=== PATIENT | female | born 1975 | race Caucasian/White ===

== ENCOUNTER 2019-10-17 19:07 | Emergency (ER) | payer MEDICARE, SELFPAY ==
--- NOTE | ~2019-10-17 | CT_ITS ---
EXAMINATION: CT facial bones wo con DATE: 10/17/2019 20:00 INDICATION: Nasal pain after fall from bed. TECHNIQUE: Computed tomography (CT) of the maxillofacial region was performed without intravenous con trast. The dose-length product was 579.22 mGy-cm. Automated exposure control and iterative reconstruc tion technique were employed. COMPARISON: None FINDINGS: MAXILLOFACIAL CT: There is a comminuted, mildly displaced bilateral nasal fracture. Orbits appear to be intact. Lamina papyracea within normal limits. There is left mastoid effusion. Ma ndible is intact. Temporomandibular joints are symmetric. Zygomatic arches are intact. Pterygoid plat es within normal limits. IMPRESSION: 1. Comminuted, mildly displaced bilateral nasal fractures. 2: Left mastoid effusion. Reviewed, dictated and finalized at location A. OR EXTRACTOR
--- NOTE | ~2019-10-17 | CT_ITS ---
EXAMINATION: CT brain wo con DATE: 10/17/2019 20:51 INDICATION: Dizziness. Head injury. TECHNIQUE: Computed tomography (CT) of the head was performed without intravenous contrast. The dose- length product was 529.67 mGy-cm. The mA was adjusted according to patient size. Iterative reconstruc tion technique was employed. COMPARISON: None FINDINGS: No acute intracranial hemorrhage, infarction, mass or mass effect. No ventriculomegaly or m idline shift. Basilar cisterns are patent. Paranasal sinuses are pneumatized. There is a left mastoid effusion. No depressed skull fractures. IMPRESSION: 1. No acute intracranial abnormality. Reviewed, dictated and finalized at location A. 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
[2019-10-17 19:12] VITALS: BP 133/97; PULSE 83; RESP 16; TEMP 36.4; O2SAT 97
--- NOTE | 2019-10-17 20:36 | ED.FALL ---
HPI - Fall General Chief Complaint: Fall Stated Complaint: nose injury Time Seen by Provider: 10/17/19 20:28 Source: patient and RN notes reviewed Mode of arrival: ambulatory Limitations: no limitations History of Present Illness HPI Narrative: Pt is a 44 y/o female presenting to the ED c/o frequent falls. Pt states she has fallen 6 times within the past 24 hrs. Pt notes she has been having these episodes for about 6 months intermittently and suspects she is falling asleep every time. PAtient states last night she remembers getting in bed and then she states she fell out of the bed. Pt states today she fell on her face and reports nasal pain, but denies any other injuries. Pt states her PCP, Dr. Morgan, is concerned about Narcolepsy and has ordered sleep studies for the pt. Pt denies experiencing dizziness prior to the falls, and also denies N/V, CP, or SOB. Pt states she is currently taking a Diuretic and previously had hypokalemia but notes her most recent blood test had a normal potassium level and she is not currently being supplemented for it. Onset (ago): month(s) (6) Loss of consciousness: yes Symptoms prior to fall: none Associated symptoms (after fall): other (Nasal pain) Related Data Allergies Allergy/AdvReac Type Severity Reaction Status Date / Time codeine Allergy Unknown Verified 05/29/17 11:47 naproxen Allergy Unknown Verified 05/29/17 11:47 phenobarbital Allergy Unknown Verified 05/29/17 11:47 ciprofloxacin AdvReac Intermediate Other Verified 12/28/18 06:49 levofloxacin AdvReac Intermediate Other Verified 12/28/18 06:49 Review of Systems Review of Systems: All systems reviewed & are unremarkable except as noted in HPI and below ENT: Reports nose pain Cardiovascular: Cardiovascular: Denies chest pain Respiratory: Respiratory: Denies dyspnea Gastrointestinal: Gastrointestinal: Denies nausea and Denies vomiting Neurologic: Denies dizziness PMFSH Past Medical History Medical History Abnormal uterine bleeding Anxiety Arthritis Bronchitis Colitis COPD (chronic obstructive pulmonary disease) Depression Fibroid Fibromyalgia Finger fracture GERD (gastroesophageal reflux disease) Hernia History of bipolar disorder HTN (hypertension) IBS (irritable bowel syndrome) Seizures UTI (urinary tract infection) Surgical History Surgical History H/O laparoscopy H/O: hysterectomy History of cholecystectomy History of ear surgery Lt typanoplasty History of tonsillectomy Family History Family History Other Cerebrovascular accident Family history of arthritis Family history of cardiovascular disease Family history of malignant neoplasm Family history of mental disorder Hypertension Social History Social History Smoking status: Current every day smoker Alcohol intake: never Gender identity (if verbalized by the patient): Female Exam Narrative: Exam Narrative: GENERAL: Well-appearing, well-nourished, and in no acute distress. HEAD: Normocephalic, atraumatic EYES: PERRLA and EOMI, conjunctiva clear without discharge EARS: TM's clear bilaterally without erythema or dullness NOSE: bruising at nasal bridge, no active epistaxis, no septal hematomaNares clear, THROAT:Mucous membranes moist, Oropharynx normal without erythema, exudate, peritonsillar swelling or fluctuance NECK: Supple, without lymphadenopathy or mass RESPIRATORY: No respiratory distress, Airway patent, Respirations non-labored, Clear to auscultation without rales, rhonchi or wheeze HEART: Regular rate and rhythm. No murmur heard. Normal peripheral pulses. ABDOMEN: Soft, nontender, nondistended, normal active bowel sounds. No masses. No rebound or guarding, No organomegaly. EXTREMITIES: No edema, normal strength with full range of motion. SKIN: Warm, dry,
--- NOTE | 2019-10-17 20:39 | ECG_ITS ---
Measurements Intervals [place] Rate: 78 P: 44 DE: 147 QRS: -7 QRSD: 106 T: -8 QT: 359 QTc: 411 Interpretive Statements SINUS RHYTHM POSSIBLE LEFT ATRIAL ENLARGEMENT POSSIBLE LEFT VENTRICULAR HYPERTROPHY MINIMAL Q WAVES- LATERAL LEADS BORDERLINE ST-T WAVE ABNORMALITY- ANTEROLAT/INF LEADS BORDERLINE ECG Electronically Signed On 10-18-2019 6:34:17 FAST FOOD RESTAURANT MANAGER by Mo Kenyon D.O.
[2019-10-17 21:06] LABS: Basophils Absolute Auto 0.1 K/mm3 (0.0-0.1); Basophils Percent Auto 0.5 % (0.2-1.2); Eosinophils Absolute Auto 0.6 K/mm3 (0-0.3); Hematocrit 41.9 % (37.0-47.0); Hemoglobin 13.6 g/dL (12.0-15.0); Immature Granulocyte Absolute 0.06 K/mm3 (0.00-0.031); Immature Granulocyte Percent A 0.4 % (0-0.5); Lymphocytes Percent Auto 22.2 % (18.3-44.2); Mean Corpuscular HGB Conc 32.5 g/dl (32-36); Mean Corpuscular Hemoglobin 28.3 pg (26-34); Mean Corpuscular Volume 87.1 fl (80-100); Mean Platelet Volume 10.4 fl (7.4-10.4); Monocytes Absolute Auto 1.2 K/mm3 (0.1-0.6); Monocytes Percent Auto 8.3 % (2.6-8.5); Neutrophils Absolute Auto 9.3 K/mm3 (1.3-6.7); Neutrophils Percent Auto 64.6 % (45.5-73.1); Platelet Count Result 353 k/mm3 (150-375); Red Blood Count 4.81 M/mm3 (4.2-5.4); White Blood Count 14.4 K/mm3 (4.5-10.0)
[2019-10-17 21:08] VITALS: BP 103/62; BP 127/74; BP 98/41; PULSE 75; PULSE 78; PULSE 81
[2019-10-17 21:18] LABS: Blood Urea Nitrogen 28 mg/dL (7-17); Calcium 8.9 mg/dL (8.4-10.2); Carbon Dioxide 32 mmol/L (22-30); Chloride 87 mmol/L (98-107); Estimated CRCL calculation 69 ml/min; Estimated Glomerular Filt Rate > 60; Glucose 110 mg/dL (65-105); Magnesium 2.1 mg/dL (1.6-2.3); Potassium 3.1 mmol/L (3.4-5.0); Sodium 134 mmol/L (137-145)
[2019-10-17 21:34] LABS: Add Urine Microscopic? YES; Appearance Urine Clear (Clear); Bilirubin Urine Negative (Negative); Blood Urine 1+ (Negative); Color Urine Straw (Yellow); Glucose Urine UA Negative (Negative); Ketones Urine Negative (Negative); Leukocyte Esterase Ur Negative LEU/UL (Negative); Mucus Urine Rare /lpf; Nitrate Urine Negative (Negative); Protein Urine Negative (Negative); RBC Urine 0-2 /hpf (0-2); Specific Grav Ur 1.014 (1.001-1.035); Squamous Epithelial Cell Urine Many /hpf (Few); Urobilinogen Urine Negative mg/dL (<2.0); WBC Urine 0-3 /hpf
[2019-10-17] MEDS: POTASSIUM CHLORIDE 20 MEQ TABLET 40 MEQ PO (22:21)
[2019-10-17] MEDS: LACTATED RINGERS 1,000 ML 999 ML IV CONT (22:21)
[2019-10-17] MEDS: ONDANSETRON HCL ODT 4 MG TABLET PO (22:22)
== END 2019-10-17 23:00 | disposition home or self-care (01) ==
PROVIDERS: Emergency Provider General Practice; PCP Family Medicine Adolescent Medicine
DX: S02.2XXA Fracture of nasal bones, initial encounter for closed fracture (principal); E87.6 Hypokalemia; R29.6 Repeated falls; M19.90 Unspecified osteoarthritis, unspecified site; J44.9 Chronic obstructive pulmonary disease, unspecified; M79.7 Fibromyalgia; K21.9 Gastro-esophageal reflux disease without esophagitis; I10 Essential (primary) hypertension; K58.9 Irritable bowel syndrome, unspecified; Z87.440 Personal history of urinary (tract) infections; F17.200 Nicotine dependence, unspecified, uncomplicated; W19.XXXA Unspecified fall, initial encounter
CPT/HCPCS: 36415; 70450; 70486; 80048; 81001; 83735; 85025; 93005; 99284; A9270; J7120

== ENCOUNTER 2019-10-26 14:20 | Outpatient (CLI) | payer MEDICARE, SELFPAY ==
--- NOTE | 2019-11-08 03:16 | SLEEP_ITS ---
Basic Nocturnal Polysomnogram DATE OF STUDY: 10/26/2019 REASON FOR STUDY: Hypersomnia. HISTORY: The patient is a 44-year-old female, 61 inches tall, weighing 193 pounds with a body mass index of 36.5. She was referred for hypersomnolence and excessive daytime fatigue. She did not complete a sleep survey, but did complete 1 in 2016, when she had a prior sleep study on May 31. At that time, she was having difficulty falling asleep and staying asleep. She was having history of snoring, which was loud enough that others complained about it. She did not wake up gasping for breath at night. She constantly complained of sweating at night. She denied heart palpitations at night. She frequently was falling asleep during the day, but not involuntarily or while driving. She did not have loss of muscle tone with extreme emotion. She denied sleep paralysis. She occasionally had vivid dreamlike scenes upon awakening or falling asleep. She rarely remembers her dreams. She constantly had depression and anxiety. She frequently had problems with crawly and achy feelings in her legs. She constantly woke up feeling stiff in the morning with sore achy muscles. Currently, she is sleeping during the day. Her sons will wake her up to ask her to do certain tasks. PAST MEDICAL HISTORY: Depression, acid reflux, bipolar disorder, chronic pain. CURRENT MEDICATIONS: 1. Sertraline 100 mg a day. 2. Bupropion XL 300 mg a day. 3. Cyclobenzaprine 10 mg t.i.d. 4. Metoprolol 50 mg a day. 5. Pregabalin 150 mg. 6. Buspirone 15 mg. 7. Estradiol 1 mg. 8. Methylphenidate 20 mg. 9. Indomethacin 50 mg. 10. Oxycodone/acetaminophen 10/325. 11. Divalproex 250 mg. 12. Omeprazole 20 mg. HABITS: There is a history of tobacco use. Previously, she was smoking 1-1/2 packs per day. She was using 4 cups of coffee per day. No alcohol or recreational drug use. DESCRIPTION OF THE STUDY: On the [place] Sleepiness Scale, her prior score was 11. This was conducted as a basic nocturnal polysomnogram using the [employer] multiple channel system including EOG, EEG, submental EMG, EKG, nasal and oral airflow using thermistors and nasal pressure sensors, chest and abdominal belts, body position data and pulse oximetry. This study was scored using [facility] guidelines. Duration of the recording time was 540.2 minutes, sleep time was 487.7 minutes. Sleep efficiency was 90.3%. The patient's sleep latency was 0 minutes as she was falling asleep while being hooked up with the various leads. Sleep architecture showed 3.7% stage 1 sleep, 55.8% stage 2 sleep, 21.3% stage 3 sleep and 9.5% stage REM. She spent 33.8% of the study supine, the remainder was non-supine. Sleep was fragmented. She had early sleep latency, but prolonged REM latency. She had a large amount of stage 3 sleep for her age. She had irregular sleep architecture with only 2 episodes of REM, which were both late in the study. She had fragmented sleep with shifts between stage wake, stage I, and stage REM. The overall apnea-hypopnea index was 5.2. The obstructive index is 4.8 and the central index is 0.4. She had 6 obstructive hypopneas in supine REM for an index of 55.4, which is extremely high. She had 9 obstructive hypopneas in non-supine REM for an index of 12.0. She had 1 obstructive apnea, 2 central apneas, 5 obstructive hypopneas in supine non-REM for an index of 2.7. There was 1 central apnea, 18 obstructive hypopneas in non-supine non-REM for an index of 4.4. The supine index was 4.5, non-supine index was 5.5. The lowest desaturation was 83%. The patient spent 16.6 minutes below 88%, which was 3.1% of the study. She had 41 desaturations of 4% or greater for an index of 4.6. REM desaturation index was 19.9. Mean saturation for the s
== END 2019-10-26 14:21 | disposition home or self-care (01) ==
LOC: ANHCSM 01-12 14:20
PROVIDERS: PCP Family Medicine Adolescent Medicine; Visit Provider Family Medicine Adolescent Medicine
DX: G47.10 Hypersomnia, unspecified (principal); G47.419 Narcolepsy without cataplexy; G47.33 Obstructive sleep apnea (adult) (pediatric); Z68.36 Body mass index [BMI] 36.0-36.9, adult
CPT/HCPCS: 95810

== ENCOUNTER 2020-05-09 14:21 | Outpatient (CLI) | payer MEDICARE, SELFPAY ==
--- NOTE | ~2020-05-09 | MM_ITS ---
EXAMINATION: MM screening jose BI w bhavik HISTORY: Screening TECHNIQUE: Craniocaudal and mediolateral oblique 3-D tomosynthesis images were obtained and synthetic 2-D images were generated. CAD analysis was submitted and interpreted. COMPARISON: Comparison to multiple prior studies sequentially, with oldest reviewed study dated 12/20. BREAST PARENCHYMAL COMPOSITION: There are scattered areas of fibroglandular density. FINDINGS: There is no evidence of suspicious mass, calcification, or architectural distortion to sugg est malignancy in either breast. There has been no suspicious interval change. IMPRESSION: 1. No mammographic evidence of malignancy. 2. Recommend routine screening mammography in one year. BI-RADS Category 1: Negative Reviewed, dictated and finalized at location A.
== END 2020-05-09 14:22 | disposition home or self-care (01) ==
PROVIDERS: PCP Family Medicine Adolescent Medicine; Visit Provider Obstetrics & Gynecology
DX: Z12.31 Encounter for screening mammogram for malignant neoplasm of breast (principal)
CPT/HCPCS: 77063; 77067

== ENCOUNTER 2021-01-14 11:16 | Outpatient (CLI) | payer MEDICARE, SELFPAY | END 2021-01-14 11:17 | disposition home or self-care (01) | LOC: ANHAUDIO 11:17 | PROVIDERS: PCP Family Medicine Adolescent Medicine; Visit Provider Otolaryngology | DX: H91.90 Unspecified hearing loss, unspecified ear (principal) | CPT/HCPCS: 92557; 92567 ==

== ENCOUNTER 2021-02-16 19:03 | Emergency (ER) | payer MEDICARE, SELFPAY ==
--- NOTE | ~2021-02-16 | XR_ITS ---
XR abdomen/kub 1V DATE: 02/16/2021 20:30 INDICATION: Constipation. Severe lower abdominal pain. Hernia. TECHNIQUE: 2 supine AP views COMPARISON: 10/19/2018 CT abdomen pelvis FINDINGS: There is a prominent of fecal material and gas within the colon, without apparent obstructi on. There are some gas-distended nondilated small bowel segments overlying the left lower abdomen. Surgical clips, right upper quadrant, consistent with cholecystectomy. No visceromegaly is evident. N o significant abnormal calcification is noted. IMPRESSION: Nonspecific abdomen Reviewed, dictated and finalized at Location A. Reviewed, dictated and finalized at location A. IMPRESSION: Nonspecific abdomen
--- NOTE | ~2021-02-16 | CT_ITS ---
EXAMINATION: CT abdomen pelvis w con INDICATION: Generalized abdominal pain TECHNIQUE: Computed tomographic images of the abdomen and pelvis were obtained after the administrati on of 100 cc of Omnipaque 350 intravenous contrast. The dose-length product (DLP) was 1057.06 mGy-cm. Automated exposure control and iterative reconstruction technique were employed. COMPARISON: 10/19/2018 FINDINGS: The lung bases are clear. The heart size is normal. The gallbladder is surgically absent. T here is mild enlargement of the common bile duct and central intrahepatic ducts which is likely due t o post cholecystectomy state. A 1.7 cm hemangioma is noted in the right hepatic lobe. The spleen, brewster creas, and right adrenal gland are normal. There is a 1.6 cm adenoma of the left adrenal gland. The k idneys are unremarkable. No pathologically enlarged abdominal or pelvic lymph nodes are identified. T here is no free intraperitoneal gas or evidence of bowel obstruction. There are two adjacent large mi dline ventral hernias containing fat and fluid. One is present at the level of the umbilicus and the other slightly more cranial. There is stranding of the associated herniated fat. The appendix is norm al. There is moderate lower lumbar spondylosis. IMPRESSION: 1. Large midline ventral hernias containing fat and fluid. Recommend clinical correlation for signs o f incarceration given stranding of the herniated fat. Reviewed, dictated and finalized at location A. IMPRESSION: 1. Large midline ventral hernias containing fat and fluid. Recommend clinical c orrelation for signs of incarceration given stranding of the herniated fat.
[2021-02-16 19:18] VITALS: BP 147/81; PULSE 86; RESP 18; TEMP 36.6; O2SAT 97
[2021-02-16 19:43] LABS: Basophils Absolute Auto 0.1 K/mm3 (0.0-0.1); Basophils Percent Auto 0.3 % (0.2-1.2); Eosinophils Absolute Auto 0.4 K/mm3 (0-0.3); Eosinophils Percent Auto 2.2 % (0-4.4); Hematocrit 44.9 % (37.0-47.0); Hemoglobin 14.8 g/dL (12.0-15.0); Immature Granulocyte Absolute 0.08 K/mm3 (0.00-0.031); Immature Granulocyte Percent A 0.5 % (0-0.5); Lymphocytes Percent Auto 31.7 % (18.3-44.2); Mean Corpuscular Hemoglobin 29.8 pg (26-34); Mean Corpuscular Volume 90.3 fl (80-100); Mean Platelet Volume 10.3 fl (7.4-10.4); Monocytes Absolute Auto 1.2 K/mm3 (0.1-0.6); Monocytes Percent Auto 7.2 % (2.6-8.5); Neutrophils Absolute Auto 9.7 K/mm3 (1.3-6.7); Neutrophils Percent Auto 58.1 % (45.5-73.1); Platelet Count Result 342 k/mm3 (150-375); Red Blood Count 4.97 M/mm3 (4.2-5.4); Red Cell Distribution Width 13.1 % (11.5-14.5); White Blood Count 16.7 K/mm3 (4.5-10.0)
[2021-02-16 19:49] VITALS: BP 151/100; PULSE 80; RESP 18; O2SAT 95
[2021-02-16 19:51] LABS: Add Urine Microscopic? YES; Appearance Urine Clear (Clear); Bacteria Urine Trace /hpf; Bilirubin Urine 1+ (Negative); Blood Urine Negative (Negative); Color Urine Amber (Yellow); Glucose Urine UA Negative (Negative); Ketones Urine Trace mg/dL (Negative); Leukocyte Esterase Ur Negative LEU/UL (Negative); Mucus Urine Few /lpf; Nitrate Urine Negative (Negative); Protein Urine 2+ mg/dL (Negative); RBC Urine 0-2 /hpf (0-2); Squamous Epithelial Cell Urine Moderate /hpf (Few); WBC Urine 0-3 /hpf
[2021-02-16 19:52] LABS: Specific Grav Ur 1.035 (1.001-1.035)
[2021-02-16 19:54] LABS: Alanine Aminotransferase 13 U/L (4-35); Albumin Level 4.2 g/dL (3.5-5.1); Alkaline Phosphatase 107 U/L (38-126); Anion Gap 7 mmol/L (8-16); Aspartate Amino Transferase 20 U/L (14-36); Bilirubin,Total 0.3 mg/dL (0.2-1.3); Blood Urea Nitrogen 14 mg/dL (7-17); Calcium 8.7 mg/dL (8.4-10.2); Carbon Dioxide 30 mmol/L (22-30); Chloride 101 mmol/L (98-107); Estimated Glomerular Filt Rate 60; Glucose 90 mg/dL (65-105); Lipase 48 U/L (23-300); Potassium 3.8 mmol/L (3.4-5.0); Sodium 138 mmol/L (137-145)
--- NOTE | 2021-02-16 20:08 | ED.GENADULT ---
HPI - General Adult General Chief complaint: Abdominal Pain Stated complaint: hernia Time Seen by Provider: 02/16/21 19:27 History of Present Illness HPI narrative: Patient is a 45-year-old female who presents ER with mid abdominal pain. Patient has a known ventral hernia. Reports become more sore today and she first noticed it while leaning against a countertop. She has not had a bowel movement in 2 days. No bloating. Denies nausea/vomiting/shortness of breath/chest pain. Has taken Percocet without improvement of her discomfort. Patient reports radiation to her flank bilaterally. No urinary frequency urgency or dysuria. Related Data Home Medications Medication Instructions Recorded Confirmed albuterol sulfate 2.5 mg INHALATION Q4-6H PRN 07/31/20 01/24/21 bupropion HCl 300 mg 24 hr tablet, 300 mg PO QAM 07/31/20 01/24/21 extended release divalproex 250 mg tablet,delayed 250 mg PO Q12H 07/31/20 01/24/21 release omeprazole 20 mg capsule,delayed 20 mg PO DAILY 07/31/20 01/24/21 release oxycodone-acetaminophen 10 mg-325 1 tablet PO Q8H PRN 07/31/20 01/24/21 mg tablet sulindac 200 mg tablet 200 mg PO BID 07/31/20 01/24/21 estradiol 1 mg tablet 1 mg PO DAILY 01/03/21 01/24/21 venlafaxine 150 mg tablet,extended 150 mg PO DAILY 01/24/21 01/24/21 release 24 hr Allergies Allergy/AdvReac Type Severity Reaction Status Date / Time codeine Allergy Unknown Unknown Verified 01/22/21 08:10 naproxen Allergy Unknown Unknown Verified 01/22/21 08:10 phenobarbital Allergy Unknown Unknown Verified 01/22/21 08:10 ciprofloxacin AdvReac Intermediate Other Verified 01/22/21 08:10 levofloxacin AdvReac Intermediate Other Verified 01/22/21 08:10 Review of Systems Review of Systems: All systems reviewed & are unremarkable except as noted in HPI and below Constitutional: Constitutional: Denies chills, Denies fever(s) and Denies weakness Cardiovascular: Cardiovascular: Denies chest pain Respiratory: Respiratory: Denies cough and Denies dyspnea Gastrointestinal: Gastrointestinal: Reports abdominal pain, Denies bloating, Reports constipation, Denies diarrhea, Denies nausea and Denies vomiting Genitourinary: Genitourinary: Denies hematuria, Denies dysuria and Reports flank pain PMFSH Past Medical History Medical History Abnormal uterine bleeding Anxiety Arthritis Arthritis of carpometacarpal (CMC) joint of right thumb BMI 36.0-36.9,adult Bronchitis Colitis COPD (chronic obstructive pulmonary disease) Depression Fibroid Fibromyalgia Finger fracture GERD (gastroesophageal reflux disease) Hernia History of bipolar disorder HTN (hypertension) IBS (irritable bowel syndrome) Seizures UTI (urinary tract infection) Surgical History Surgical History H/O knee surgery left tka 2018, Dr. mccauley right tka 2019, Dr. mccauley H/O laparoscopy H/O: hysterectomy History of cholecystectomy History of ear surgery Lt typanoplasty History of tonsillectomy Family History Family History Other Cerebrovascular accident Family history of arthritis Family history of cardiovascular disease Family history of malignant neoplasm Family history of mental disorder Hypertension Social History Social History Smoking status: Current every day smoker Alcohol intake: never Substance use type: marijuana Other substance usage details: medical marijuana Gender identity (if verbalized by the patient): Female Exam Narrative: Exam Narrative: GENERAL: Well-appearing, well-nourished, and in no acute distress. HEAD: Normocephalic, atraumatic. ENT: Mucous membranes moist. CHEST: Clear to auscultation. No respiratory distress. HEART: Regular rate and rhythm. Normal peripheral pulses. ABDOMEN: Soft, nontender, nondisten
[2021-02-16] MEDS: MORPHINE SULFATE (*CRX) 4 MG/ML INJ IV PUSH ×2 (20:15→22:30)
[2021-02-16 20:44] VITALS: BP 130/87; PULSE 75; RESP 16; O2SAT 98
--- NOTE | 2021-02-16 21:27 | PC.NURSE ---
pt called out using call light, states her pain has returned. this rn informed md perrin. he states hes going to put in orders for CT of abd and bentyl.
[2021-02-16] MEDS: DICYCLOMINE HCL INJ 20 MG/2 ML VIAL IM (21:33)
[2021-02-16 21:35] VITALS: BP 138/82; PULSE 72; RESP 18; O2SAT 97
--- NOTE | 2021-02-16 22:07 | PC.NURSE ---
pt ambulating to restroom at this time. states pain has decreased to 5/10. md notified.
[2021-02-16 22:19] VITALS: BP 129/83; PULSE 71; RESP 18; O2SAT 97
[2021-02-16 23:39] VITALS: BP 125/89; PULSE 82; RESP 18; O2SAT 99
[2021-02-17 00:16] VITALS: BP 125/76; PULSE 80; RESP 16; O2SAT 100
== END 2021-02-17 00:18 | disposition home or self-care (01) ==
PROVIDERS: Family Medicine; Emergency Provider Emergency Medicine; PCP Family Medicine Adolescent Medicine
DX: K43.9 Ventral hernia without obstruction or gangrene (principal); F41.9 Anxiety disorder, unspecified; M19.90 Unspecified osteoarthritis, unspecified site; J44.9 Chronic obstructive pulmonary disease, unspecified; F32.9 Major depressive disorder, single episode, unspecified; M79.7 Fibromyalgia; K21.9 Gastro-esophageal reflux disease without esophagitis; I10 Essential (primary) hypertension; G47.30 Sleep apnea, unspecified
CPT/HCPCS: 36415; 74018; 74177; 80053; 81001; 81025; 83690; 85025; 96372; 96374; 96376; 99284; J0500; J2270; Q9967

== ENCOUNTER 2021-06-02 10:34 | Emergency (ER) | payer MEDICARE, SELFPAY ==
[2021-06-02 11:12] VITALS: BP 148/84; PULSE 62; RESP 14; TEMP 36.1; O2SAT 98
--- NOTE | 2021-06-02 12:22 | ED.LOWEXIN ---
HPI - Extremity Injury (Lower) General Chief Complaint: Extremity Injury, Lower Stated Complaint: rt toe pain History of Present Illness HPI Narrative: This is a 46-year-old female comes in complaining of right toe pain states it has been going on for the past week patient states that she tried to get this to due to been swollen and is draining Related Data Home Medications Medication Instructions Recorded Confirmed bupropion HCl 300 mg 24 hr tablet, 300 mg PO QAM 07/31/20 06/02/21 extended release divalproex 250 mg tablet,delayed 250 mg PO Q12H 07/31/20 06/02/21 release omeprazole 20 mg capsule,delayed 20 mg PO DAILY 07/31/20 06/02/21 release oxycodone-acetaminophen 10 mg-325 1 tablet PO Q6H PRN 07/31/20 06/02/21 mg tablet sulindac 200 mg tablet 200 mg PO BID 07/31/20 06/02/21 estradiol 1 mg tablet 1 mg PO DAILY 01/03/21 06/02/21 venlafaxine 150 mg tablet,extended 150 mg PO DAILY 01/24/21 06/02/21 release 24 hr atorvastatin 20 mg tablet 20 mg PO DAILY 04/29/21 06/02/21 metoprolol succinate 50 mg 50 mg PO DAILY 04/29/21 06/02/21 tablet,extended release 24 hr Allergies Allergy/AdvReac Type Severity Reaction Status Date / Time codeine Allergy Unknown Migraine Verified 06/02/21 11:25 naproxen Allergy Unknown Swelling Verified 06/02/21 11:25 phenobarbital Allergy Unknown Seizure Verified 06/02/21 11:25 ciprofloxacin AdvReac Intermediate Other Verified 06/02/21 11:25 levofloxacin AdvReac Intermediate Other Verified 06/02/21 11:25 Review of Systems Review of Systems: CONSTITUTIONAL: Denies fever, chills, or sweats. EYES: Denies visual changes, redness, or discharge. ENT: Denies rhinorrhea, congestion, sore throat, or otalgia. CARDIOVASCULAR:Denies chest pain, palpitations, or edema. RESPIRATORY: Denies cough or dyspnea. GASTROINTESTINAL: Denies abdominal pain, nausea, vomiting, or diarrhea. GENITOURINARY: Denies dysuria or hematuria. SKIN:[Denies rash or itching. MUSCULOSKELETAL:Denies back pain, positive right toe pain joint pain, or myalgia. NEUROLOGIC: Denies headache, numbness, or weakness. PSYCHIATRIC:Denies anxiety or depression [facility] Past Medical History Medical History (Updated 06/02/21 @ 12:24 by Ayan Bejarano NP) Abnormal uterine bleeding Anxiety Arthritis Arthritis of carpometacarpal (CMC) joint of right thumb BMI 36.0-36.9,adult Bronchitis Colitis COPD (chronic obstructive pulmonary disease) Depression Fibroid Fibromyalgia Finger fracture GERD (gastroesophageal reflux disease) Hernia History of bipolar disorder HTN (hypertension) IBS (irritable bowel syndrome) Seizures UTI (urinary tract infection) Surgical History Surgical History H/O knee surgery left tka 2018, Dr. mccauley right tka 2019, Dr. mccauley H/O laparoscopy H/O: hysterectomy History of cholecystectomy History of ear surgery Lt typanoplasty History of tonsillectomy Family History Family History Father Heart disease Hypertension Mother Heart disease Hypertension Melanoma Other Cerebrovascular accident Family history of arthritis Family history of cardiovascular disease Family history of malignant neoplasm Family history of mental disorder Social History Social History Years smoked: 25 Smoking status: Current every day smoker Alcohol intake: never Substance use type: marijuana Other substance usage details: medical marijuana Additional occupation/education comments: disabled Gender identity (if verbalized by the patient): Female Comments At time as signature, I have reviewed and agree with nursing past medical, social, surgical and family history. Please see nursing chart for further information. There is no relevant family history pertinent to the presenting complaint. Exam Narrative: GE
== END 2021-06-02 12:30 | disposition home or self-care (01) ==
PROVIDERS: Emergency Provider Nurse Practitioner Family; PCP Family Medicine Adolescent Medicine
DX: L60.0 Ingrowing nail (principal); F17.200 Nicotine dependence, unspecified, uncomplicated; J44.9 Chronic obstructive pulmonary disease, unspecified; M79.7 Fibromyalgia; K21.9 Gastro-esophageal reflux disease without esophagitis; I10 Essential (primary) hypertension; G40.909 Epilepsy, unspecified, not intractable, without status epilepticus; F41.9 Anxiety disorder, unspecified; F32.A Depression, unspecified; M18.9 Osteoarthritis of first carpometacarpal joint, unspecified
CPT/HCPCS: 99213; G0463

== ENCOUNTER 2021-07-24 15:56 | Emergency (ER) | payer MEDICARE, SELFPAY ==
--- NOTE | ~2021-07-24 | XR_ITS ---
EXAMINATION: XR orbits min 4V DATE: 07/24/2021 16:56 INDICATION: Right periorbital injury. TECHNIQUE: 4 views of the orbits were obtained. COMPARISON: None. FINDINGS: Bone alignment is normal. No fracture. IMPRESSION: 1. No fracture. Reviewed, dictated and finalized at location B. GER EDITORIAL IMPRESSION: 1. No fracture.
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
[2021-07-24 16:04] VITALS: BP 146/89; PULSE 84; RESP 14; TEMP 36.5; O2SAT 98
== END 2021-07-24 17:13 | disposition home or self-care (01) ==
PROVIDERS: Emergency Provider Nurse Practitioner Family; PCP Family Medicine Adolescent Medicine
DX: S05.11XA Contusion of eyeball and orbital tissues, right eye, initial encounter (principal); I10 Essential (primary) hypertension; F17.200 Nicotine dependence, unspecified, uncomplicated; W20.8XXA Other cause of strike by thrown, projected or falling object, initial encounter
CPT/HCPCS: 70200; 99213; G0463

== ENCOUNTER 2022-01-13 12:10 | Outpatient (CLI) | payer MEDICARE, SELFPAY ==
--- NOTE | ~2022-01-13 | XR_ITS ---
EXAMINATION: XR chest 2V 01/13/2022 13:25 INDICATION: Dyspnea PROCEDURE: 2 view chest COMPARISON: 10/19/2018 FINDINGS: The lungs are clear. The cardiomediastinal silhouette is within normal limits. There are no pleural effusions. There is no pneumothorax suspected. There are cholecystectomy clips. IMPRESSION: 1: NO ACUTE CARDIOPULMONARY DISEASE. Reviewed, dictated and finalized at location A.
--- NOTE | 2022-01-13 12:31 | ECG_ITS ---
Measurements Intervals Fowler Rate: 58 P: 25 KS: 142 QRS: 7 QRSD: 102 T: 12 QT: 406 QTc: 400 Interpretive Statements SINUS BRADYCARDIA BASELINE ARTIFACT- I, II, III, AVR, AVL, AVF BORDERLINE ECG Electronically Signed On 01-13-2022 12:48:45 CDT by Mo Kenyon D.O.
[2022-01-13 12:55] LABS: Basophils Absolute Auto 0.1 K/mm3 (0.0-0.1); Basophils Percent Auto 0.5 % (0.2-1.2); Eosinophils Absolute Auto 0.3 K/mm3 (0-0.3); Eosinophils Percent Auto 2.3 % (0-4.4); Hematocrit 46.2 % (37.0-47.0); Hemoglobin 14.9 g/dL (12.0-15.0); Immature Granulocyte Absolute 0.04 K/mm3 (0.00-0.031); Immature Granulocyte Percent A 0.3 % (0-0.5); Lymphocytes Absolute Auto 4.85 K/mm3 (0.9-3.2); Lymphocytes Percent Auto 35.7 % (18.3-44.2); Mean Corpuscular HGB Conc 32.3 g/dl (32-36); Mean Corpuscular Hemoglobin 29.3 pg (26-34); Mean Corpuscular Volume 90.8 fl (80-100); Mean Platelet Volume 10.6 fl (7.4-10.4); Monocytes Absolute Auto 0.8 K/mm3 (0.1-0.6); Neutrophils Absolute Auto 7.5 K/mm3 (1.3-6.7); Neutrophils Percent Auto 55.2 % (45.5-73.1); Platelet Count Result 321 k/mm3 (150-375); Red Blood Count 5.09 M/mm3 (4.2-5.4); Red Cell Distribution Width 12.9 % (11.5-14.5); White Blood Count 13.6 K/mm3 (4.5-10.0)
[2022-01-13 13:11] LABS: Anion Gap 4 mmol/L (8-16); Blood Urea Nitrogen 12 mg/dL (7-17); Calcium 8.7 mg/dL (8.4-10.2); Carbon Dioxide 31 mmol/L (22-30); Chloride 101 mmol/L (98-107); Estimated Glomerular Filt Rate > 60; Glucose 92 mg/dL (65-110); Potassium 4.4 mmol/L (3.4-5.0); Sodium 136 mmol/L (137-145)
[2022-01-13 13:19] LABS: Anisocytosis 1+ (NORMAL); Atypical Lymphocytes Present; Hypochromasia 1+ (NORMAL); Platelet Estimate Adequate (Adequate)
[2022-01-13 13:23] LABS: Valproic Acid < 10.0 ug/mL (50-120)
== END 2022-01-13 12:11 | disposition home or self-care (01) ==
LOC: ANHSURGERY 12:12
PROVIDERS: Anesthesiology; PCP Family Medicine Adolescent Medicine; Visit Provider Surgery
DX: Z01.818 Encounter for other preprocedural examination (principal); K43.9 Ventral hernia without obstruction or gangrene; G40.909 Epilepsy, unspecified, not intractable, without status epilepticus; R00.1 Bradycardia, unspecified
CPT/HCPCS: 36415; 71046; 80048; 80164; 85025; 86850; 86900; 86901; 93005

== ENCOUNTER 2022-01-17 18:18 | Observation (INO) | payer MEDICARE, SELFPAY ==
[2022-01-13 10:04] VITALS: BMI 36.2
--- NOTE | 2022-01-13 10:36 | PC.NURSE ---
Report to the Outpatient Waiting Room, entrance under the green pavilion located off [facility], at 1000 on 01-16-22. OR Time: 1200. - You and your visitor will be asked a series of questions to screen for COVID 19 for your protection. - Only one visitor is allowed at this time. - The patient visitor is requested to leave or wait in car when not with patient. - A mask is required within the hospital. Patients may have clear liquids (water, carbonated beverages, clear teas, apple juice) until 3 hours prior to surgery with a maximum of 20 ounces. 0900 - No food from midnight until time of surgery - Infants may have breast milk until 4 hours before surgery, infant formula 6 hours prior to surgery. - Children will be allowed to drink immediately following surgery. If applicable, please bring a bottle or sippy cup to assist with drinking. Juice, water, soda, and popsicles are readily available. For infants on formula, please bring formula the day of surgery. Pacifiers are allowed. Take the following medications with a SIP of water the morning of surgery: Percocet if needed, atorvastatin, bupropion, metoprolol, venlafaxine Medications to discontinue per physician: Sulindac Date to take last dose: Per Dr. Brown (Call office to see if it needs to be stopped) Please no make-up, nail surinamese, hairspray, perfume, deodorant, or body powder the day of surgery. No jewelry (including any body piercings) or valuables the day of surgery, leave them at home. Please take a shower or bath the night before, or the morning of, surgery with an antibacterial soap. (Hibiclens) Wear comfortable, loose fitting clothing. Children are encouraged to wear pajamas. - Jewelry must be removed prior to entering the operating room. Rings and piercings that are not removed may be cut off. - The hospital will not accept responsibility for valuables. - Please leave all valuables, including medications, at home the day of surgery. If you are going home after surgery, a licensed helper/driver must drive you home. - NO public transportation without another adult. - We recommend that an adult stay with you for 24 hours following discharge. - We also recommend that you do not drive, make important decision, drink alcoholic beverages, or take any drugs that were not prescribed by your health care provider for at least 24 hours after your discharge time. For Pediatric surgeries, we recommend two adults accompany the child home (only one inside the building at this time). Follow any additional instructions given to you from your surgeon. If you or anyone in your household have experienced Covid symptoms in the past week, please notify your surgeon or the nurse liaison at the phone number below for possible testing. Telephone instructions given to Barbara Stewart and asked if any additional questions and then verbalized understanding. Patient advised to call surgeon office or pre surgery nurse liaison [phone] if any additional questions.
--- NOTE | 2022-01-15 16:33 | PM.IMHP ---
H&P: HPI History of Present Illness Date/Time: 01/15/22 16:33 Chief Complaint: Ventral hernia Narrative: the patient is a 46-year-old woman whom I saw initially in the office back on April 29, 2021 for a large wide-mouth ventral hernia with associated umbilical hernia. The ventral hernia is just cephalad to the umbilical hernia. She was to have surgery last fall but canceled for personal reasons. She came back November 04, 2021 and was interested again in repairing her hernias. At this point, she also was interested in panniculectomy as she does get some rashes and irritation from the abdominal panniculus. She was referred to Dr. Ricks but later decided against the panniculectomy. She was then seen a 3rd time in the office on December 09. She continued to have supraumbilical ventral hernia as well as an umbilical hernia which had really not changed much since her initial visit of April 29, 2021. She did have a CT scan of the abdomen and pelvis February 17, 2021 which did show both the hernias as described. Patient takes narcotics chronically for fibromyalgia. She also has a history of obstructive sleep apnea not on CPAP. Recent sleep study showed an AHI I in the 50s. She smokes cigarettes and marijuana. She is taken to surgery now for laparoscopic repair of these ventral hernias under general anesthesia. activity.The hernias do cause pain, particularly with heavy activity. She had an episode of severe pain in January of 2021 which was the occasion for the CT scan referred to above. The hernias have remained reducible on her office visits but are still painful particularly when they are bulging. She is taken to surgery now for laparoscopic repair with mesh. Review of Systems Review of Systems: All systems reviewed & are unremarkable except as noted in HPI and below Constitutional: Constitutional: Denies chills and Denies fever(s) Cardiovascular: Cardiovascular: Denies chest pain, Denies diaphoresis, Denies dyspnea and Denies paroxysmal nocturnal dyspnea Respiratory: Respiratory: Reports as per HPI, Denies chest congestion, Reports cough and Denies dyspnea Integumentary/Breasts: Skin/Breast: Denies lesions and Denies rash PMFSH Past Medical History Medical History Arthritis of carpometacarpal (CMC) joint of right thumb Depression Fibromyalgia GERD (gastroesophageal reflux disease) HTN (hypertension) IBS (irritable bowel syndrome) Surgical History Surgical History H/O knee surgery left tka 2018, Dr. mccauley right tka 2019, Dr. mccauley H/O laparoscopy H/O: hysterectomy History of cholecystectomy History of ear surgery Lt typanoplasty History of tonsillectomy Family History Family History Father Heart disease Hypertension Mother Heart disease Hypertension Melanoma Other Cerebrovascular accident Family history of arthritis Family history of cardiovascular disease Family history of malignant neoplasm Family history of mental disorder Social History Social History Smoking packs per day: 1 Smoking cigarettes per day: 20.0 Years smoked: 25 Smoking pack-years: 25.00 Smoking status: Current every day smoker Tobacco type: cigarettes and e-cigarettes/vaping Second hand tobacco smoke exposure: Yes Alcohol intake: never Substance use: current Substance use type: marijuana Other substance usage details: medical marijuana Additional occupation/education comments: disabled Gender identity (if verbalized by the patient): Female Sexual Orientation (if Verbalized by the Patient): Straight or Heterosexual Spiritual care concerns: No Agree to blood products: Yes Meds Home Medications and Allergies Home Medications Medication Instructions Recorded Confirme
[2022-01-16] VITALS (18 sets, daily range): BP systolic 94–170; BP diastolic 52–88; PULSE 49–75; RESP 12–18; TEMP 36.2–36.7; O2SAT 92–100; BMI 36.3
[2022-01-16] MEDS: ACETAMINOPHEN 500 MG TABLET 1000 MG PO (10:30)
[2022-01-16] MEDS: LACTATED RINGERS 1,000 ML 30 ML IV CONT ×2 (10:35→14:21)
--- NOTE | 2022-01-16 10:49 | WPDANESEPPF ---
Anes - Initial Pre Proc Eval Procedure: Operation Date: 01/16/22 12:00 Proposed Procedures p Laparoscopic Repair Ventral Hernia - Gabriel Brown MD Date/Time: 01/16/22 10:49 Surgeon: Gabriel Brown MD Pre Op Diagnosis: ventral hernia Patient Data Age: 46 Gender: F Height: 1.55 m Weight: 87.09 kg Allergies Allergy/AdvReac Type Severity Reaction Status Date / Time codeine Allergy Unknown Migraine Verified 01/13/22 10:51 naproxen Allergy Unknown Swelling Verified 01/13/22 10:51 phenobarbital Allergy Unknown Seizure Verified 01/13/22 10:51 ciprofloxacin AdvReac Intermediate Other Verified 01/13/22 10:51 levofloxacin AdvReac Intermediate Other Verified 01/13/22 10:51 metal AdvReac Mild Rash Uncoded 01/13/22 10:51 Home Medications Medication Instructions Recorded Confirmed Type bupropion HCl 300 mg 24 hr tablet, 300 mg PO QAM 07/31/20 01/13/22 History extended release divalproex 250 mg tablet,delayed 500 mg PO HS 07/31/20 01/13/22 History release venlafaxine 150 mg tablet,extended 150 mg PO DAILY 01/24/21 01/13/22 History release 24 hr atorvastatin 20 mg tablet 40 mg PO DAILY 04/29/21 01/13/22 History estradiol 1 mg tablet 1 mg PO DAILY #90 tablet 09/20/21 01/13/22 Rx metoprolol succinate 50 mg 50 mg PO BID tablet 10/31/21 01/13/22 History tablet,extended release 24 hr pregabalin 150 mg capsule 150 mg PO BID #180 cap 10/31/21 01/13/22 Rx sulindac 200 mg tablet 200 mg PO BID #60 tablet 11/19/21 01/13/22 Rx oxycodone-acetaminophen 10 mg-325 1 tablet PO Q4H PRN #180 tablet 12/26/21 01/13/22 Rx mg tablet omeprazole 20 mg PO HS 01/13/22 01/13/22 History Patient hx anesthesia problems: none Family hx anesthesia problems: none Results Review: All pre-operative results and documents have been reviewed as part of the pre-operative evaluation. [facility] Past Medical History Medical History (Updated 01/16/22 @ 10:51 by Kun Weldon MD) Arthritis of carpometacarpal (CMC) joint of right thumb BMI 36.0-36.9,adult Chronic use of opiate drug for therapeutic purpose COPD (chronic obstructive pulmonary disease) Depression Fibromyalgia Gastro-esophageal reflux disease without esophagitis Generalized anxiety disorder GERD (gastroesophageal reflux disease) HTN (hypertension) IBS (irritable bowel syndrome) Major depressive disorder, recurrent, moderate Mixed hyperlipidemia Obstructive sleep apnea (adult) (pediatric) Tobacco abuse Ventral hernia without obstruction or gangrene Surgical History Surgical History H/O knee surgery left tka 2018, Dr. mccauley right tka 2019, Dr. mccauley H/O laparoscopy H/O: hysterectomy History of cholecystectomy History of ear surgery Lt typanoplasty History of tonsillectomy Family History Family History Father Heart disease Hypertension Mother Heart disease Hypertension Melanoma Other Cerebrovascular accident Family history of arthritis Family history of cardiovascular disease Family history of malignant neoplasm Family history of mental disorder Social History Social History Smoking packs per day: 1 Smoking cigarettes per day: 20.0 Years smoked: 25 Smoking pack-years: 25.00 Smoking status: Current every day smoker Tobacco type: cigarettes and e-cigarettes/vaping Second hand tobacco smoke exposure: Yes Alcohol intake: never Substance use: current Substance use type: marijuana Other substance usage details: medical marijuana Living arrangements: with family Additional occupation/education comments: disabled Gender identity (if verbalized by the patient): Female Sexual Orientation (if Verbalized by the Patient): Straight or Heterosexual Spiritual care concerns: No Agree to blood products: Yes Anes - Eval Final PreProcedure Day of P
--- NOTE | 2022-01-16 11:44 | WPDHPUPDATE1 ---
History and Physical Update Update Date/Time: 01/16/22 11:44 History and Physical has been reviewed, including an updated exam of the patient. There are NO changes in the patient's condition. Risks, benefits, and alternatives have been discussed and questions answered. Patient agrees to proceed with procedure.
[2022-01-16] MEDS: ceFAZolin 2 GM/D5W 50 ML 2 GM/50 ML BAG IVPB (12:06)
[2022-01-16] MEDS: LIDO 2%/EPINEPHRINE 1:100,000 20 ML VIAL INFILTRATE (12:35)
--- NOTE | 2022-01-16 13:18 | SUR.OPER ---
XIMENA ST MESH LOT [id number], 2023-06-27.
--- NOTE | 2022-01-16 13:41 | SUR.OPER ---
OPTIFIX AT LOT [id number], EXP 2023-07-28 X2
--- NOTE | 2022-01-16 14:21 | W.PM.PROC2 ---
Procedure Note - Detailed Date of Procedure 01/16/22 Pre-op Diagnosis ventral hernia, umbilical hernia Post-op Diagnosis Same Procedure Performed Laparoscopic repair ventral and umbilical hernias with 15 x [address] underlay mesh Surgeon Gabriel Brown MD Scientific Software Engineer Miriam THOMAS Anesthesia General and Local (2% lidocaine with epinephrine) Indications Patient is a 46-year-old woman with a supraumbilical ventral hernia that is large and bothersome as well as a smaller umbilical hernia. She was evaluated both by examination and CT scan. She is taken to surgery now for laparoscopic repair of these hernias. Findings There was quite a bit of chronically incarcerated omentum in both hernias. This was eventually able to be reduced. No bowel involvement was noted. The greatest width of the 2 hernias was 4 cm. The overall length of the 2 hernias was 7 cm. Description of Procedure Patient was taken to surgery and induced into general anesthesia. The abdomen is prepped and draped. Trocars were placed in the usual fashion using local anesthetic and applied Medical optical trocars. The initial left lateral subcostal trocar was placed. We insufflated and then placed a left mid abdominal lateral trocar and a left lower quadrant 10 11 trocar. There were adhesions to the anterior abdominal wall of omentum but primarily the omentum was chronically incarcerated in the 2 hernias. Traction was placed on each of the hernias and some of the fibrous attachments to the edge of the hernia defect were divided sharply. It was difficult reducing each of the hernias. Finally the umbilical hernia was able to be completely reduced. This allowed more access to the supraumbilical ventral hernia and with additional traction and dissection I was able to reduce this hernia fully as well. I then divided the attachments of the falciform ligament to the anterior abdominal wall well up to nearly the xiphoid process. This gave plenty of room for mesh attachment in the midline in the cephalad direction. I measured each of the hernia defects with findings as above. I then used a 22 gauge needle and by piercing the skin I was able to alethea on the skin the general outline of each of the hernias. I then placed the mesh over the hernia outlines and marked the circumference of the mesh. From there I placed the positions of the 4 transfascial sutures that would be placed. I then used 0 Redkey-Ajit suture and placed 4 equally distant transfascial sutures on the 15 x [address] mesh. The mesh was then rolled and introduced into the abdominal cavity. It was unrolled and positioned appropriately on the abdominal wall viscera. We then used the granny needle and passed each of the transfascial sutures trans abdominally so that the sutures were coming out the small incision associated with each transfascial suture. I did have to reposition the cephalad and caudad transfascial sutures as the initial positioning was not long enough. Once this was completed, we pulled up each of the suture and the mesh appeared to be in excellent position. I then decompressed the abdomen and tied each of the sutures. We then reinsufflated and began tacking the mesh to the anterior abdominal wall. Opti Fix AT Tacker was used. I placed another 5 mm port on the right upper abdomen to approach the mesh from the patient's right side and better facilitate tacking of the left side of the mesh. Multiple tacks were placed and the mesh was well secured in good position. We reviewed the areas of mesh placement as well as the location of the hernias. All seem to be appropriate with the hernias well covered with at least 5 cm overlap in every direction. I then used the Benoit cone and granny suture Passer to close the left lower quadrant 10 11 port. This was done with an 0 Vicryl suture. We then evacuated CO2 and removed the trocar sleeves. Trocar site incisions were closed with subcuticular 4-0 Monocryl
[2022-01-16] MEDS: fentaNYL CITRATE INJ (*CRX) 100 MCG/2 ML VIAL 25 MCG IV PUSH ×8 (14:37→15:00)
[2022-01-16] MEDS: HYDROmorphone HCL INJ (*CRX) 1 MG/ML SYR 0.5 MG IV PUSH ×6 (15:11→16:26)
--- NOTE | 2022-01-16 16:39 | ADMGEN ---
This patient, Barbara Stewart, was admitted to [facility]. Patient/family oriented to hospital policies and general routines including ID bracelet, bed and alarms, visiting hours, pain management, procedures, bathroom and other care routines, personal items, smoking policy, room service/diet, and visiting hours. Information on how to activate the Rapid Response Team has been discussed. Patient/Family are encouraged to report perceived risks to care and to ask questions if they do not understand what they are told or what they should do.
[2022-01-16] MEDS: oxyCODONE/ACETAMINOPHEN (*CRX) 5-325 MG TABLET 1 TABLET PO ×2 (17:15→23:34)
[2022-01-16] MEDS: PREGABALIN (*CRX) 75 MG CAPSULE 150 MG PO (17:15)
[2022-01-16] MEDS: LACTATED RINGERS 1,000 ML 80 ML IV CONT (17:15)
--- NOTE | 2022-01-16 17:16 | PM.IMCN ---
Assessment and Plan Assessment and plan (1) S/P repair of ventral hernia: Code(s): Z98.890 - Other specified postprocedural states; Z87.19 - Personal history of other diseases of the digestive system Status: Acute (2) Chronic use of opiate drug for therapeutic purpose: Code(s): Z79.891 - USP (current) use of opiate analgesic Status: Chronic (3) Mixed hyperlipidemia: Code(s): E78.2 - Mixed hyperlipidemia Status: Acute (4) Generalized anxiety disorder: Code(s): F41.1 - Generalized anxiety disorder Status: Acute (5) Obstructive sleep apnea (adult) (pediatric): Code(s): G47.33 - Obstructive sleep apnea (adult) (pediatric) Status: Chronic (6) COPD (chronic obstructive pulmonary disease): Qualifiers: COPD type: unspecified COPD Qualified Code(s): J44.9 - Chronic obstructive pulmonary disease, unspecified Code(s): J44.9 - Chronic obstructive pulmonary disease, unspecified Status: Chronic (7) Gastro-esophageal reflux disease without esophagitis: Code(s): K21.9 - Gastro-esophageal reflux disease without esophagitis Status: Acute (8) Fibromyalgia: Code(s): M79.7 - Fibromyalgia Status: Chronic (9) HTN (hypertension): Qualifiers: Hypertension type: unspecified Qualified Code(s): I10 - Essential (primary) hypertension Code(s): I10 - Essential (primary) hypertension Status: Acute Additional Plan Status post ventral hernia repair continue postoperative care as ordered Fibromyalgia resume home medication Hypertension GERD Irritable bowel syndrome Anxiety depression Chronic 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 Chronic opiate use Obstructive sleep apnea on CPAP severe with AHI 55.4 follow up as an outpatient basis monitor oxygen level overnight needs follow-up as an outpatient basis for treatment of TAIWO Thanks for the consult. Will follow the patient while inpatient HPI Data of Consult Consult date: 01/16/22 Requesting Physician: Gabriel Brown MD Primary Care Provider: Demetrio Morgan MD Consult Narrative Narrative: Barbara Stewart is a 46 year old female who presented today for large wide-mouth ventral hernia repair associated with umbilical hernia. Which was done on 01/16/22. She is currently postop and remains on 2 L oxygen via nasal cannula. Medical team consulted for medical management postoperatively. She takes narcotics chronically for fibromyalgia ANNIE also has history of obstructive sleep apnea but not on CPAP. Recent sleep study reported to have AHI in 50s. She is being admitted to the hospital for observation postoperatively. She denies any chest pain or shortness of breath. Denies any nausea vomiting abdominal pain. She reports abdomen is sore but feeling okay. Review of Systems Review of Systems: - CONSTITUTIONAL: Denies weight loss, fever and chills. - HEENT: Denies changes in vision and hearing - RESPIRATORY: Denies SOB and cough. - CV: Denies palpitations and CP. - GI: Denies abdominal pain, nausea, vomiting and diarrhea. - : Denies dysuria and urinary frequency. - MSK: Denies myalgia and joint pain. - SKIN: Denies rash and pruritus. - NEUROLOGICAL: Denies headache and syncope. - PSYCHIATRIC: Denies recent changes in mood. Denies anxiety and depression. All systems reviewed & are unremarkable except as noted in HPI and below Constitutional: Constitutional: Reports fatigue and Reports weakness Neurologic: Reports weakness Endocrine: Endocrine: Reports fatigue [facility] Past Medical History Medical History (Updated 01/16/22 @ 10:51 by Kun Weldon MD) Arthritis of carpometacarpal (CMC) joint of right thumb BMI 36.0-36.9,adult Chronic use of opiate drug for therapeutic purpose COPD (chronic obstructive pulmonary disease) Depression Fibromyalgia Gastro-esophageal reflux disease without esophagitis Generalized anxiety disorder GERD (gastroesophageal
[2022-01-16] MEDS: SENNA/DOCUSATE SODIUM TABLET 2 TAB PO (20:21)
[2022-01-16] MEDS: DIVALPROEX SODIUM DR 250 MG TABEC 500 MG PO (20:21)
[2022-01-16] MEDS: METOPROLOL SUCCINATE EXT REL 50 MG TABCR PO (20:22)
[2022-01-16] MEDS: MORPHINE SULFATE (*CRX) 4 MG/ML INJ 5 MG IV PUSH (20:24)
[2022-01-16] MEDS: oxyCODONE HCL (*CRX) 5 MG TAB IR PO (23:34)
[2022-01-17] VITALS (14 sets, daily range): BP systolic 111–119; BP diastolic 55–78; PULSE 50–82; RESP 16–20; TEMP 36.3–36.7; O2SAT 93–98
[2022-01-17] MEDS: MORPHINE SULFATE (*CRX) 4 MG/ML INJ 5 MG IV PUSH ×3 (02:34→20:34)
[2022-01-17] MEDS: LACTATED RINGERS 1,000 ML 80 ML IV CONT (05:06)
[2022-01-17 05:07] LABS: Hematocrit 41.7 % (37.0-47.0); Hemoglobin 13.2 g/dL (12.0-15.0); Mean Corpuscular HGB Conc 31.7 g/dl (32-36); Mean Corpuscular Volume 91.6 fl (80-100); Mean Platelet Volume 10.6 fl (7.4-10.4); Platelet Count Result 285 k/mm3 (150-375); Red Blood Count 4.55 M/mm3 (4.2-5.4); White Blood Count 16.3 K/mm3 (4.5-10.0)
[2022-01-17 05:30] LABS: Anion Gap 7 mmol/L (8-16); Blood Urea Nitrogen 7 mg/dL (7-17); Calcium 8.1 mg/dL (8.4-10.2); Carbon Dioxide 27 mmol/L (22-30); Chloride 100 mmol/L (98-107); Estimated CRCL calculation 99 ml/min; Estimated Glomerular Filt Rate > 60; Glucose 108 mg/dL (65-110); Potassium 4.8 mmol/L (3.4-5.0); Sodium 134 mmol/L (137-145)
[2022-01-17] MEDS: METOPROLOL SUCCINATE EXT REL 50 MG TABCR PO ×2 (08:48→20:28)
[2022-01-17] MEDS: ATORVASTATIN 40 MG TABLET PO (08:48)
[2022-01-17] MEDS: VENLAFAXINE HCL XR 75 MG CAP.ER.24H 150 MG PO (08:48)
[2022-01-17] MEDS: ENOXAPARIN 40 MG/0.4 ML SYRINGE SUB-Q (08:49)
[2022-01-17] MEDS: buPROPion HCL XL (24 HR) 150 MG TABCR 300 MG PO (08:49)
[2022-01-17] MEDS: estradioL 1 MG TABLET PO (08:49)
[2022-01-17] MEDS: PANTOPRAZOLE 40 MG TABLET PO (08:49)
[2022-01-17] MEDS: polyethylene glycoL 3350 17 GM POWD.PACK PO (08:49)
[2022-01-17] MEDS: oxyCODONE/ACETAMINOPHEN (*CRX) 5-325 MG TABLET 1 TABLET PO ×2 (08:58→17:42)
[2022-01-17] MEDS: oxyCODONE HCL (*CRX) 5 MG TAB IR PO ×2 (08:58→17:43)
[2022-01-17] MEDS: PREGABALIN (*CRX) 75 MG CAPSULE 150 MG PO ×2 (09:09→17:42)
[2022-01-17] MEDS: MORPHINE SULFATE (*CRX) 4 MG/ML INJ 3 MG IV PUSH ×2 (11:00→13:32)
--- NOTE | 2022-01-17 16:47 | PM.IMPN ---
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 Status: Chronic (3) Mixed hyperlipidemia: Code(s): E78.2 - Mixed hyperlipidemia Status: Acute (4) Generalized anxiety disorder: Code(s): F41.1 - Generalized anxiety disorder Status: Acute (5) Obstructive sleep apnea (adult) (pediatric): Code(s): G47.33 - Obstructive sleep apnea (adult) (pediatric) Status: Chronic (6) COPD (chronic obstructive pulmonary disease): Qualifiers: COPD type: unspecified COPD Qualified Code(s): J44.9 - Chronic obstructive pulmonary disease, unspecified Code(s): J44.9 - Chronic obstructive pulmonary disease, unspecified Status: Chronic (7) Gastro-esophageal reflux disease without esophagitis: Code(s): K21.9 - Gastro-esophageal reflux disease without esophagitis Status: Acute (8) Fibromyalgia: Code(s): M79.7 - Fibromyalgia Status: Chronic (9) HTN (hypertension): Qualifiers: Hypertension type: unspecified Qualified Code(s): I10 - Essential (primary) hypertension Code(s): I10 - Essential (primary) hypertension Status: Acute Additional Plan Status post ventral hernia repair continue postoperative care as ordered Fibromyalgia resume home medication Hypertension stable continue home medication as ordered GERD Irritable bowel syndrome Anxiety depression continue medication Chronic 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 Chronic opiate use Obstructive sleep apnea on CPAP severe with AHI 55.4 follow up as an outpatient basis monitor oxygen level overnight needs follow-up as an outpatient basis for treatment of TAIWO. She is already scheduled to get a sleep study done as an outpatient basis Subjective Date/time seen: 01/17/22 16:47 Interval history: 01/17/2022 no overnight events. No fever chills. No nausea vomiting. Abdomen is sore however improving. Has not had any bowel movement yet. Review of Systems Review of Systems: All systems reviewed & are unremarkable except as noted in HPI and below Exam Narrative: GENERAL: The patient is well developed, not in acute distress HEENT: Nonicteric sclerae, PERRLA, EOMI. Oropharynx clear. Moist mucous membranes. Conjunctivae appear well perfused. CHEST: Chest wall is nontender. HEART: Regular rate and rhythm without murmur, rubs, or gallops LUNGS: Clear to auscultation bilaterally. no respiratory distress ABDOMEN: Soft, positive bowel sounds, non-tender, surgical incision scars noted no organomegaly. SKIN: No rash, no excessive bruising, petechiae, or purpura. NEUROLOGIC: Cranial nerves II-XII intact, alert and oriented x 3, no gross motor deficits EXTREMITIES: no edema, cyanosis or clubbing Objective Data Vital Signs Vital Signs: Vital Signs - 24 hr 01/16/22 18:00 01/16/22 18:32 01/16/22 20:00 Temperature 97.5 F L Pulse Rate 56 L 72 Respiratory Rate 18 Blood Pressure 111/55 L Pulse Oximetry 97 98 01/16/22 20:22 01/16/22 22:00 01/16/22 23:37 Temperature 97.4 F L Pulse Rate 60 57 L 54 L Respiratory Rate 18 Blood Pressure 121/70 Pulse Oximetry 97 01/17/22 00:00 01/17/22 02:00 01/17/22 04:00 Temperature 98.1 F Pulse Rate 64 53 L 50 L Respiratory Rate 18 Blood Pressure 111/68 Pulse Oximetry 98 98 01/17/22 06:00 01/17/22 08:00 01/17/22 08:48 Temperature 97.9 F Pulse Rate 50 L 55 L 56 L Respiratory Rate 20 Blood Pressure 113/55 L Pulse Oximetry 93 01/17/22 10:00 01/17/22 11:45 01/17/22 12:00 Temperature 97.4 F L Pulse Rate 57 L 57 L 61 Respiratory Rate 16 Blood Pressure 116/68 Pulse Oximetry 95 94 01/17/22 14:00 01/17/22 16:00 Temperat
--- NOTE | 2022-01-17 17:39 | PM.PNGS ---
Progress Note: A&P Assessment and Plan (1) Ventral hernia without obstruction or gangrene: Code(s): K43.9 - Ventral hernia without obstruction or gangrene Status: Chronic Assessment and Plan: Laparoscopic repair 01/16/2022. Repair intact. Recovering appropriately. (2) S/P repair of ventral hernia: Code(s): Z98.890 - Other specified postprocedural states; Z87.19 - Personal history of other diseases of the digestive system Status: Acute Assessment and Plan: Having a lot of pain at abdominal wall, site of repair. This is pretty much expected. Her pain medication is working but she is requiring it frequently. Continue inpatient care. (3) Obstructive sleep apnea (adult) (pediatric): Code(s): G47.33 - Obstructive sleep apnea (adult) (pediatric) Status: Chronic Assessment and Plan: Recovered from anesthesia and no apneic episodes. Will transfer from IMU to regular surgical floor. DC telemetry and DC continuous pulse ox monitoring. Appreciate hospitalist consultation. (4) Tobacco abuse: Code(s): Z72.0 - Tobacco use Status: Chronic (5) Chronic use of opiate drug for therapeutic purpose: Code(s): Z79.891 - detention (current) use of opiate analgesic Status: Chronic (6) COPD (chronic obstructive pulmonary disease): Qualifiers: COPD type: unspecified COPD Qualified Code(s): J44.9 - Chronic obstructive pulmonary disease, unspecified Code(s): J44.9 - Chronic obstructive pulmonary disease, unspecified Status: Chronic Subjective Subjective Date/Time Seen: 01/17/22 17:39 Post Op day: 1 Patient reports: still having pain (Having lot of pain), tolerating a regular diet (Low-fiber diet), flatus, no bowel movement and afebrile Exam Const: General: comfortable and no acute distress; No confusion Orientation/consciousness: patient oriented x3 and No confusion GI: Inspection: non-distended, incision (Dry and healing well) and obesity GI Palp: Yes Soft to palpation, Yes Tenderness to palpation present (GI) (Very tender at hernia repair site and transfascial suture sites), No Guarding due to palpation present (GI), No Hernia present, No Palpable mass present and No Rebound tenderness present Auscultation: normal bowel sounds Neuro: General: patient oriented x3, no focal motor deficits and No confusion Extrem: General: no calf tenderness and no edema Psych: Affect: normal affect Insight: Good insight present (Psych) Judgement: Good judgement present (Psych) Objective Data Vital Signs Vital Signs: Vital Signs - 24 hr 01/16/22 18:00 01/16/22 18:32 01/16/22 20:00 Temperature 36.4 C L Pulse Rate 56 L 72 Respiratory Rate 18 Blood Pressure 111/55 L Pulse Oximetry 97 98 01/16/22 20:22 01/16/22 22:00 01/16/22 23:37 Temperature 36.3 C L Pulse Rate 60 57 L 54 L Respiratory Rate 18 Blood Pressure 121/70 Pulse Oximetry 97 01/17/22 00:00 01/17/22 02:00 01/17/22 04:00 Temperature 36.7 C Pulse Rate 64 53 L 50 L Respiratory Rate 18 Blood Pressure 111/68 Pulse Oximetry 98 98 01/17/22 06:00 01/17/22 08:00 01/17/22 08:48 Temperature 36.6 C Pulse Rate 50 L 55 L 56 L Respiratory Rate 20 Blood Pressure 113/55 L Pulse Oximetry 93 01/17/22 10:00 01/17/22 11:45 01/17/22 12:00 Temperature 36.3 C L Pulse Rate 57 L 57 L 61 Respiratory Rate 16 Blood Pressure 116/68 Pulse Oximetry 95 94 01/17/22 14:00 01/17/22 16:00 Temperature 36.3 C L Pulse Rate 63 58 L Respiratory Rate 20 Blood Pressure 119/60 Pulse Oximetry 94 Intake/Output Intake/Output: Intake & Output 01/14/22 01/15/22 01/16/22 01/17/22 23:59 23:59 23:59 23:59 Intake Total 690 2440 Output Total 400 1750 Balance 290 690 Meds/Results Medications: Active Medications Generic Name Dose Route Start Last Admin Trade Name Freq PRN Reason Stop Dose Admin Acetaminophen 500 mg 01/16/22 16:33
--- NOTE | 2022-01-17 18:46 | PC.NURSE ---
This patient, Barbara Stewart, was transferred to [facility] on 01/17/22 at 1846. Personal belongings sent with patient. Report given to Miriam CRAWFORD. Appropriate documentation sent with patient.
--- NOTE | 2022-01-17 19:03 | PC.NURSE ---
This patient, Barbara Stewart, was transferred from IMU Room 213-01 from nurse Fidel, currently in [address] 3 med surg. Patient/family oriented to hospital policies and general routines including ID bracelet, bed and alarms, visiting hours, pain management, procedures, bathroom and other care routines, personal items, smoking policy, room service/diet, and visiting hours. Information on how to activate the Rapid Response Team has been discussed. Patient/Family are encouraged to report perceived risks to care and to ask questions if they do not understand what they are told or what they should do.
[2022-01-17] MEDS: DIVALPROEX SODIUM DR 250 MG TABEC 500 MG PO (20:28)
[2022-01-17] MEDS: SENNA/DOCUSATE SODIUM TABLET 2 TAB PO (20:28)
[2022-01-18] MEDS: oxyCODONE/ACETAMINOPHEN (*CRX) 5-325 MG TABLET 3 TABLET PO ×2 (03:30→20:34)
[2022-01-18 05:42] VITALS: BP 106/71; PULSE 65; RESP 16; TEMP 36.1; O2SAT 98
[2022-01-18 06:25] LABS: Basophils Percent Auto 0.1 % (0.2-1.2); Eosinophils Absolute Auto 0.6 K/mm3 (0-0.3); Eosinophils Percent Auto 3.5 % (0-4.4); Hematocrit 39.6 % (37.0-47.0); Hemoglobin 12.8 g/dL (12.0-15.0); Immature Granulocyte Absolute 0.06 K/mm3 (0.00-0.031); Immature Granulocyte Percent A 0.3 % (0-0.5); Lymphocytes Absolute Auto 4.15 K/mm3 (0.9-3.2); Lymphocytes Percent Auto 23.9 % (18.3-44.2); Mean Corpuscular HGB Conc 32.3 g/dl (32-36); Mean Corpuscular Hemoglobin 29.4 pg (26-34); Mean Platelet Volume 10.8 fl (7.4-10.4); Monocytes Absolute Auto 1.4 K/mm3 (0.1-0.6); Monocytes Percent Auto 7.8 % (2.6-8.5); Neutrophils Absolute Auto 11.2 K/mm3 (1.3-6.7); Neutrophils Percent Auto 64.4 % (45.5-73.1); Platelet Count Result 264 k/mm3 (150-375); Red Blood Count 4.35 M/mm3 (4.2-5.4); Red Cell Distribution Width 13.2 % (11.5-14.5); White Blood Count 17.3 K/mm3 (4.5-10.0)
[2022-01-18 06:43] LABS: Alanine Aminotransferase 15 U/L (6-35); Albumin Level 3.5 g/dL (3.5-5.1); Alkaline Phosphatase 78 U/L (38-126); Anion Gap 5 mmol/L (8-16); Aspartate Amino Transferase 23 U/L (14-36); Bilirubin,Total 0.4 mg/dL (0.2-1.3); Blood Urea Nitrogen 11 mg/dL (7-17); Calcium 7.8 mg/dL (8.4-10.2); Carbon Dioxide 31 mmol/L (22-30); Chloride 98 mmol/L (98-107); Estimated CRCL calculation 77 ml/min; Estimated Glomerular Filt Rate > 60; Glucose 104 mg/dL (65-110); Potassium 4.3 mmol/L (3.4-5.0); Sodium 134 mmol/L (137-145)
[2022-01-18 08:00] VITALS: PULSE 70; RESP 16; O2SAT 98
[2022-01-18] MEDS: polyethylene glycoL 3350 17 GM POWD.PACK PO (08:02)
[2022-01-18] MEDS: buPROPion HCL XL (24 HR) 150 MG TABCR 300 MG PO (08:02)
[2022-01-18] MEDS: PREGABALIN (*CRX) 75 MG CAPSULE 150 MG PO ×2 (08:02→16:19)
[2022-01-18] MEDS: PANTOPRAZOLE 40 MG TABLET PO (08:02)
[2022-01-18 08:03] VITALS: PULSE 70
[2022-01-18] MEDS: VENLAFAXINE HCL XR 75 MG CAP.ER.24H 150 MG PO (08:03)
[2022-01-18] MEDS: METOPROLOL SUCCINATE EXT REL 50 MG TABCR PO ×2 (08:03→20:20)
[2022-01-18] MEDS: ENOXAPARIN 40 MG/0.4 ML SYRINGE SUB-Q (08:03)
[2022-01-18] MEDS: estradioL 1 MG TABLET PO (08:03)
[2022-01-18] MEDS: ATORVASTATIN 40 MG TABLET PO (08:03)
[2022-01-18] MEDS: oxyCODONE/ACETAMINOPHEN (*CRX) 5-325 MG TABLET 1 TABLET PO ×2 (09:15→15:15)
[2022-01-18] MEDS: oxyCODONE HCL (*CRX) 5 MG TAB IR PO ×2 (09:16→15:15)
--- NOTE | 2022-01-18 10:36 | PM.PNGS ---
Progress Note: A&P Assessment and Plan (1) S/P repair of ventral hernia: Code(s): Z98.890 - Other specified postprocedural states; Z87.19 - Personal history of other diseases of the digestive system Status: Acute Assessment and Plan: better, encourage OOB/IS, await BM, follow WBC - no s/s active infection Subjective Subjective Date/Time Seen: 01/18/22 10:36 feels better today, +flatus but no BM yet, ambulating much better Review of Systems Review of Systems: All systems reviewed & are unremarkable except as noted in HPI and below Exam Const: General: cooperative, comfortable and no acute distress Resp: Auscultation: clear to auscultation bilaterally Cardio: Rate: regular rate Rhythm: regular rhythm GI: Inspection: normal to inspection, distended and incision GI Palp: Yes Soft to palpation, Yes Tenderness to palpation present (GI) and No Guarding due to palpation present (GI) Objective Data Vital Signs Vital Signs: Vital Signs - 24 hr 01/17/22 11:45 01/17/22 12:00 01/17/22 14:00 Temperature 36.3 C L Pulse Rate 57 L 61 63 Respiratory Rate 16 Blood Pressure 116/68 Pulse Oximetry 95 94 01/17/22 16:00 01/17/22 20:00 01/17/22 20:28 Temperature 36.3 C L Pulse Rate 58 L 67 82 Respiratory Rate 20 16 Blood Pressure 119/60 Pulse Oximetry 94 98 01/17/22 22:00 01/18/22 05:42 01/18/22 08:00 Temperature 36.4 C L 36.1 C L Pulse Rate 67 65 70 Respiratory Rate 16 16 16 Blood Pressure 117/78 106/71 Pulse Oximetry 98 98 98 01/18/22 08:03 Temperature Pulse Rate 70 Respiratory Rate Blood Pressure Pulse Oximetry Intake/Output Intake/Output: Intake & Output 01/15/22 01/16/22 01/17/22 01/18/22 23:59 23:59 23:59 23:59 Intake Total 690 2920 750 Output Total 400 1750 1000 Balance 290 1170 -250 Meds/Results Medications: Active Medications Generic Name Dose Route Start Last Admin Trade Name Freq PRN Reason Stop Dose Admin Acetaminophen 500 mg 01/16/22 16:33 Acetaminophen 500 Mg Tablet PO Q6H PRN Mild Pain (1-3) or Fever Atorvastatin Calcium 40 mg 01/17/22 09:00 01/18/22 08:03 Atorvastatin 40 Mg Tablet PO 40 mg DAILY MARIANA Administration Bupropion HCl 300 mg 01/17/22 09:00 01/18/22 08:02 Bupropion Hcl Xl (24 Hr) 150 Mg Tabcr PO 300 mg QAM MARIANA Administration Diphenhydramine HCl 25 mg 01/16/22 16:33 Diphenhydramine Hcl Inj 50 Mg/Ml Vial IV PUSH Q6H PRN Itching Divalproex Sodium 500 mg 01/16/22 21:00 01/17/22 20:[address] 250 Mg Tabec PO 500 mg HS MARIANA Administration Enoxaparin Sodium 40 mg 01/17/22 09:00 01/18/22 08:03 Enoxaparin 40 Mg/0.4 Ml Syringe SUB-Q 40 mg DAILY MARIANA Administration Estradiol 1 mg 01/17/22 09:00 01/18/22 08:03 Estradiol 1 Mg Tablet PO 1 mg DAILY MARIANA Administration Metoprolol Succinate 50 mg 01/16/22 21:00 01/18/22 08:03 Metoprolol Succinate Ext Rel 50 Mg Tabcr PO 50 mg Q12HR MARIANA Administration Miscellaneous Information 0 each 01/16/22 00:01 Sulindac Is Nonformulary - We Carry Ibuprofen Or Diclofenac. Please Clarify. XX 02/15/22 00:00 CLARIFY MARIANA Morphine Sulfate 3 mg 01/16/22 16:33 01/17/22 13:32 Morphine Sulfate (*Crx) 4 Mg/Ml Inj IV PUSH 3 mg Q2H PRN Administration Pain Rated 4-6 Morphine Sulfate 5 mg 01/16/22 16:33 01/17/22 20:34 Morphine Sulfate (*Crx) 4 Mg/Ml Inj IV PUSH 5 mg Q2H PRN Administration Pain Rated 7-10 Naloxone HCl 0.1 mg 01/16/22 16:33 Naloxone Hcl 0.4 Mg/Ml Vial IV PUSH Q2M PRN Opiate Reversal Non-Formulary Medication 200 mg 01/16/22 17:00 Sulindac PO 02/15/22 16:59 BID MARIANA Ondansetron HCl 4 mg 01/16/22 16:33 Ondansetron Inj 4 Mg/2 Ml Vial IV PUSH Q4H PRN Nausea And Vomiting Oxycodone HCl 5 mg 01/16/22 16:33 01/18/22 09:16 Oxycodone Hcl (*Crx) 5 Mg Tab Ir PO 02/15/22 16:32 5 mg Q6H PRN Administration
--- NOTE | 2022-01-18 12:02 | PM.IMPN ---
Progress Note: A&P Assessment and Plan (1) S/P repair of ventral hernia: Code(s): Z98.890 - Other specified postprocedural states; Z87.19 - Personal history of other diseases of the digestive system Status: Acute (2) Chronic use of opiate drug for therapeutic purpose: Code(s): Z79.891 - residential (current) use of opiate analgesic Status: Chronic (3) Mixed hyperlipidemia: Code(s): E78.2 - Mixed hyperlipidemia Status: Acute (4) Generalized anxiety disorder: Code(s): F41.1 - Generalized anxiety disorder Status: Acute (5) Obstructive sleep apnea (adult) (pediatric): Code(s): G47.33 - Obstructive sleep apnea (adult) (pediatric) Status: Chronic (6) COPD (chronic obstructive pulmonary disease): Qualifiers: COPD type: unspecified COPD Qualified Code(s): J44.9 - Chronic obstructive pulmonary disease, unspecified Code(s): J44.9 - Chronic obstructive pulmonary disease, unspecified Status: Chronic (7) Gastro-esophageal reflux disease without esophagitis: Code(s): K21.9 - Gastro-esophageal reflux disease without esophagitis Status: Acute (8) Fibromyalgia: Code(s): M79.7 - Fibromyalgia Status: Chronic (9) HTN (hypertension): Qualifiers: Hypertension type: unspecified Qualified Code(s): I10 - Essential (primary) hypertension Code(s): I10 - Essential (primary) hypertension Status: Acute Additional Plan Status post ventral hernia repair continue postoperative care as ordered Fibromyalgia resume home medication Hypertension stable continue home medication as ordered GERD Irritable bowel syndrome with ongoing constipation. Increase senna S2 twice a day continue MiraLax Anxiety depression continue medication Chronic 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 Chronic opiate use Obstructive sleep apnea on CPAP severe with AHI 55.4 follow up as an outpatient basis monitor oxygen level overnight needs follow-up as an outpatient basis for treatment of TAIWO. She is already scheduled to get a sleep study done as an outpatient basis Subjective Date/time seen: 01/18/22 12:02 Interval history: 01/17/2022 no overnight events. No fever chills. No nausea vomiting. Abdomen is sore however improving. Has not had any bowel movement yet. 01/18/2022 no overnight events. Has not had any bowel movement. Denies any Nausea and vomiting no fever chills. Pain is controlled Review of Systems Review of Systems: All systems reviewed & are unremarkable except as noted in HPI and below Exam Narrative: GENERAL: The patient is well developed, not in acute distress HEENT: Nonicteric sclerae, PERRLA, EOMI. Oropharynx clear. Moist mucous membranes. Conjunctivae appear well perfused. CHEST: Chest wall is nontender. HEART: Regular rate and rhythm without murmur, rubs, or gallops LUNGS: Clear to auscultation bilaterally. no respiratory distress ABDOMEN: Soft, hypoactive bowel sounds, non-tender, surgical incision scars noted no organomegaly. SKIN: No rash, no excessive bruising, petechiae, or purpura. NEUROLOGIC: Cranial nerves II-XII intact, alert and oriented x 3, no gross motor deficits EXTREMITIES: no edema, cyanosis or clubbing Objective Data Vital Signs Vital Signs: Vital Signs - 24 hr 01/17/22 14:00 01/17/22 16:00 01/17/22 20:00 Temperature 97.4 F L Pulse Rate 63 58 L 67 Respiratory Rate 20 16 Blood Pressure 119/60 Pulse Oximetry 94 98 01/17/22 20:28 01/17/22 22:00 01/18/22 05:42 Temperature 97.5 F L 97.0 F L Pulse Rate 82 67 65 Respiratory Rate 16 16 Blood Pressure 117/78 106/71 Pulse Oximetry 98 98 01/18/22 08:00 01/18/22 08:03 Temperature Pulse Rate 70 70 Respiratory Rate 16 Blood Pressure Pulse Oximetry 98 Intake/Output Intake/Output: Intake & Output 01/15/22 01/16/22 01/17/22 01/18/22 23:59 23:59 23:59 23:59 Intake Total 690 2920 990 Output Total 400 1750 1000 Balance 290 1170 -10
[2022-01-18 14:00] VITALS: BP 112/57; PULSE 67; RESP 20; TEMP 37; O2SAT 97
[2022-01-18] MEDS: SENNA/DOCUSATE SODIUM TABLET 2 TAB PO (16:18)
[2022-01-18] MEDS: DIVALPROEX SODIUM DR 250 MG TABEC 500 MG PO (20:19)
[2022-01-18 20:30] VITALS: PULSE 66; RESP 16; O2SAT 97
[2022-01-18 22:00] VITALS: BP 108/61; PULSE 66; RESP 16; TEMP 36.3; O2SAT 97
[2022-01-19 05:47] VITALS: BP 111/60; PULSE 61; RESP 16; TEMP 36.1; O2SAT 100
[2022-01-19] MEDS: oxyCODONE HCL (*CRX) 5 MG TAB IR PO (08:23)
[2022-01-19] MEDS: polyethylene glycoL 3350 17 GM POWD.PACK PO (08:23)
[2022-01-19] MEDS: oxyCODONE/ACETAMINOPHEN (*CRX) 5-325 MG TABLET 1 TABLET PO (08:23)
[2022-01-19] MEDS: ENOXAPARIN 40 MG/0.4 ML SYRINGE SUB-Q (08:23)
[2022-01-19 08:24] VITALS: PULSE 78
[2022-01-19] MEDS: PANTOPRAZOLE 40 MG TABLET PO (08:24)
[2022-01-19] MEDS: SENNA/DOCUSATE SODIUM TABLET 2 TAB PO (08:24)
[2022-01-19] MEDS: ATORVASTATIN 40 MG TABLET PO (08:24)
[2022-01-19] MEDS: estradioL 1 MG TABLET PO (08:24)
[2022-01-19] MEDS: PREGABALIN (*CRX) 75 MG CAPSULE 150 MG PO (08:24)
[2022-01-19] MEDS: buPROPion HCL XL (24 HR) 150 MG TABCR 300 MG PO (08:24)
[2022-01-19] MEDS: METOPROLOL SUCCINATE EXT REL 50 MG TABCR PO (08:24)
[2022-01-19] MEDS: VENLAFAXINE HCL XR 75 MG CAP.ER.24H 150 MG PO (08:24)
--- NOTE | 2022-01-19 09:22 | PM.DS ---
DS: Admitting Diagnosis Discharge Date 01/19/2022 Admitting Diagnosis ventral hernia DS: Discharge Diagnosis Discharge Diagnosis (1) Ventral hernia without obstruction or gangrene: Code(s): K43.9 - Ventral hernia without obstruction or gangrene Status: Chronic Assessment and Plan: status post repair, routine postoperative care including activity restriction, follow-up 2 weeks (2) Fibromyalgia: Code(s): M79.7 - Fibromyalgia Status: Chronic Assessment and Plan: stable continue current management as per primary (3) BMI 36.0-36.9,adult: Code(s): Z68.36 - Body mass index [BMI] 36.0-36.9, adult Status: Chronic Assessment and Plan: lifestyle and dietary modification (4) Tobacco abuse: Code(s): Z72.0 - Tobacco use Status: Chronic Assessment and Plan: discussed cessation DS: Summary Hospital Course Reason for hospitalization: ventral hernia Hospital Course: The patient is a 46 female with multiple medical issues including fibromyalgia, that presented to for repair of ventral and umbilical hernia. The patient underwent repair 01/16/2022, please see full operative report for details of that procedure. Postoperatively, the patient did well and was transferred to the surgical floor. Over the next few days, the patient had a postoperative ileus that slowly resolved with a bowel regimen. The patient also had significant pain initially, however that progressively improved over the course of her stay. At the time of her discharge, the patient has been up and moving around without issue. Her pain is well controlled with p.o. Percocet. She has been able to tolerate a diet without issue at this point. He will be sent home with continued routine postoperative care including light activity restrictions. She will follow up with Dr. Brown in 2 weeks. Status at Discharge Functional status at discharge: independent ambulation Overall status at discharge: patient is progressing back to baseline Time Spent with Patient Time attestation: Total time spent providing and/or coordinating discharge services: Time spent: Less than 30 minutes Exam Const: General: cooperative, comfortable and no acute distress Resp: Auscultation: clear to auscultation bilaterally Cardio: Rate: regular rate Rhythm: regular rhythm GI: Inspection: normal to inspection, distended and incision GI Palp: Yes Soft to palpation and Yes Tenderness to palpation present (GI) Discharge Plan Discharge Attending physician on discharge: Gabriel Brown Consulting providers: Claudio Ojeda Discharging Clinician: Alida Butcher Anticipated Discharge Date/Time: 01/19/22 09:20 Patient Disposition: Home, Self-Care Activity: other - see discharge instructions Diet: other - see discharge instructions Wound Care Instructions: other - see discharge instructions Discharge Instructions: Ambulate 3-4 x per day and as tolerated. No lifting over 15-20lbs. May bathe or shower. Stairs are OK. May drive a car in 3 days. Call for temp over 100.5, severe abdominal pain, vomiting, wound bleeding, other significant change in condition. See Dr. Brown in 2 weeks in his office. Regular diet post discharge Stand Alone Forms: General Discharge Instructions Follow-up/Referrals: Gabriel Brown MD [Physician] - 2 Weeks Discharge Medications: New polyethylene glycol 3350 [Miralax] 17 gram Powder In Packet 17 g PO QAM Qty: 10 RF: 0 sennosides-docusate sodium [Senokot-S] 8.6-50 mg Tablet 2 tab PO HS Qty: 10 RF: 0 oxycodone-acetaminophen [Percocet] 5-325 mg tablet 1 - 2 tablet PO Q6H PRN (Reason: pain) Qty: 25 RF: 0 Continued atorvastatin 20 mg tablet 40 mg PO DAILY RF: 0 metoprolol succinate 50 mg tablet extended release 24 hr 50 mg PO BID RF: 0 pregabalin 150 mg capsule 150 mg PO BID Qty: 180 RF: 1 bupropion HCl 300 mg tablet extended re
== END 2022-01-19 11:35 | disposition home or self-care (01) ==
LOC: ANHSURGERY 18:31 → ANHIMU 18:31 → ANH3MEDSUR 19:03
PROVIDERS: Internal Medicine; Admitting Provider Surgery; PCP Family Medicine Adolescent Medicine; Visit Provider Surgery
PROC: (CPT 49653; principal; 2022-01-16 12:00)
DX: K43.6 Other and unspecified ventral hernia with obstruction, without gangrene (principal); K42.0 Umbilical hernia with obstruction, without gangrene; G89.18 Other acute postprocedural pain; I10 Essential (primary) hypertension; K21.9 Gastro-esophageal reflux disease without esophagitis; K58.9 Irritable bowel syndrome, unspecified; E78.2 Mixed hyperlipidemia; F41.1 Generalized anxiety disorder; M79.7 Fibromyalgia; J44.9 Chronic obstructive pulmonary disease, unspecified; G47.33 Obstructive sleep apnea (adult) (pediatric); G89.4 Chronic pain syndrome; F32.9 Major depressive disorder, single episode, unspecified; F17.210 Nicotine dependence, cigarettes, uncomplicated; F17.290 Nicotine dependence, other tobacco product, uncomplicated; F12.90 Cannabis use, unspecified, uncomplicated; E66.9 Obesity, unspecified; Z68.36 Body mass index [BMI] 36.0-36.9, adult; Z79.891 Long term (current) use of opiate analgesic
CPT/HCPCS: 49653; 36415; 71046; 80048; 80053; 80164; 85025; 85027; 86850; 86900; 86901; 93005; A9270; C1781; G0378; J0690; J1100; J1170; J1650; J2250; J2270; J2405; J2704; J2710; J3010; J7120

== ENCOUNTER 2022-02-11 11:09 | Outpatient (CLI) | payer MEDICARE, SELFPAY ==
--- NOTE | ~2022-02-11 | CT_ITS ---
EXAMINATION: CT abdomen wo con DATE: 02/11/2022 11:26 INDICATION: Follow-up of hernia surgery January 16 TECHNIQUE: Computed tomography (CT) of the abdomen and pelvis was performed without intravenous contr ast. Automated exposure control and iterative reconstruction technique were employed. Exam dose: 638 .68 mGy-cm total exam DLP. COMPARISON: 02/16/2021 CT abdomen pelvis FINDINGS: The lung bases are clear. Normal heart size. No pericardial or pleural effusion. Status post cholecystectomy. No hepatic, splenic, pancreatic, right adrenal space-occupying mass lesi on. An approximately 10 x 18 mm left adrenal mass, likely an adenoma. No renal mass lesion or calcification or hydronephrosis. Mild atherosclerotic calcification and normal caliber of the abdominal aorta. No intraperitoneal or r etroperitoneal mass lesion or adenopathy or ascites. No bowel obstruction is evident. There is a fluid containing structure in the umbilical area measuring up to 4.8 cm transverse and 6 c m AP dimension. There is some surrounding fluid accumulation in the ventral abdominal wall and some fat stranding wit hin the anterior peritoneal cavity, which may be postoperative change, including seroma, hematoma, al though infection or abscess or not entirely excluded. Clinical correlation is advised. There is severe degenerative disc disease and grade 1 anterolisthesis at L4-5. Prominent degenerative change at the apophyseal joints at L4-5 and L5-S1. Diffuse idiopathic skeletal hyperostosis of the lower thoracic spine. IMPRESSION: 4.8 x 6 cm fluid containing sac in the umbilical area with mild adjacent to fluid collec tion. There is some fat stranding in the anterior peritoneal cavity in this region. The findings may be due to postoperative change. Infection is not excluded. Status post cholecystectomy Left adrenal probable adenoma Reviewed, dictated and finalized at Location A. Reviewed, dictated and finalized at location A. IMPRESSION: 4.8 x 6 cm fluid containing sac in the umbilical area with mild ad jacent to fluid collection. There is some fat stranding in the anterior periton eal cavity in this region. The findings may be due to postoperative change. Inf ection is not excluded. Status post cholecystectomy Left adrenal probable adenoma
== END 2022-02-11 11:10 ==
PROVIDERS: PCP Family Medicine Adolescent Medicine; Visit Provider Surgery
DX: K42.9 Umbilical hernia without obstruction or gangrene (principal); D35.02 Benign neoplasm of left adrenal gland
CPT/HCPCS: 74150

== ENCOUNTER 2023-07-27 12:28 | Outpatient (CLI) | payer MEDICARE, SELFPAY ==
--- NOTE | ~2023-07-27 | US_ITS ---
US pelvic limited 07/27/2023 13:06 Indication: Post void residual Procedure: High-resolution Limited pelvic ultrasound using transabdominal technique Comparison: No prior studies for comparison. Findings: Bladder wall is unremarkable. Prevoid volume to 79 cc. Postvoid volume is 25 cc. No extralu afbian pelvic masses or fluid collections. Impression: 1: Small post void residual measures 25 cc. Reviewed, dictated and finalized at location B. 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
== END 2023-07-27 12:29 | disposition home or self-care (01) ==
LOC: CHSIMG 12:31
PROVIDERS: PCP Family Medicine Adolescent Medicine; Visit Provider Nurse Practitioner Family
DX: N32.81 Overactive bladder (principal)
CPT/HCPCS: 76857

== ENCOUNTER 2023-08-11 12:48 | Outpatient (CLI) | payer MEDICARE, SELFPAY ==
--- NOTE | ~2023-08-11 | CT_ITS ---
EXAMINATION: CT abdomen wo/w con INDICATION: Left adrenal mass TECHNIQUE: Computed tomographic images of the abdomen were obtained prior to then following the admin istration of 100 cc of Omnipaque 350 intravenous contrast. The dose-length product (DLP) was 1954.96 mGy-cm. Automated exposure control and iterative reconstruction technique were employed. COMPARISON: 02/11/2022 FINDINGS: The lung bases are clear. The heart size is normal. The gallbladder is surgically absent. T here is mild enlargement of the common bile duct and central intrahepatic ducts which is likely due t o post cholecystectomy state. There is a 1.7 cm hemangioma in the right hepatic lobe. The spleen, brewster creas, and right adrenal gland are normal. There is a stable 1.7 cm mass of the left adrenal gland wh ich measures -3.8 Hounsfield units on the noncontrast phase, 52 Hounsfield units on the early postcon trast phase, and 13 Hounsfield units on the 15 minute delayed phase with absolute washout of 69.9% an d relative washout of 75%. The kidneys are unremarkable. There are no pathologically enlarged abdomin al lymph nodes. There is moderate lumbar spondylosis. There are no dilated loops of bowel. IMPRESSION: 1. Left adrenal mass, consistent with an adenoma. Reviewed, dictated and finalized at location B. 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
[2023-08-11 13:54] LABS: Estimated Glomerular Filt Rate > 60
== END 2023-08-11 12:49 ==
PROVIDERS: PCP Family Medicine Adolescent Medicine; Visit Provider Nurse Practitioner Family
DX: E27.8 Other specified disorders of adrenal gland (principal)
CPT/HCPCS: 74170; Q9967

== ENCOUNTER 2024-08-11 10:43 | Outpatient (CLI) | payer MEDICARE, SELFPAY ==
[2024-08-11] VITALS (8 sets, daily range): PULSE 62–86; O2SAT 92–97
--- NOTE | ~2024-08-11 | CT_ITS ---
CT Scan of the Chest without Contrast: Clinical Indication: Lung cancer screening, nicotine dependence Technique: Contiguous sections were acquired throughout the chest without intravenous contrast. Dose reduction technique was used on this scan by utilizing automated exposure control and iterative recon struction technique. The dose-length product (DLP) was 213.59 mGy-cm. Findings: There is no evidence of any significant mediastinal, hilar or axillary lymphadenopathy. The mediastin al soft tissues appear normal. There is no evidence of pleural or pericardial effusion. The lungs are clear. No pulmonary nodules or infiltrates are noted. Images through the upper abdomen reveal no abnormalities. Impression: Lung RADS 1: Negative. 12 month follow-up screening CT advised. Reviewed, dictated and finalized at location . CTOR APPOINTMENT Impression: Lung RADS 1: Negative. 12 month follow-up screening CT advised.
--- NOTE | 2024-08-11 12:04 | SIXMINWLK ---
Six Minute Walk Test PFT: Six Minute Walk Start: 08/11/24 11:43 Freq: Status: Active Protocol: RPE Activity Type Activity Date Activity User E-sign Co-sign Detail Recorded Client Recorded Date Recorded By Document 08/11/24 11:10 RES [id number] 08/11/24 12:00 RES Document 08/11/24 11:12 RES [id number] 08/11/24 12:00 RES Document 08/11/24 11:13 RES [id number] 08/11/24 12:00 RES Document 08/11/24 11:14 RES [id number] 08/11/24 12:04 RES Document 08/11/24 11:15 RES [id number] 08/11/24 12:04 RES Document 08/11/24 11:16 RES [id number] 08/11/24 12:04 RES Document 08/11/24 11:17 RES [id number] 08/11/24 12:04 RES Document 08/11/24 11:18 RES [id number] 08/11/24 12:04 RES 08/11/24 08/11/24 08/11/24 11:10 11:12 11:13 Six Minute Walk Gender F F F Age 50 50 50 Race White White White Test Phase Resting Exercise Exercise Oxygen Delivery Room Air Room Air Room Air Fraction of Inspired Oxygen (%) 21 21 21 Pulse Oximetry (90-100 %) 96 95 95 Pulse Rate (60-100 beats/min) 62 67 75 Activity Tolerance Good Good Good Rating of Perceived Dyspnea (PD) +1 Mild, +1 Mild, +1 Mild, Noticeable to Noticeable to Noticeable to the Participant the Participant the Participant but Not to an but Not to an but Not to an Observer Observer Observer Rate of Perceived Exertion (1) Very Light (2-3) Light (2-3) Light Activity Activity Activity Number of Complete Laps (1 Lap = 100 Feet) Total Distance Walked (Feet) Total Distance Walked (Meters) 08/11/24 08/11/24 08/11/24 11:14 11:15 11:16 Six Minute Walk Gender F F F Age 50 50 50 Race White White White Test Phase Exercise Exercise Exercise Oxygen Delivery Room Air Room Air Room Air Fraction of Inspired Oxygen (%) 21 21 21 Pulse Oximetry (90-100 %) 94 92 95 Pulse Rate (60-100 beats/min) 80 86 82 Activity Tolerance Good Good Good Rating of Perceived Dyspnea (PD) +1 Mild, +2 Mild, Some +2 Mild, Some Noticeable to Difficulty, Difficulty, the Participant Noticeable to Noticeable to but Not to an the Observer the Observer Observer Rate of Perceived Exertion (2-3) Light (2-3) Light (2-3) Light Activity Activity Activity Number of Complete Laps (1 Lap = 100 Feet) Total Distance Walked (Feet) Total Distance Walked (Meters) 08/11/24 08/11/24 11:17 11:18 Six Minute Walk Gender F F Age 50 50 Race White White Test Phase Exercise Resting Oxygen Delivery Room Air Room Air Fraction of Inspired Oxygen (%) 21 21 Pulse Oximetry (90-100 %) 94 97 Pulse Rate (60-100 beats/min) 78 75 Activity Tolerance Good Good Rating of Perceived Dyspnea (PD) +2 Mild, Some +2 Mild, Some Difficulty, Difficulty, Noticeable to Noticeable to the Observer the Observer Rate of Perceived Exertion (2-3) Light (2-3) Light Activity Activity Number of Complete Laps (1 Lap = 100 6 Feet) Total Distance Walked (Feet) 600 Total Distance Walked (Meters) 182.87
== END 2024-08-11 10:44 | disposition home or self-care (01) ==
LOC: CHSIMG 10:44
PROVIDERS: PCP Family Medicine Adolescent Medicine; Visit Provider Nurse Practitioner Family
DX: Z12.2 Encounter for screening for malignant neoplasm of respiratory organs (principal); Z87.891 Personal history of nicotine dependence
CPT/HCPCS: 71271; 94060; 94726; 94729

== ENCOUNTER 2024-09-24 19:43 | Outpatient (CLI) | payer MEDICARE, SELFPAY ==
--- OUTSIDE RECORDS SUMMARY | 2024-09-24 19:47 | XMS_ITS | Clinical Summary ---
Author Organization [facility] Address [address] [place] [address] Care Team Providers Care Senior Cost Estimator Name Role Phone Demetrio Morgan MD Primary Care Provider + Source Comments [facility],non-owned Affiliates and Associated Physician Practices is amultiple site organization consisting of ambulatory clinics and hospital sitesin [place], [place], [place] and [place]. This disclosure is being madepursuant to the Care Everywhere program and may not contain all information available regarding this patient. Last updated 18.[facility] Allergies Active Allergy Reactions Criticality Noted Date Comments Codeine Other Low 08/13/2017 SEVERE MIGRAINE Lidocaine Rash Medium 01/21/2018 Phenobarbital Other Low 08/13/2017 SEIZURES Quetiapine Anxiety Low 08/13/2017 JUMPY MUSCLES Medications * Be aware that medications may not be up to date on this document. Alwaysverify current medications with the patient. Medication Sig Dispensed Refills Start Date End Date Status divalproex DR (DEPAKOTE) 250 MG tablet Take 250 mg by mouth TID. 08/13/2017 Active oxyCODONE, immediate release, 10 MG tablet Take 10 mg by mouth. 08/13/2017 Active rOPINIRole (REQUIP) 1 MG tablet Take 1 mg by mouth BID. 08/13/2017 Active busPIRone (BUSPAR) 10 MG tablet Take 10 mg by mouth BID. 08/13/2017 Active DULoxetine (CYMBALTA) 60 MG capsule Take 60 mg by mouth DAILY. 08/13/2017 Active [facility] Products (OCTACOSANOL) 1000-5 MCG-UNIT Take by mouth BID. 08/13/2017 Active lisinopril (PRINIVIL; ZESTRIL) 20 MG tablet Take 20 mg by mouth DAILY. 08/13/2017 Active metoclopramide (REGLAN) 10 MG tablet Take 10 mg by mouth. 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,Restless legs syndrome,Other insomnia,Myalgia,Other fatigue Take 4 mg by mouth every 6 hours as needed for Nausea/Vomiting Active furosemide (LASIX) 40 MG tabletIndications: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,Restless legs syndrome,Other insomnia,Myalgia,Other fatigue 01/08/2018 Active LYRICA 150 MG capsuleIndications:Chr onic 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,Restless legs syndrome,Other insomnia,Myalgia,Other fatigue 01/11/2018 Active prochlorperazine (COMPAZINE) 10 MG tabletIndications: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,Restless legs syndrome,Other insomnia,Myalgia,Other fatigue 12/08/2017 Active tobramycin (TOBREX) 0.3 % ophthalmic solutionIndications:Ch ronic 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,Restless legs syndrome,Other insomnia,Myalgia,Other fatigue 10/22/2017 Active Active Problems Problem Noted Date Diagnosed Date Chronic 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 01/21/2018 Myalgia 08/13/2017 Restless legs syndrome 08/13/2017 Other fatigue 08/13/2017 Personal history of other di seases of the musculoskeletal system and connective tissue 08/13/2017 Pain in joint 08/13/2017 Low back pain 08/13/2017 Other chronic pain 08/13/2017 Family History Medical History Relation Name Comments Hypertension Father Arthritis - Osteo Mother Asthma Mother CAD (Coronary Artery Disease) Mother COPD - Chronic Obstructive Pulmonary Disease Mother Cancer - Other Mother Depression Mother Hypertension Mother Thyroid Disease Mother Relation Name Status Comments Father Mother Social History Tobacco Use Types Packs/Day Years Used Date Smoking Tobacco: Every Day Cigarettes Smokeless Tobacco: Never Alcohol Use Standard Drinks/Week Comments No 0 (1 standard drink = 0.6 oz pur e alcohol) Sex and Gender Information Value Date Recorded Sex Assigned at Not on file Gender Identity Not on file Sexual Orientation Not on file Last Filed Vital Signs Vital Sign Reading Time Taken Comments Blood Pressure 130/82 01/21/2018 3:12 PM CDT Pulse 84 01/21/2018 3:12 PM CDT Temperature 36.8 ??C (98.3 ??F) 01/21/2018 3:12 PM CD T Respiratory Rate - - Oxygen Saturation - - Inhaled Oxygen Concentration - - Weight 91.2 kg (201 lb) 01/21/2018 3:12 PM CDT Height 157.5 cm (5' 2 ) 01/21/2018 3:12 PM CDT Body Mass Index 36.76 01/21/2018 3:12 PM CDT Plan of Treatment Health Maintenance Due Date Last Done Comments COLOGUARD (AGES 45-75) - COL ON CA SCREENING 1974 COLON MONITORING 1974 COLONOSCOPY - COLON CA SCREENING 1974 CT COLONOGRAPHY - COLON CA SCREENING 1974 Colorectal Cancer Screening 1974 FIT - COLON CA SCREENING 1974 FLEX SIG - COLON CA SCREENING 1974 LIPID TESTING 1974 MAMMOGRAM 1974 PAP SMEAR 1974 HIV SCREENING 1989 DTAP/TDAP/TD VACCINES (1 - Tdap) 1993 HEPATITIS B VACCINE (1 of 3 - 19+ 3-dose series) 1993 PNEUMOCOCCAL VACCINE 50+ (1 of 2 - PCV) 1993 PNEUMOCOCCAL VACCINE (1 of 2 - PCV) 1993 SCREENING FOR DIABETES 08/13/2020 08/13/2017 ZOSTER VACCINE (1 of 2) 2024 COVID-19 VACCINE (1 - 2023-2 5 season) 2024 INFLUENZA VACCINE (#1) 2024 DEPRESSION SCREENING 08/31/2024 HEPATITIS C SCREENING Completed 08/13/2017 HIB VACCINE Aged Out No longer eligi ble based on patient's age to complete this topic HPV VACCINE Aged Out No longer eligi ble based on patient's age to complete this topic MENINGOCOCCAL (Group B) VACCINE Aged Out No longer eligible based on patient's age to complete this topic MENINGOCOCCAL VACCINE Aged Out No bala loren eligible based on patient's age to complete this topic Procedures Procedure Name Priority Date/Time Associated Diagnosis Comments COMPREHENSIVE METABOLIC PANEL Routine 08/13/2017 11:37 AM SOLAR SALES ASSESSOR HEPATITIS C ANTIBODY Routine 08/13/2017 11:37 AM SOLAR SALES ASSESSOR from Last 3 Months or Most Recently Relevant to Health Maintenance Results * (ABNORMAL) COMPREHENSIVE METABOLIC PANEL (08/13/2017 11:37 AM SOLAR SALES ASSESSOR) BUN 16 7 - 26 mg/dL [facility] Creatinine 0.7 0.6 - 1.2 mg/dL [facility] Sodium 140 136 - 145 mmol/L [facility] Potassium 4.1 3.5 - 4.5 mmol/L [facility] Chloride 106 98 - 107 mmol/L [facility] CO2 25 22 - 29 mmol/L [facility] Glucose 96 70 - 115 mg/dL [facility] Calcium 9.0 8.4 - 10.2 mg/dL [facility] Protein Total 7.1 6.0 - 8.3 g/dL [facility] Albumin 3.3(L) 3.4 - 5.0 g/dL [facility] Bilirubin Total 0.2 0.2 - 1.2 mg/dL [facility] Alkaline Phosphatase 85 40 - 150 Units/L [facility] ALT 15 0 - 55 Units/L [facility] AST 15 5 - 34 Units/L [facility] Anion Gap 13 8 - 18 [facility] BUN/Creatinine Ratio 23 7 - 23 [facility] Osmolality Calculated 291 270 - 300 mOsm/kg [facility] Albumin/Globulin Ratio 0.9(L) 1.1 - 2.3 [facility] eGFR >60 >60 mL/min/1.7 3 m2 [facility] Blood specimen (specimen) BLOOD SPECIMEN / Unknown 08/13/2017 11:37 AM SOLAR SALES ASSESSOR 08/13/2017 12:04 PM SOLAR SALES ASSESSOR Jennifer Nuñez MD LAB - CHEMISTR Y ORDERABLES [address] [phone] * HEPATITIS C ANTIBODY (08/13/2017 11:37 AM SOLAR SALES ASSESSOR) Hepatitis C Antibody Non-react anshul Non-reac tive [facility] Comment: Hepatitis C Antibody screen indicates no serologic evidence of past or current infection with Hepatitis C Virus. Patients with unexplained liver disease who are immunocompromised or suspected of having acute Hepatitis C infection may benefit from Nucleic Acid Test (JOAO) for Hepatitis C Viral RNA to confirm Hepatitis C status. Blood specimen (specimen) BLOOD SPECIMEN / Unknown 08/13/2017 11:37 AM SOLAR SALES ASSESSOR 08/13/2017 12:06 PM SOLAR SALES ASSESSOR Jennifer Nuñez MD LAB - CHEMISTR Y ORDERABLES [address] [phone] from Last 3 Months or Most Recently Relevant to Health Maintenance Care Teams Senior Cost Estimator Relationship Specialty Start Date End Date Demetrio Morgan MD [address] [place] [id number] PCP - General 03/27/15
--- OUTSIDE RECORDS SUMMARY | 2024-09-24 19:47 | XMS_ITS | Continuity of Care Document ---
Author Organization [facility] Address [address] [place] [address] [address] [place] [address] Phone Care Team Providers Care Parts Classifier Name Role Phone Nicolette Oliver Unavailable Unavailable Advance Directives Directive Yes / No Effective Date File Name No Information Encounters Encounter Description Practice Location Reason(s) For Visit Diagnoses Date Provider Providers Copied on Encounter [facility], [address] [place] [address] [address], [place], [place], [id number], [place] tel:[phone] [facility] No Information 6 Melody Will. [address] , [address], [place], [address], [place]. tel:[phone] Family History Family Member Type Diagnosis Age At Onset No Information Payers Payer name Insurance type Covered constitution party ID Authoriza tion(s) No Information Social History Type Description Quantity Date Captured Comments Sex Female Smoking Status No Information Chief Complaint And Reason For Visit No Information Reason For Referral Reason For Referral No Information History Of Present Illness Encounter Date Complaint History Of Prese nt Illness No Information Functional Status Date Functional Assessmen t No Information Instructions Date Instruction Additional Infor mation No Information Assessments Type Assessment Date No Information Patient Care Teams Name Effective Dates (start - stop) Status Members No Information
--- OUTSIDE RECORDS SUMMARY | 2024-09-24 19:47 | XMS_ITS | CONTINUITY OF CARE DOCUMENT ---
Author Name [email or web address] Address Unknown Organization [facility] Address [address] [place] [address] Phone [phone] Care Team Providers Care Motor Setter Name Role Phone Yusuf TREVINO, Jose D Unavailable [phone] INSURANCE PROVIDERS Payer name Policy type / Coverage type [place] red democrat [employer] [facility] Medicaid 2 [id number] [facility] MEDICARE COMPLETE HMO Other [id number]
--- OUTSIDE RECORDS SUMMARY | 2024-09-24 19:47 | XMS_ITS | Referral Summary ---
Author Organization [facility] Secpanel Address [address] [place] [address] Care Team Providers Care Test Tube Maker Name Role Phone Demetrio Morgan MD Primary Care Provider + Source Comments [facility],non-owned Affiliates and Associated Physician Practices is amultiple site organization consisting of ambulatory clinics and hospital sitesin [place], [place], [place] and [place]. This disclosure is being madepursuant to the Care Everywhere program and may not contain all information available regarding this patient. Last updated 18.[facility] Allergies Active Allergy Reactions Criticality Noted Date [...] by mouth DAILY. 08/13/2017 Active [facility] Products (OCTACOSANOL) 1000-5 MCG-UNIT Take by mouth BID. 08/13/2017 Active lisinopril (PRINIVIL; ZESTRIL) 20 MG tablet Take 20 mg by mouth DAILY. 08/13/2017 Active metoclopramide (REGLAN) 10 MG tablet Take 10 mg by mouth. 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 chapo 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,Restless legs syndrome,Other insomnia,Myalgia,Other fatigue Take 4 mg by mouth every 6 hours as needed for Nausea/Vomiting Active furosemide (LASIX) 40 MG tabletIndications: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 chapo 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,Restless legs syndrome,Other insomnia,Myalgia,Other fatigue 01/08/2018 Active LYRICA 150 MG capsuleIndications:Chr onic 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,Restless legs syndrome,Other insomnia,Myalgia,Other fatigue 01/11/2018 Active prochlorperazine (COMPAZINE) 10 MG tabletIndications: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 chapo 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,Restless legs syndrome,Other insomnia,Myalgia,Other fatigue [...] back pain 08/13/2017 Other chronic pain 08/13/2017 Social History Tobacco Use Types Packs/Day Years [...] 01/21/2018 3:12 PM CDT Plan of Treatment Not on file Procedures Procedure Name Priority Date/Time Associated Diagnosis Comments COMPREHENSIVE METABOLIC PANEL Routine 08/13/2017 11:37 AM SENIOR SITE MANAGER HEPATITIS C ANTIBODY Routine 08/13/2017 11:37 AM SENIOR SITE MANAGER from Last 3 Months or Most Recently Relevant to Health Maintenance Results * (ABNORMAL) COMPREHENSIVE METABOLIC PANEL (08/13/2017 11:37 AM SENIOR SITE MANAGER) BUN 16 7 - 26 mg/dL [facility] Creatinine 0.7 0.6 - 1.2 mg/dL [facility] Sodium 140 136 - 145 mmol/L [facility] Potassium 4.1 3.5 - 4.5 mmol/L [facility] Chloride 106 98 - 107 mmol/L [facility] CO2 25 22 - 29 mmol/L [facility] Glucose 96 70 - 115 mg/dL [facility] Calcium 9.0 8.4 - 10.2 mg/dL [facility] Protein Total 7.1 6.0 - 8.3 g/dL [facility] Albumin 3.3(L) 3.4 - 5.0 g/dL [facility] Bilirubin Total 0.2 0.2 - 1.2 mg/dL [facility] Alkaline Phosphatase 85 40 - 150 Units/L [facility] ALT 15 0 - 55 Units/L [facility] AST 15 5 - 34 Units/L [facility] Anion Gap 13 8 - 18 [facility] BUN/Creatinine Ratio 23 7 - 23 [facility] Osmolality Calculated 291 270 - 300 mOsm/kg [facility] Albumin/Globulin Ratio 0.9(L) 1.1 - 2.3 [facility] eGFR >60 >60 mL/min/1.7 3 m2 [facility] Blood specimen (specimen) BLOOD SPECIMEN / Unknown 08/13/2017 11:37 AM SENIOR SITE MANAGER 08/13/2017 12:04 PM SENIOR SITE MANAGER Jennifer Nuñez MD LAB - CHEMISTR Y ORDERABLES [address] [phone] * HEPATITIS C ANTIBODY (08/13/2017 11:37 AM SENIOR SITE MANAGER) Hepatitis C Antibody Non-react [facility] Comment: Hepatitis C Antibody screen indicates no serologic evidence of past or current infection with Hepatitis C Virus. Patients with unexplained liver disease who are immunocompromised or suspected of having acute Hepatitis C infection may benefit from Nucleic Acid Test (JOAO) for Hepatitis C Viral RNA to confirm Hepatitis C status. Blood specimen (specimen) BLOOD SPECIMEN / Unknown 08/13/2017 11:37 AM SENIOR SITE MANAGER 08/13/2017 12:06 PM SENIOR SITE MANAGER Jennifer Nuñez MD LAB - CHEMISTR Y ORDERABLES [address] [phone] from Last 3 Months or Most Recently Relevant to Health Maintenance Care Teams Test Tube Maker Relationship Specialty Start Date End Date Demetrio Morgan MD [address] [place] [id number] PCP - General 03/27/15
--- OUTSIDE RECORDS SUMMARY | 2024-09-24 19:47 | XMS_ITS | Patient Health Summary ---
Author Organization [facility] Address [address] [place] [address] Care Team Providers Care Pump Installation And Servicer Name Role Phone Demetrio Morgan MD Primary Care Provider + Note from [facility],non-owned Affiliates and Associated Physician Practices is amultiple site organization consisting of ambulatory clinics and hospital sitesin [place], [place], [place] and [place]. This disclosure is being madepursuant to the Care Everywhere program and may not contain all information available regarding this patient. Last updated 18.[facility] Allergies * Codeine(Other) -Low Criticality * Lidocaine(Rash) -Medium Criticality * Phenobarbital(Other) -Low Criticality * Quetiapine(Anxiety) -Low Criticality Medications * Be aware that medications may not be up to date on this document. Alwaysverify current medications with the patient. * divalproex DR (DEPAKOTE) 250 MG tablet(Started 08/13/2017) Take 250 mg by mouth TID. * oxyCODONE, immediate release, 10 MG tablet(Started 08/13/2017) Take 10 mg by mouth. * rOPINIRole (REQUIP) 1 MG tablet(Started 08/13/2017) Take 1 mg by mouth BID. * busPIRone (BUSPAR) 10 MG tablet(Started 08/13/2017) Take 10 mg by mouth BID. * DULoxetine (CYMBALTA) 60 MG capsule(Started 08/13/2017) Take 60 mg by mouth DAILY. * Misc Natural Products (OCTACOSANOL) 1000-5 MCG-UNIT(Started 08/13/2017) Take by mouth BID. * lisinopril (PRINIVIL; ZESTRIL) 20 MG tablet(Started 08/13/2017) Take 20 mg by mouth DAILY. * metoclopramide (REGLAN) 10 MG tablet(Started 08/13/2017) Take 10 mg by mouth. * LORazepam (ATIVAN) 1 MG tablet Take 1 mg by mouth every 8 hours as needed for Anxiety * baclofen (LIORESAL) 10 MG tablet Take 10 mg by mouth 3 times daily May cause drowsiness. * diclofenac potassium (CATAFLAM) 50 MG tablet Take 50 mg by mouth 2 times daily * SYMPROIC 0.2 MG TABS(Started 12/17/2017) * ondansetron (ZOFRAN) 4 MG tablet Take 4 mg by mouth every 6 hours as needed for Nausea/Vomiting * furosemide (LASIX) 40 MG tablet(Started 01/08/2018) * LYRICA 150 MG capsule(Started 01/11/2018) * prochlorperazine (COMPAZINE) 10 MG tablet(Started 12/08/2017) * tobramycin (TOBREX) 0.3 % ophthalmic solution(Started 10/22/2017) Active Problems Problem Noted Date Diagnosed Date [...] Mass Index 36.76 01/21/2018 3:12 PM CDT Procedures * HLA TYPING B27(Performed 08/13/2017) * COMPLEMENT TOTAL(Performed 08/13/2017) * CHROMATIN ANTIBODY(Performed 08/13/2017) * THYROGLOBULIN ANTIBODY(Performed 08/13/2017) * THYROID PEROXIDASE ANTIBODY(Performed 08/13/2017) * CYCLIC CITRULLINATED PEPTIDE(CCP) AB IGG(Performed 08/13/2017) * RHEUMATOID FACTOR BLOOD QUANTITATIVE(Performed 08/13/2017) * HEPATITIS B SURFACE ANTIGEN W RFLX CONFIRMATION(Performed 08/13/2017) * HEPATITIS C ANTIBODY(Performed 08/13/2017) * C-REACTIVE PROTEIN(Performed 08/13/2017) * VITAMIN D 25-HYDROXY(Performed 08/13/2017) * COMPLEMENT C4(Performed 08/13/2017) * COMPLEMENT C3(Performed 08/13/2017) * T4 FREE(Performed 08/13/2017) * TSH(Performed 08/13/2017) * URIC ACID BLOOD(Performed 08/13/2017) * CK BLOOD(Performed 08/13/2017) * COMPREHENSIVE METABOLIC PANEL(Performed 08/13/2017) * ERYTHROCYTE SEDIMENTATION RATE(Performed 08/13/2017) * URINALYSIS W/MICROSCOPIC NO CULTURE(Performed 08/13/2017) * CBC W/O DIFFERENTIAL(Performed 08/13/2017) * BETA-2 GLYCOPROTEIN 1 ANTIBODY IGA(Performed 08/13/2017) * CARDIOLIPIN ANTIBODY IGM(Performed 08/13/2017) * CARDIOLIPIN ANTIBODY IGG(Performed 08/13/2017) * CARDIOLIPIN ANTIBODY IGA(Performed 08/13/2017) * BETA-2 GLYCOPROTEIN 1 ANTIBODY IGM(Performed 08/13/2017) * BETA-2 GLYCOPROTEIN 1 ANTIBODY IGG(Performed 08/13/2017) * ANGEL (SM) ANTIBODY RANDAL(Performed 08/13/2017) * SS-B (SJOGREN'S) ANTIBODY(Performed 08/13/2017) * SS-A (SJOGREN'S) ANTIBODY(Performed 08/13/2017) * SCLERODERMA 70 (SCL) ANTIBODY(Performed 08/13/2017) * SORTING MACHINE ATTENDANT ANTIBODY(Performed 08/13/2017) * HISTONE ANTIBODY(Performed 08/13/2017) * DNA ANTIBODY DS CRITHIDIA TITER(Performed 08/13/2017) * CORA BLOOD SCREEN W/REFLEX TITER(Performed 08/13/2017) * XR KNEE RIGHT 3VW(Performed 08/13/2017) * XR HAND LEFT 2VW(Performed 08/13/2017) * XR HAND RIGHT 2VW(Performed 08/13/2017) * XR LUMBAR SPINE 2 OR 3VW(Performed 08/13/2017) * XR SI JOINTS 2VW OR LESS(Performed 08/13/2017) * XR KNEE LEFT 3VW(Performed 08/13/2017) Results * (ABNORMAL) URINALYSIS W/MICROSCOPIC NO CULTURE (08/13/2017 11:37 AM EQUIPMENT OPERATOR WAREHOUSE) Color UA Yellow Straw, Yellow, Colorless, Light Yellow [facility] Clarity UA Hazy(A) Clear [facility] Specific [place] UA 1.038(H) 1.001 - 1.030 [facility] pH UA 6.0 5.0 - 8.0 [facility] Protein UA 30(A) <=20 mg/dL [facility] Glucose UA Negative Negative mg/dL [facility] Ketone UA Trace(A) Negative mg/dL [facility] Bilirubin UA Negative Negative mg/dL [facility] Blood UA Negative Negative [facility] Nitrite UA Negative Negative [facility] Leukocyte Esterase Negative Negative [facility] Urobilinogen UA 4.0(H) <2.0 mg/dL [facility] RBC UA 6 0 - 8 /HPF [facility] WBC UA 2 0 - 2 /HPF [facility] Bacteria UA Moderate(A) Rare, Occasional, None /HPF [facility] Squamous Epithelial Cells UA 11(H) 0 - 1 /HPF [facility] Mucus UA Occasional( A) None /LPF [facility] Urine specimen (specimen) URINE SPECIMEN OBTAINED BY CLEAN CATCH PROCEDURE / Unknown 08/13/2017 11:37 AM EQUIPMENT OPERATOR WAREHOUSE 08/13/2017 12:04 PM EQUIPMENT OPERATOR WAREHOUSE Jennifer Nuñez MD LAB - URINALYS IS ORDERABLES [facility] [address] [phone] * CHROMATIN ANTIBODY (08/13/2017 11:37 AM EQUIPMENT OPERATOR WAREHOUSE) Anti-Chromatin Antibody <0.2 0.0 - 0.9 AI [facility] ([facility]) Blood specimen (specimen) BLOOD SPECIMEN / Unknown 08/13/2017 11:37 AM EQUIPMENT OPERATOR WAREHOUSE 08/13/2017 12:04 PM EQUIPMENT OPERATOR WAREHOUSE Narrative [facility] ([facility]) - 08/14/2017 1:11 PM EQUIPMENT OPERATOR WAREHOUSE Performed at: ??01 - [facility] [address] [place] [address] ??[id number] Mushroom Cultivator: Gurwinder Evans PhD, Phone: ??[phone] Jennifer Nuñez MD LAB - SEROLOGY ORDERABLES [facility]) [address] [place] [address] * URIC ACID BLOOD (08/13/2017 11:37 AM EQUIPMENT OPERATOR WAREHOUSE) Uric Acid 5.4 2.6 - 7.2 mg/dL [facility] Blood specimen (specimen) BLOOD SPECIMEN / Unknown 08/13/2017 11:37 AM EQUIPMENT OPERATOR WAREHOUSE 08/13/2017 12:04 PM EQUIPMENT OPERATOR WAREHOUSE Jennifer Nuñez MD LAB - CHEMISTR Y ORDERABLES [address] [phone] * RHEUMATOID FACTOR BLOOD QUANTITATIVE (08/13/2017 11:37 AM EQUIPMENT OPERATOR WAREHOUSE) Rheumatoid Factor <15 <30 IU/mL [facility] Blood specimen (specimen) BLOOD SPECIMEN / Unknown 08/13/2017 11:37 AM EQUIPMENT OPERATOR WAREHOUSE 08/13/2017 12:06 PM EQUIPMENT OPERATOR WAREHOUSE Jennifer Nuñez MD LAB - CHEMISTR Y ORDERABLES [address] [phone] * (ABNORMAL) C-REACTIVE PROTEIN (08/13/2017 11:37 AM EQUIPMENT OPERATOR WAREHOUSE) C-Reactive Protein 0.9(H) <=0.5 mg/dL [facility] Blood specimen (specimen) BLOOD SPECIMEN / Unknown 08/13/2017 11:37 AM EQUIPMENT OPERATOR WAREHOUSE 08/13/2017 12:06 PM EQUIPMENT OPERATOR WAREHOUSE Jennifer Nuñez MD LAB - CHEMISTR Y ORDERABLES Performing Organization Address [facility]/ZIP Co de Phone Number [facility] [address] [phone] * THYROID PEROXIDASE ANTIBODY (08/13/2017 11:37 AM EQUIPMENT OPERATOR WAREHOUSE) Thyroid Peroxidase TPO Antibody 13 0 - 34 IU/mL [facility] ([facility]) Blood specimen (specimen) BLOOD SPECIMEN / Unknown 08/13/2017 11:37 AM EQUIPMENT OPERATOR WAREHOUSE 08/13/2017 12:05 PM EQUIPMENT OPERATOR WAREHOUSE Narrative [facility] ([facility]) - 08/14/2017 4:10 AM EQUIPMENT OPERATOR WAREHOUSE Performed at: ??01 - [facility] [address] [place], [place] ??[id number] Mushroom Cultivator: Gurwinder Evans PhD, Phone: ??[phone] Jennifer Nuñez MD LAB - CHEMISTR Y ORDERABLES Performing Organization Address [facility] Co de Phone Number [facility] ([facility]) [address] [place] [address], [place] * THYROGLOBULIN ANTIBODY (08/13/2017 11:37 AM EQUIPMENT OPERATOR WAREHOUSE) Thyroglobulin Antibody <1.0 0.0 - 0.9 IU/mL [facility] ([facility]) Comment:Thyroglobulin Antibo dy measured by [facility] [employer] Blood specimen (specimen) BLOOD SPECIMEN / Unknown 08/13/2017 11:37 AM EQUIPMENT OPERATOR WAREHOUSE 08/13/2017 12:05 PM EQUIPMENT OPERATOR WAREHOUSE Narrative [facility] ([facility]) - 08/14/2017 1:11 PM EQUIPMENT OPERATOR WAREHOUSE Performed at: ??01 - [facility] [address] ??[id number] Mushroom Cultivator: Gurwinder Evans PhD, Phone: ??[phone] Jennifer Nuñez MD LAB - CHEMISTR Y ORDERABLES Performing Organization Address [facility] de Phone Number [facility] ([facility]) [address] [place] [address], [facility] * HLA TYPING B27 (08/13/2017 11:37 AM EQUIPMENT OPERATOR WAREHOUSE) [facility] HLA-B27 Negative Negative [facility] ([facility]) Comment: INTERPRETIVE INFORMATION: HLA-B27 HLA-B27 is a serologically defined allele of the human HLA-B locus. The presence of the HLA-B27 antigen is strongly associated with ankylosing spondylitis and related disorders. Test developed and characteristics determined by [employer]. See Compliance Statement B: [employer]/ Performed by [employer], [address] [place] [address] [email or web address], Nestor Boss MD, Lab. Director Blood specimen (specimen) BLOOD SPECIMEN / Unknown 08/13/2017 11:37 AM EQUIPMENT OPERATOR WAREHOUSE 08/13/2017 12:04 PM EQUIPMENT OPERATOR WAREHOUSE Jennifer Nuñez MD LAB - CHEMISTR Y ORDERABLES Performing Organization Address [facility] de Phone Number [facility] ([facility]) [address] [address] * (ABNORMAL) COMPLEMENT TOTAL (08/13/2017 11:37 AM EQUIPMENT OPERATOR WAREHOUSE) Pathologist [facility] Complement Total CH50 >60(H) 42 - 60 U/mL [facility] ([facility]) Blood specimen (specimen) BLOOD SPECIMEN / Unknown 08/13/2017 11:37 AM EQUIPMENT OPERATOR WAREHOUSE 08/13/2017 12:06 PM EQUIPMENT OPERATOR WAREHOUSE Narrative [facility] ([facility]) - 08/14/2017 4:19 PM EQUIPMENT OPERATOR WAREHOUSE Performed at: ??01 - [facility] [address] ??[id number] Mushroom Cultivator: Gurwinder Evans PhD, Phone: ??[phone] Jennifer Nuñez MD LAB - CHEMISTR Y ORDERABLES [facility] ([facility]) [address] [place] [address] * (ABNORMAL) VITAMIN D 25-HYDROXY (08/13/2017 11:37 AM EQUIPMENT OPERATOR WAREHOUSE) Pathologist [facility] Vitamin D, 25 Hydroxy 25.5(L) See comment: ng/mL [facility] Comment: The recommendations for 25-Hydroxy Vitamin D clinical decision points are as follows: ? Deficient: ? <20.0 ng/mL ? Insufficient: ??20.0 - 29.9 ng/mL ? Sufficient: ? > or =30.0 ng/mL If the 25-Hydroxy Vitamin D results are inconsitent with clinical evidence, it is recommended that follow-up testing using a method such as LC/MS/MS be performed to confirm the result. Reference: ?The Endocrine Society Clinical Practice Guidelines. 2011 ? Blood specimen (specimen) BLOOD SPECIMEN / Unknown 08/13/2017 11:37 AM EQUIPMENT OPERATOR WAREHOUSE 08/13/2017 12:04 PM EQUIPMENT OPERATOR WAREHOUSE Jennifer Nuñez MD LAB - CHEMISTR Y ORDERABLES [address] [phone] * CYCLIC CITRUL PEPTIDE AB IGG (CCP) (08/13/2017 11:37 AM EQUIPMENT OPERATOR WAREHOUSE) CCP Antibody IgG <0.5 <5.0 U/mL [facility] Blood specimen (specimen) BLOOD SPECIMEN / Unknown 08/13/2017 11:37 AM EQUIPMENT OPERATOR WAREHOUSE 08/13/2017 12:06 PM EQUIPMENT OPERATOR WAREHOUSE Jennifer Nuñez MD LAB - CHEMISTR Y ORDERABLES [address] [phone] * ERYTHROCYTE SEDIMENTATION RATE (08/13/2017 11:37 AM EQUIPMENT OPERATOR WAREHOUSE) Erythrocyte Sedimentation Rate Westergren 14 0 - 20 MM/HR [facility] Blood specimen (specimen) BLOOD SPECIMEN / Unknown 08/13/2017 11:37 AM EQUIPMENT OPERATOR WAREHOUSE 08/13/2017 12:06 PM EQUIPMENT OPERATOR WAREHOUSE Jennifer Nuñez MD LAB - HEMATOLO GY ORDERABLES Performing Organization Address [facility] Co de Phone Number [address] [phone] * CBC W/O DIFFERENTIAL (08/13/2017 11:37 AM EQUIPMENT OPERATOR WAREHOUSE) WBC 9.9 3.5 - 10.5 10? 3 /uL [facility] RBC 4.55 3.90 - 5.00 10? 6 /uL [facility] Hemoglobin 14.3 12.0 - 15.5 g/dL [facility] Hematocrit 43.7 35.0 - 45.0 % [facility] MCV 96.0 81.0 - 97.0 fL [facility] MCH 31.4 28.0 - 34.0 pg [facility] MCHC 32.7 32.0 - 36.0 g/dL [facility] Platelet Count 358 150 - 400 10? 3 /uL [facility] RDW-SD 45.9 36.0 - 50.0 fL [facility] RDW-CV 13.1 11.2 - 14.8 % [facility] MPV 10.9 9.3 - 12.8 fL [facility] nRBC Absolute 0.00 0 10? 3 /uL [facility] nRBC Auto 0.0 0 /100 WBC [facility] Blood specimen (specimen) BLOOD SPECIMEN / Unknown 08/13/2017 11:37 AM EQUIPMENT OPERATOR WAREHOUSE 08/13/2017 12:06 PM EQUIPMENT OPERATOR WAREHOUSE Jennifer Nuñez MD LAB - HEMATOLO GY ORDERABLES [address] [phone] * COMPLEMENT C4 (08/13/2017 11:37 AM EQUIPMENT OPERATOR WAREHOUSE) Complement C4 43 15 - 57 mg/dL [facility] Blood specimen (specimen) BLOOD SPECIMEN / Unknown 08/13/2017 11:37 AM EQUIPMENT OPERATOR WAREHOUSE 08/13/2017 12:04 PM EQUIPMENT OPERATOR WAREHOUSE Jennifer Nuñez MD LAB - SEROLOGY ORDERABLES Performing Organization Address City/[facility]/ZIP Co de Phone Number [address] [phone] * (ABNORMAL) COMPREHENSIVE METABOLIC PANEL (08/13/2017 11:37 AM EQUIPMENT OPERATOR WAREHOUSE) BUN 16 7 - 26 mg/dL [facility] Creatinine 0.7 0.6 - 1.2 mg/dL [facility] Sodium 140 136 - 145 mmol/L [facility] Potassium 4.1 3.5 - 4.5 mmol/L [facility] Chloride 106 98 - 107 mmol/L [facility] CO2 25 22 - 29 mmol/L [facility] Glucose 96 70 - 115 mg/dL [facility] Calcium 9.0 8.4 - 10.2 mg/dL [facility] Protein Total 7.1 6.0 - 8.3 g/dL [facility] Albumin 3.3(L) 3.4 - 5.0 g/dL [facility] Bilirubin Total 0.2 0.2 - 1.2 mg/dL [facility] Alkaline Phosphatase 85 40 - 150 Units/L [facility] ALT 15 0 - 55 Units/L [facility] AST 15 5 - 34 Units/L [facility] Anion Gap 13 8 - 18 [facility] BUN/Creatinine Ratio 23 7 - [address] [facility] Osmolality Calculated 291 270 - 300 mOsm/kg [facility] Albumin/Globulin Ratio 0.9(L) 1.1 - 2.3 [facility] eGFR >60 >60 mL/min/1.7 3 m2 [facility] Blood specimen (specimen) BLOOD SPECIMEN / Unknown 08/13/2017 11:37 AM EQUIPMENT OPERATOR WAREHOUSE 08/13/2017 12:04 PM EQUIPMENT OPERATOR WAREHOUSE Jennifer Nuñez MD LAB - CHEMISTR Y ORDERABLES Performing Organization Address [facility]/ZIP Co de Phone Number [address] [phone] * HEPATITIS B SURFACE ANTIGEN W RFLX CONFIRMATION (08/13/2017 11:37 AM EQUIPMENT OPERATOR WAREHOUSE) Hepatitis B Virus Surface Antigen Non-reacti ve Non-reacti ve [facility] Blood specimen (specimen) BLOOD SPECIMEN / Unknown 08/13/2017 11:37 AM EQUIPMENT OPERATOR WAREHOUSE 08/13/2017 12:06 PM EQUIPMENT OPERATOR WAREHOUSE Jennifer Nuñez MD LAB - CHEMISTR Y ORDERABLES Performing Organization Address [facility] Co de Phone Number [address] [phone] * CK BLOOD (08/13/2017 11:37 AM EQUIPMENT OPERATOR WAREHOUSE) CK Total 174 30 - 200 Units/L [facility] Blood specimen (specimen) BLOOD SPECIMEN / Unknown 08/13/2017 11:37 AM EQUIPMENT OPERATOR WAREHOUSE 08/13/2017 12:04 PM EQUIPMENT OPERATOR WAREHOUSE Jennifer Nuñez MD LAB - CHEMISTR Y ORDERABLES Performing Organization Address [facility] Co de Phone Number [address] [phone] * TSH (08/13/2017 11:37 AM EQUIPMENT OPERATOR WAREHOUSE) TSH 1.866 0.350 - 4.940 uIU/mL [facility] Blood specimen (specimen) BLOOD SPECIMEN / Unknown 08/13/2017 11:37 AM EQUIPMENT OPERATOR WAREHOUSE 08/13/2017 12:04 PM EQUIPMENT OPERATOR WAREHOUSE Jennifer Nuñez MD LAB - CHEMISTR Y ORDERABLES Performing Organization Address [facility]/ZIP Co de Phone Number [address] [phone] * T4 FREE (08/13/2017 11:37 AM EQUIPMENT OPERATOR WAREHOUSE) T4 Free 0.9 0.7 - 1.5 ng/dL [facility] Blood specimen (specimen) BLOOD SPECIMEN / Unknown 08/13/2017 11:37 AM EQUIPMENT OPERATOR WAREHOUSE 08/13/2017 12:04 PM EQUIPMENT OPERATOR WAREHOUSE Jennifer Nuñez MD LAB - CHEMISTR Y ORDERABLES Performing Organization Address [facility] Co de Phone Number [address] [phone] * HEPATITIS C ANTIBODY (08/13/2017 11:37 AM EQUIPMENT OPERATOR WAREHOUSE) Hepatitis C Antibody Non-react [facility] Comment: Hepatitis C Antibody screen indicates no serologic evidence of past or current infection with Hepatitis C Virus. Patients with unexplained liver disease who are immunocompromised or suspected of having acute Hepatitis C infection may benefit from Nucleic Acid Test (JOAO) for Hepatitis C Viral RNA to confirm Hepatitis C status. Blood specimen (specimen) BLOOD SPECIMEN / Unknown 08/13/2017 11:37 AM EQUIPMENT OPERATOR WAREHOUSE 08/13/2017 12:06 PM EQUIPMENT OPERATOR WAREHOUSE Jennifer Nuñez MD LAB - CHEMISTR Y ORDERABLES Performing Organization Address [facility] Co de Phone Number [address] [phone] * COMPLEMENT C3 (08/13/2017 11:37 AM EQUIPMENT OPERATOR WAREHOUSE) Complement C3 133 82 - 193 mg/dL [facility] Blood specimen (specimen) BLOOD SPECIMEN / Unknown 08/13/2017 11:37 AM EQUIPMENT OPERATOR WAREHOUSE 08/13/2017 12:04 PM EQUIPMENT OPERATOR WAREHOUSE Jennifer Nuñez MD LAB - CHEMISTR Y ORDERABLES Performing Organization Address [facility]/ZIP Co de Phone Number [address] [phone] * BETA-2 GLYCOPROTEIN 1 ANTIBODY IGG (08/13/2017 11:37 AM EQUIPMENT OPERATOR WAREHOUSE) Beta-2 Glycoprotein I Antibody IgG <20.0 <20.0 [facility] Blood specimen (specimen) BLOOD SPECIMEN / Unknown 08/13/2017 11:37 AM EQUIPMENT OPERATOR WAREHOUSE 08/13/2017 12:04 PM EQUIPMENT OPERATOR WAREHOUSE Jennifer Nuñez MD LAB - SEROLOGY ORDERABLES Performing Organization Address [facility] Co de Phone [address] [phone] * BETA-2 GLYCOPROTEIN 1 ANTIBODY IGM (08/13/2017 11:37 AM EQUIPMENT OPERATOR WAREHOUSE) Beta-2 Glycoprotein Antibody IgM <20.0 <20.0 [facility] Blood specimen (specimen) BLOOD SPECIMEN / Unknown 08/13/2017 11:37 AM EQUIPMENT OPERATOR WAREHOUSE 08/13/2017 12:04 PM EQUIPMENT OPERATOR WAREHOUSE Jennifer Nuñez MD LAB - SEROLOGY ORDERABLES Performing Organization Address [facility] Co de Phone Number [address] [phone] * DNA ANTIBODY DS CRITHIDIA TITER (08/13/2017 11:37 AM EQUIPMENT OPERATOR WAREHOUSE) dsDNA Antibody IgG IFA <1:10 <1:10 [facility] ([facility]) Comment: INTERPRETIVE INFORMATION: Double-Stranded DNA (dsDNA) Antibody, IgG by IFA (using Crithidia luciliae) Positivity for anti-double stranded DNA (anti-dsDNA) IgG antibody is a diagnostic criterion of systemic lupus erythematosus (SLE). The presence of the anti-dsDNA IgG antibody is identified by IFA titer (Crithidia luciliae indirect fluorescent test [DAVID]). DAVID is highly specific for SLE with a sensitivity of 50-60 percent. Some patients with early or inactive SLE may be positive for anti-dsDNA IgG by IGNACIO but negative by DAVID. If the DAVID result is negative but the patient has a positive IGNACIO and clinical suspicion remains, consider antinuclear antibody (CORA) testing by IFA. Additional information and recommendations for testing may be found at http://[email or web address]/Topics/[email or web address]/[email or web address] ndex.html. Performed by [employer], [address] [place] [address] [email or web address], Nestor Boss MD, Lab. Director Blood specimen (specimen) BLOOD SPECIMEN / Unknown 08/13/2017 11:37 AM EQUIPMENT OPERATOR WAREHOUSE 08/13/2017 12:05 PM EQUIPMENT OPERATOR WAREHOUSE Jennifer Nuñez MD LAB - SEROLOGY ORDERABLES [facility]) [address] [place], [place] [id number] [place] [address] * CARDIOLIPIN ANTIBODY IGA (08/13/2017 11:37 AM EQUIPMENT OPERATOR WAREHOUSE) Anticardiolipin Antibody IgA <15.0 <15.0 APL [facility] Blood specimen (specimen) BLOOD SPECIMEN / Unknown 08/13/2017 11:37 AM EQUIPMENT OPERATOR WAREHOUSE 08/13/2017 12:04 PM EQUIPMENT OPERATOR WAREHOUSE Jennifer Nuñez MD LAB - SEROLOGY ORDERABLES [address] [phone] * CARDIOLIPIN ANTIBODY IGM (08/13/2017 11:37 AM EQUIPMENT OPERATOR WAREHOUSE) Anticardiolipin Antibody IgM <15.0 <15.0 [facility] Blood specimen (specimen) BLOOD SPECIMEN / Unknown 08/13/2017 11:37 AM EQUIPMENT OPERATOR WAREHOUSE 08/13/2017 12:04 PM EQUIPMENT OPERATOR WAREHOUSE Jennifer Nuñez MD LAB - SEROLOGY ORDERABLES Performing Organization Address [facility] Co de Phone Number [address] [phone] * CARDIOLIPIN ANTIBODY IGG (08/13/2017 11:37 AM EQUIPMENT OPERATOR WAREHOUSE) Anticardiolipin Antibody IgG <15.0 <15.0 GPL [facility] Blood specimen (specimen) BLOOD SPECIMEN / Unknown 08/13/2017 11:37 AM EQUIPMENT OPERATOR WAREHOUSE 08/13/2017 12:04 PM EQUIPMENT OPERATOR WAREHOUSE Jennifer Nuñez MD LAB - SEROLOGY ORDERABLES Performing Organization Address [facility] de Phone Number [address] [phone] * ANGEL (SM) ANTIBODY RANDAL (08/13/2017 11:37 AM EQUIPMENT OPERATOR WAREHOUSE) Angel Antibody 3.0 0.0 - 19.9 Units [facility] Comment: RANDAL Antibody Numeric Result Interpretation: ?<20.0 Units: ??Negative ?20.0 - 39.0 Units: ??Weakly Positive ?>39.0 Units: ??Positive ? Blood specimen (specimen) BLOOD SPECIMEN / Unknown 08/13/2017 11:37 AM EQUIPMENT OPERATOR WAREHOUSE 08/13/2017 12:05 PM EQUIPMENT OPERATOR WAREHOUSE Jennifer Nuñez MD LAB - CHEMISTR Y ORDERABLES Performing Organization Address [facility] Co de Phone Number [address] [phone] * SORTING MACHINE ATTENDANT ANTIBODY (08/13/2017 11:37 AM EQUIPMENT OPERATOR WAREHOUSE) SM/SORTING MACHINE ATTENDANT Antibody 3.0 0.0 - 19.9 Units [facility] Comment: RANDAL Antibody Numeric Result Interpretation: ?<20.0 Units: ??Negative ?20.0 - 39.0 Units: ??Weakly Positive ?>39.0 Units: ??Positive ? Blood specimen (specimen) BLOOD SPECIMEN / Unknown 08/13/2017 11:37 AM EQUIPMENT OPERATOR WAREHOUSE 08/13/2017 12:05 PM EQUIPMENT OPERATOR WAREHOUSE Jennifer Nuñez MD LAB - CHEMISTR Y ORDERABLES Performing Organization Address [facility] [facility] de Phone Number [address] [phone] * CORA BLOOD SCREEN W/REFLEX TITER (08/13/2017 11:37 AM EQUIPMENT OPERATOR WAREHOUSE) CORA IFA Negative [facility] ([facility]) Comment: ? Negative ?? <1:80 ? Borderline ??1:80 ? Positive ?? >1:80 Blood specimen (specimen) BLOOD SPECIMEN / Unknown 08/13/2017 11:37 AM EQUIPMENT OPERATOR WAREHOUSE 08/13/2017 12:05 PM EQUIPMENT OPERATOR WAREHOUSE Narrative [facility] ([facility]) - 08/14/2017 7:08 PM EQUIPMENT OPERATOR WAREHOUSE Performed at: ??01 - [facility] [address] [place], [place] ??[id number] Mushroom Cultivator: Gurwinder Evans PhD, Phone: ??[phone] Jennifer Nuñez MD LAB - CHEMISTR Y ORDERABLES Performing Organization Address [facility] Co de Phone Number [facility]) [address] [place] [address] * BETA-2 GLYCOPROTEIN 1 ANTIBODY IGA (08/13/2017 11:37 AM EQUIPMENT OPERATOR WAREHOUSE) Beta-2 Glycoprotein I Antibody IgA <20.0 <20.0 IJEOMA [facility] Blood specimen (specimen) BLOOD SPECIMEN / Unknown 08/13/2017 11:37 AM EQUIPMENT OPERATOR WAREHOUSE 08/13/2017 12:04 PM EQUIPMENT OPERATOR WAREHOUSE Jennifer Nuñez MD LAB - SEROLOGY ORDERABLES [address] [phone] * HISTONE ANTIBODY (08/13/2017 11:37 AM EQUIPMENT OPERATOR WAREHOUSE) Pathologist [facility] Anti-Histone Antibody 0.3 0.0 - 0.9 Units [facility] ([facility]) Comment: ? Negative ?<1.0 ? Weak Positive ?1.0 - 1.5 ? Moderate Positive ??1.6 - 2.5 ? Strong Positive ? >2.5 Blood specimen (specimen) BLOOD SPECIMEN / Unknown 08/13/2017 11:37 AM EQUIPMENT OPERATOR WAREHOUSE 08/13/2017 12:06 PM EQUIPMENT OPERATOR WAREHOUSE Narrative [facility] ([facility]) - 08/18/2017 2:12 PM EQUIPMENT OPERATOR WAREHOUSE Performed at: ??01 - [address] ??[id number] Mushroom Cultivator: Manuel Ellis MD, Phone: ??[phone] Jennifer Nuñez MD LAB - CHEMISTR Y ORDERABLES Performing Organization Address [facility] de Phone Number [facility] ([facility] [address] [place] [address] * SS-B (SJOGRENS'S) ANTIBODY (08/13/2017 11:37 AM EQUIPMENT OPERATOR WAREHOUSE) SS-B LA Antibody 3.7 0.0 - 19.9 Units [facility] Comment: RANDAL Antibody Numeric Result Interpretation: ?<20.0 Units: ??Negative ?20.0 - 39.0 Units: ??Weakly Positive ?>39.0 Units: ??Positive ? Blood specimen (specimen) BLOOD SPECIMEN / Unknown 08/13/2017 11:37 AM EQUIPMENT OPERATOR WAREHOUSE 08/13/2017 12:05 PM EQUIPMENT OPERATOR WAREHOUSE Jennifer Nuñez MD LAB - CHEMISTR Y ORDERABLES Performing Organization Address [facility] de Phone Number [address] [phone] * SS-A (SJOGREN'S) ANTIBODY (08/13/2017 11:37 AM EQUIPMENT OPERATOR WAREHOUSE) SS-A (Ro) Antibody 2.3 0.0 - 19.9 Units [facility] Comment: RANDAL Antibody Numeric Result Interpretation: ?<20.0 Units: ??Negative ?20.0 - 39.0 Units: ??Weakly Positive ?>39.0 Units: ??Positive ? Blood specimen (specimen) BLOOD SPECIMEN / Unknown 08/13/2017 11:37 AM EQUIPMENT OPERATOR WAREHOUSE 08/13/2017 12:05 PM EQUIPMENT OPERATOR WAREHOUSE Jennifer Nuñez MD LAB - CHEMISTR Y ORDERABLES Performing Organization Address [facility] de Phone Number [address] [place] [address], [place] [phone] * SCLERODERMA 70 (SCL) ANTIBODY (08/13/2017 11:37 AM EQUIPMENT OPERATOR WAREHOUSE) SCL-70 Antibody 2.9 0.0 - 19.9 Units [facility] Comment: RANDAL Antibody Numeric Result Interpretation: ?<20.0 Units: ??Negative ?20.0 - 39.0 Units: ??Weakly Positive ?>39.0 Units: ??Positive ? Blood specimen (specimen) BLOOD SPECIMEN / Unknown 08/13/2017 11:37 AM EQUIPMENT OPERATOR WAREHOUSE 08/13/2017 12:05 PM EQUIPMENT OPERATOR WAREHOUSE Jennifer Nuñez MD LAB - CHEMISTR Y ORDERABLES [address] [phone] * XR KNEE RIGHT 3VW (08/13/2017 11:17 AM EQUIPMENT OPERATOR WAREHOUSE) Anatomical Region Laterality Modality Lower Extremity Other Impressions 08/13/2017 12:23 PM EQUIPMENT OPERATOR WAREHOUSE IMPRESSION: 1. Right hand: Minimal degenerative change of the first carpal metacarpal joint. 2. Left hand: Mild degenerative change of the first carpal metacarpal joint. 3. Right knee: Osteoarthritis, severe in the medial compartment resulting in varus deformity, and an effusion. 4. Left knee: Osteoarthritis, severe in the medial compartment resulting in varus deformity, and an effusion. 5. Sacroiliac joints: Small cortical defects along the iliac sides of both joints superiorly which could represent erosions or a variant appearance. Their location at the superior aspect of the sacroiliac joints is less common for erosions associated with an inflammatory sacroiliitis. This report was dictated by Neal Gonzalez M.D. (vice president of engineering). I, Dr. SUNDAR CEDILLO MD have personally reviewed and interpreted this examination/study. This report was electronically signed by SUNDAR CEDILLO MD ??on 08/13/2017 12:23 PM . Narrative 08/13/2017 12:23 PM EQUIPMENT OPERATOR WAREHOUSE EXAMINATION: 1. ??AP, lateral, and oblique radiographs of the sacroiliac joints. 2. ??AP & lateral radiographs of the right hand. 3. ??AP & lateral radiographs of the left hand. 4. ??AP & lateral radiographs of the right knee. 5. ??AP & lateral radiographs of the left knee. HISTORY: Arthralgias of multiple joints and low back pain. COMPARISON: ?None FINDINGS: Right hand: No fracture or dislocation is present. The joint spaces are normal. Small osteophyte formation is noted at the first carpometacarpal joint indicating early degenerative change. No erosions are seen. ??Bone density appears normal. ??The soft tissues are normal. Left hand: No fracture or dislocation is present. The joint spaces are normal. Osteophytes are noted at the first carpometacarpal joint consistent with mild degenerative change. No erosions are seen. ??Bone density appears normal. ??The soft tissues are normal. Right knee: No fracture or dislocation is seen. There is an effusion. There is osteoarthritis, greatest in the medial compartment where it is severe with lhdn-ak-wgrx contact. This results in varus angulation of the knee. Tricompartmental osteophytes are noted. Subchondral cysts are seen, but no definite erosions are identified. Left knee: No fracture or dislocation is present. There is osteoarthritis, greatest in the medial compartment where it is severe with awfj-ys-clma contact. Tricompartmental osteophytes are seen. There is varus angulation of the knee due to the severe medial compartment involvement. An effusion is noted. No erosions are seen. Sacroiliac joints: A small cortical lucency is seen along the iliac side of the right sacroiliac joint superiorly. A similar finding is noted on the left. These could represent erosions or variant appearance. Their location at the superior aspect of the sacroiliac joints is less common for erosions associated with an inflammatory sacroiliitis. The inferior aspects of the sacroiliac joints are normal without erosions. There is no widening, narrowing, sclerosis, or ankylosis on either side. Iliac crest enthesophytes are noted. The hip joint spaces are normal. No displaced fracture is seen. The pubic symphysis is normal. Procedure Note Sundar Cedillo MD - 11/27/2017 EXAMINATION: 1. AP, lateral, and oblique radiographs of the sacroiliac joints. 2. AP & lateral radiographs of the right hand. 3. AP & lateral radiographs of the left hand. 4. AP & lateral radiographs of the right knee. 5. AP & lateral radiographs of the left knee. HISTORY: Arthralgias of multiple joints and low back pain. COMPARISON: None FINDINGS: Right hand: No fracture or dislocation is present. The joint spaces are normal. Smallosteophyte formation is noted at the first carpometacarpal jointindicating early degenerative change. No erosions are seen. Bone densityappears normal. The soft tissues are normal. Left hand: No fracture or dislocation is present. The joint spaces are normal.Osteophytes are noted at the first carpometacarpal joint consistent withmild degenerative change. No erosions are seen. Bone density appearsnormal. The soft tissues are normal. Right knee: No fracture or dislocation is seen. There is an effusion. There isosteoarthritis, greatest in the medial compartment where it is severe giavyeuq-kf-mjyh contact. This results in varus angulation of the knee.Tricompartmental osteophytes are noted. Subchondral cysts are seen, but no definite erosions are identified. Left knee: No fracture or dislocation is present. There is osteoarthritis, greatestin the medial compartment where it is severe with dlnp-rd-imyx contact.Tricompartmental osteophytes are seen. There is varus angulation of theknee due to the severe medial compartment involvement. An effusion is noted. No erosions are seen. Sacroiliac joints: A small cortical lucency is seen along the iliac side of the rightsacroiliac joint superiorly. A similar finding is noted on the left. Thesecould represent erosions or variant appearance. Their location at thesuperior aspect of the sacroiliac joints is less common for erosions associated with an inflammatory sacroiliitis.The inferior aspects of the sacroiliac joints are normal without erosions.There is no widening, narrowing, sclerosis, or ankylosis on either side.Iliac crest enthesophytes are noted. The hip joint spaces are normal. No displaced fracture is seen. Thepubic symphysis is normal. IMPRESSION IMPRESSION: 1. Right hand: Minimal degenerative change of the first carpal metacarpaljoint. 2. Left hand: Mild degenerative change of the first carpal metacarpaljoint. 3. Right knee: Osteoarthritis, severe in the medial compartment resultingin varus deformity, and an effusion. 4. Left knee: Osteoarthritis, severe in the medial compartment resultingin varus deformity, and an effusion. 5. Sacroiliac joints: Small cortical defects along the iliac sides of bothjoints superiorly which could represent erosions or a variant appearance.Their location at the superior aspect of the sacroiliac joints is lesscommon for erosions associated with an inflammatory sacroiliitis. This report was dictated by Neal Gonzalez M.D. (vice president of engineering). Dr. SUNDAR Howe MD have personally reviewed and interpreted thisexamination/study. This report was electronically signed by SUNDAR CEDILLO MD on08/13/2017 12:23 PM . Jennifer Nuñez MD DIAGNOSTIC CHENG GING ORDERABLES * XR KNEE LEFT 3VW (08/13/2017 11:17 AM EQUIPMENT OPERATOR WAREHOUSE) Anatomical Region Laterality Modality Lower Extremity Other Impressions 08/13/2017 12:23 PM EQUIPMENT OPERATOR WAREHOUSE IMPRESSION: 1. Right hand: Minimal degenerative change of the first carpal metacarpal joint. 2. Left hand: Mild degenerative change of the first carpal metacarpal joint. 3. Right knee: Osteoarthritis, severe in the medial compartment resulting in varus deformity, and an effusion. 4. Left knee: Osteoarthritis, severe in the medial compartment resulting in varus deformity, and an effusion. 5. Sacroiliac joints: Small cortical defects along the iliac sides of both joints superiorly which could represent erosions or a variant appearance. Their location at the superior aspect of the sacroiliac joints is less common for erosions associated with an inflammatory sacroiliitis. This report was dictated by Neal Gonzalez M.D. (vice president of engineering). Dr. SUNDAR Howe MD have personally reviewed and interpreted this examination/study. This report was electronically signed by SUNDAR CEDILLO MD ??on 08/13/2017 12:23 PM . Narrative 08/13/2017 12:23 PM EQUIPMENT OPERATOR WAREHOUSE EXAMINATION: 1. ??AP, lateral, and oblique radiographs of the sacroiliac joints. 2. ??AP & lateral radiographs of the right hand. 3. ??AP & lateral radiographs of the left hand. 4. ??AP & lateral radiographs of the right knee. 5. ??AP & lateral radiographs of the left knee. HISTORY: Arthralgias of multiple joints and low back pain. COMPARISON: ?None FINDINGS: Right hand: No fracture or dislocation is present. The joint spaces are normal. Small osteophyte formation is noted at the first carpometacarpal joint indicating early degenerative change. No erosions are seen. ??Bone density appears normal. ??The soft tissues are normal. Left hand: No fracture or dislocation is present. The joint spaces are normal. Osteophytes are noted at the first carpometacarpal joint consistent with mild degenerative change. No erosions are seen. ??Bone density appears normal. ??The soft tissues are normal. Right knee: No fracture or dislocation is seen. There is an effusion. There is osteoarthritis, greatest in the medial compartment where it is severe with adys-iv-tnrl contact. This results in varus angulation of the knee. Tricompartmental osteophytes are noted. Subchondral cysts are seen, but no definite erosions are identified. Left knee: No fracture or dislocation is present. There is osteoarthritis, greatest in the medial compartment where it is severe with barq-zo-ezwf contact. Tricompartmental osteophytes are seen. There is varus angulation of the knee due to the severe medial compartment involvement. An effusion is noted. No erosions are seen. Sacroiliac joints: A small cortical lucency is seen along the iliac side of the right sacroiliac joint superiorly. A similar finding is noted on the left. These could represent erosions or variant appearance. Their location at the superior aspect of the sacroiliac joints is less common for erosions associated with an inflammatory sacroiliitis. The inferior aspects of the sacroiliac joints are normal without erosions. There is no widening, narrowing, sclerosis, or ankylosis on either side. Iliac crest enthesophytes are noted. The hip joint spaces are normal. No displaced fracture is seen. The pubic symphysis is normal. Procedure Note Sundar Cedillo MD - 11/27/2017 EXAMINATION: 1. AP, lateral, and oblique radiographs of the sacroiliac joints. 2. AP & lateral radiographs of the right hand. 3. AP & lateral radiographs of the left hand. 4. AP & lateral radiographs of the right knee. 5. AP & lateral radiographs of the left knee. HISTORY: Arthralgias of multiple joints and low back pain. COMPARISON: None FINDINGS: Right hand: No fracture or dislocation is present. The joint spaces are normal. Smallosteophyte formation is noted at the first carpometacarpal jointindicating early degenerative change. No erosions are seen. Bone densityappears normal. The soft tissues are normal. Left hand: No fracture or dislocation is present. The joint spaces are normal.Osteophytes are noted at the first carpometacarpal joint consistent withmild degenerative change. No erosions are seen. Bone density appearsnormal. The soft tissues are normal. Right knee: No fracture or dislocation is seen. There is an effusion. There isosteoarthritis, greatest in the medial compartment where it is severe tkpzdury-nw-ituf contact. This results in varus angulation of the knee.Tricompartmental osteophytes are noted. Subchondral cysts are seen, but no definite erosions are identified. Left knee: No fracture or dislocation is present. There is osteoarthritis, greatestin the medial compartment where it is severe with lceo-rc-xuzm contact.Tricompartmental osteophytes are seen. There is varus angulation of theknee due to the severe medial compartment involvement. An effusion is noted. No erosions are seen. Sacroiliac joints: A small cortical lucency is seen along the iliac side of the rightsacroiliac joint superiorly. A similar finding is noted on the left. Thesecould represent erosions or variant appearance. Their location at thesuperior aspect of the sacroiliac joints is less common for erosions associated with an inflammatory sacroiliitis.The inferior aspects of the sacroiliac joints are normal without erosions.There is no widening, narrowing, sclerosis, or ankylosis on either side.Iliac crest enthesophytes are noted. The hip joint spaces are normal. No displaced fracture is seen. Thepubic symphysis is normal. IMPRESSION IMPRESSION: 1. Right hand: Minimal degenerative change of the first carpal metacarpaljoint. 2. Left hand: Mild degenerative change of the first carpal metacarpaljoint. 3. Right knee: Osteoarthritis, severe in the medial compartment resultingin varus deformity, and an effusion. 4. Left knee: Osteoarthritis, severe in the medial compartment resultingin varus deformity, and an effusion. 5. Sacroiliac joints: Small cortical defects along the iliac sides of bothjoints superiorly which could represent erosions or a variant appearance.Their location at the superior aspect of the sacroiliac joints is lesscommon for erosions associated with an inflammatory sacroiliitis. This report was dictated by Neal Gonzalez M.D. (vice president of engineering). Dr. SUNDAR Howe MD have personally reviewed and interpreted thisexamination/study. This report was electronically signed by SUNDAR CEDILLO MD on08/13/2017 12:23 PM . Jennifer Nuñez MD DIAGNOSTIC CHENG GING ORDERABLES * XR HAND RIGHT 2VW (08/13/2017 11:17 AM EQUIPMENT OPERATOR WAREHOUSE) Anatomical Region Laterality Modality Wrist / Hand Other Impressions 08/13/2017 12:23 PM EQUIPMENT OPERATOR WAREHOUSE IMPRESSION: 1. Right hand: Minimal degenerative change of the first carpal metacarpal joint. 2. Left hand: Mild degenerative change of the first carpal metacarpal joint. 3. Right knee: Osteoarthritis, severe in the medial compartment resulting in varus deformity, and an effusion. 4. Left knee: Osteoarthritis, severe in the medial compartment resulting in varus deformity, and an effusion. 5. Sacroiliac joints: Small cortical defects along the iliac sides of both joints superiorly which could represent erosions or a variant appearance. Their location at the superior aspect of the sacroiliac joints is less common for erosions associated with an inflammatory sacroiliitis. This report was dictated by Neal Gonzalez M.D. (vice president of engineering). Dr. SUNDAR Howe MD have personally reviewed and interpreted this examination/study. This report was electronically signed by SUNDAR CEDILLO MD ??on 08/13/2017 12:23 PM . Narrative 08/13/2017 12:23 PM EQUIPMENT OPERATOR WAREHOUSE EXAMINATION: 1. ??AP, lateral, and oblique radiographs of the sacroiliac joints. 2. ??AP & lateral radiographs of the right hand. 3. ??AP & lateral radiographs of the left hand. 4. ??AP & lateral radiographs of the right knee. 5. ??AP & lateral radiographs of the left knee. HISTORY: Arthralgias of multiple joints and low back pain. COMPARISON: ?None FINDINGS: Right hand: No fracture or dislocation is present. The joint spaces are normal. Small osteophyte formation is noted at the first carpometacarpal joint indicating early degenerative change. No erosions are seen. ??Bone density appears normal. ??The soft tissues are normal. Left hand: No fracture or dislocation is present. The joint spaces are normal. Osteophytes are noted at the first carpometacarpal joint consistent with mild degenerative change. No erosions are seen. ??Bone density appears normal. ??The soft tissues are normal. Right knee: No fracture or dislocation is seen. There is an effusion. There is osteoarthritis, greatest in the medial compartment where it is severe with rnfl-xk-mjqw contact. This results in varus angulation of the knee. Tricompartmental osteophytes are noted. Subchondral cysts are seen, but no definite erosions are identified. Left knee: No fracture or dislocation is present. There is osteoarthritis, greatest in the medial compartment where it is severe with cmcx-xx-reih contact. Tricompartmental osteophytes are seen. There is varus angulation of the knee due to the severe medial compartment involvement. An effusion is noted. No erosions are seen. Sacroiliac joints: A small cortical lucency is seen along the iliac side of the right sacroiliac joint superiorly. A similar finding is noted on the left. These could represent erosions or variant appearance. Their location at the superior aspect of the sacroiliac joints is less common for erosions associated with an inflammatory sacroiliitis. The inferior aspects of the sacroiliac joints are normal without erosions. There is no widening, narrowing, sclerosis, or ankylosis on either side. Iliac crest enthesophytes are noted. The hip joint spaces are normal. No displaced fracture is seen. The pubic symphysis is normal. Procedure Note Sundar Cedillo MD - 11/27/2017 EXAMINATION: 1. AP, lateral, and oblique radiographs of the sacroiliac joints. 2. AP & lateral radiographs of the right hand. 3. AP & lateral radiographs of the left hand. 4. AP & lateral radiographs of the right knee. 5. AP & lateral radiographs of the left knee. HISTORY: Arthralgias of multiple joints and low back pain. COMPARISON: None FINDINGS: Right hand: No fracture or dislocation is present. The joint spaces are normal. Smallosteophyte formation is noted at the first carpometacarpal jointindicating early degenerative change. No erosions are seen. Bone densityappears normal. The soft tissues are normal. Left hand: No fracture or dislocation is present. The joint spaces are normal.Osteophytes are noted at the first carpometacarpal joint consistent withmild degenerative change. No erosions are seen. Bone density appearsnormal. The soft tissues are normal. Right knee: No fracture or dislocation is seen. There is an effusion. There isosteoarthritis, greatest in the medial compartment where it is severe bdirrnta-tk-jbcj contact. This results in varus angulation of the knee.Tricompartmental osteophytes are noted. Subchondral cysts are seen, but no definite erosions are identified. Left knee: No fracture or dislocation is present. There is osteoarthritis, greatestin the medial compartment where it is severe with jgig-qt-ccyn contact.Tricompartmental osteophytes are seen. There is varus angulation of theknee due to the severe medial compartment involvement. An effusion is noted. No erosions are seen. Sacroiliac joints: A small cortical lucency is seen along the iliac side of the rightsacroiliac joint superiorly. A similar finding is noted on the left. Thesecould represent erosions or variant appearance. Their location at thesuperior aspect of the sacroiliac joints is less common for erosions associated with an inflammatory sacroiliitis.The inferior aspects of the sacroiliac joints are normal without erosions.There is no widening, narrowing, sclerosis, or ankylosis on either side.Iliac crest enthesophytes are noted. The hip joint spaces are normal. No displaced fracture is seen. Thepubic symphysis is normal. IMPRESSION IMPRESSION: 1. Right hand: Minimal degenerative change of the first carpal metacarpaljoint. 2. Left hand: Mild degenerative change of the first carpal metacarpaljoint. 3. Right knee: Osteoarthritis, severe in the medial compartment resultingin varus deformity, and an effusion. 4. Left knee: Osteoarthritis, severe in the medial compartment resultingin varus deformity, and an effusion. 5. Sacroiliac joints: Small cortical defects along the iliac sides of bothjoints superiorly which could represent erosions or a variant appearance.Their location at the superior aspect of the sacroiliac joints is lesscommon for erosions associated with an inflammatory sacroiliitis. This report was dictated by Neal Gonzalez M.D. (vice president of engineering). Dr. SUNDAR Howe MD have personally reviewed and interpreted thisexamination/study. This report was electronically signed by SUNDAR CEDILLO MD on08/13/2017 12:23 PM . Jennifer Nuñez MD DIAGNOSTIC CHENG GING ORDERABLES * XR HAND LEFT 2VW (08/13/2017 11:17 AM EQUIPMENT OPERATOR WAREHOUSE) Anatomical Region Laterality Modality Wrist / Hand Other Impressions 08/13/2017 12:23 PM EQUIPMENT OPERATOR WAREHOUSE IMPRESSION: 1. Right hand: Minimal degenerative change of the first carpal metacarpal joint. 2. Left hand: Mild degenerative change of the first carpal metacarpal joint. 3. Right knee: Osteoarthritis, severe in the medial compartment resulting in varus deformity, and an effusion. 4. Left knee: Osteoarthritis, severe in the medial compartment resulting in varus deformity, and an effusion. 5. Sacroiliac joints: Small cortical defects along the iliac sides of both joints superiorly which could represent erosions or a variant appearance. Their location at the superior aspect of the sacroiliac joints is less common for erosions associated with an inflammatory sacroiliitis. This report was dictated by Neal Gonzalez M.D. (vice president of engineering). Dr. SUDNAR Howe MD have personally reviewed and interpreted this examination/study. This report was electronically signed by SUNDAR CEDILLO MD ??on 08/13/2017 12:23 PM . Narrative 08/13/2017 12:23 PM EQUIPMENT OPERATOR WAREHOUSE EXAMINATION: 1. ??AP, lateral, and oblique radiographs of the sacroiliac joints. 2. ??AP & lateral radiographs of the right hand. 3. ??AP & lateral radiographs of the left hand. 4. ??AP & lateral radiographs of the right knee. 5. ??AP & lateral radiographs of the left knee. HISTORY: Arthralgias of multiple joints and low back pain. COMPARISON: ?None FINDINGS: Right hand: No fracture or dislocation is present. The joint spaces are normal. Small osteophyte formation is noted at the first carpometacarpal joint indicating early degenerative change. No erosions are seen. ??Bone density appears normal. ??The soft tissues are normal. Left hand: No fracture or dislocation is present. The joint spaces are normal. Osteophytes are noted at the first carpometacarpal joint consistent with mild degenerative change. No erosions are seen. ??Bone density appears normal. ??The soft tissues are normal. Right knee: No fracture or dislocation is seen. There is an effusion. There is osteoarthritis, greatest in the medial compartment where it is severe with abms-rh-kutc contact. This results in varus angulation of the knee. Tricompartmental osteophytes are noted. Subchondral cysts are seen, but no definite erosions are identified. Left knee: No fracture or dislocation is present. There is osteoarthritis, greatest in the medial compartment where it is severe with plqo-wv-nfpj contact. Tricompartmental osteophytes are seen. There is varus angulation of the knee due to the severe medial compartment involvement. An effusion is noted. No erosions are seen. Sacroiliac joints: A small cortical lucency is seen along the iliac side of the right sacroiliac joint superiorly. A similar finding is noted on the left. These could represent erosions or variant appearance. Their location at the superior aspect of the sacroiliac joints is less common for erosions associated with an inflammatory sacroiliitis. The inferior aspects of the sacroiliac joints are normal without erosions. There is no widening, narrowing, sclerosis, or ankylosis on either side. Iliac crest enthesophytes are noted. The hip joint spaces are normal. No displaced fracture is seen. The pubic symphysis is normal. Procedure Note Sundar Cedillo MD - 11/27/2017 EXAMINATION: 1. AP, lateral, and oblique radiographs of the sacroiliac joints. 2. AP & lateral radiographs of the right hand. 3. AP & lateral radiographs of the left hand. 4. AP & lateral radiographs of the right knee. 5. AP & lateral radiographs of the left knee. HISTORY: Arthralgias of multiple joints and low back pain. COMPARISON: None FINDINGS: Right hand: No fracture or dislocation is present. The joint spaces are normal. Smallosteophyte formation is noted at the first carpometacarpal jointindicating early degenerative change. No erosions are seen. Bone densityappears normal. The soft tissues are normal. Left hand: No fracture or dislocation is present. The joint spaces are normal.Osteophytes are noted at the first carpometacarpal joint consistent withmild degenerative change. No erosions are seen. Bone density appearsnormal. The soft tissues are normal. Right knee: No fracture or dislocation is seen. There is an effusion. There isosteoarthritis, greatest in the medial compartment where it is severe gmzdfidm-up-ioit contact. This results in varus angulation of the knee.Tricompartmental osteophytes are noted. Subchondral cysts are seen, but no definite erosions are identified. Left knee: No fracture or dislocation is present. There is osteoarthritis, greatestin the medial compartment where it is severe with jyhn-um-frnf contact.Tricompartmental osteophytes are seen. There is varus angulation of theknee due to the severe medial compartment involvement. An effusion is noted. No erosions are seen. Sacroiliac joints: A small cortical lucency is seen along the iliac side of the rightsacroiliac joint superiorly. A similar finding is noted on the left. Thesecould represent erosions or variant appearance. Their location at thesuperior aspect of the sacroiliac joints is less common for erosions associated with an inflammatory sacroiliitis.The inferior aspects of the sacroiliac joints are normal without erosions.There is no widening, narrowing, sclerosis, or ankylosis on either side.Iliac crest enthesophytes are noted. The hip joint spaces are normal. No displaced fracture is seen. Thepubic symphysis is normal. IMPRESSION IMPRESSION: 1. Right hand: Minimal degenerative change of the first carpal metacarpaljoint. 2. Left hand: Mild degenerative change of the first carpal metacarpaljoint. 3. Right knee: Osteoarthritis, severe in the medial compartment resultingin varus deformity, and an effusion. 4. Left knee: Osteoarthritis, severe in the medial compartment resultingin varus deformity, and an effusion. 5. Sacroiliac joints: Small cortical defects along the iliac sides of bothjoints superiorly which could represent erosions or a variant appearance.Their location at the superior aspect of the sacroiliac joints is lesscommon for erosions associated with an inflammatory sacroiliitis. This report was dictated by Neal Gonzalez M.D. (vice president of engineering). Dr. SUNDAR Howe MD have personally reviewed and interpreted thisexamination/study. This report was electronically signed by SUNDAR CEDILLO MD on08/13/2017 12:23 PM . Jennifer Nuñez MD DIAGNOSTIC [facility] ORDERABLES * XR SI JOINTS 2VW OR LESS (08/13/2017 11:17 AM EQUIPMENT OPERATOR WAREHOUSE) Anatomical Region Laterality Modality Pelvis, Lower Extremity Other Impressions 08/13/2017 12:23 PM EQUIPMENT OPERATOR WAREHOUSE IMPRESSION: 1. Right hand: Minimal degenerative change of the first carpal metacarpal joint. 2. Left hand: Mild degenerative change of the first carpal metacarpal joint. 3. Right knee: Osteoarthritis, severe in the medial compartment resulting in varus deformity, and an effusion. 4. Left knee: Osteoarthritis, severe in the medial compartment resulting in varus deformity, and an effusion. 5. Sacroiliac joints: Small cortical defects along the iliac sides of both joints superiorly which could represent erosions or a variant appearance. Their location at the superior aspect of the sacroiliac joints is less common for erosions associated with an inflammatory sacroiliitis. This report was dictated by Neal Gonzalez M.D. (vice president of engineering). Dr. SUNDAR Howe MD have personally reviewed and interpreted this examination/study. This report was electronically signed by SUNDAR CEDILLO MD ??on 08/13/2017 12:23 PM . Narrative 08/13/2017 12:23 PM EQUIPMENT OPERATOR WAREHOUSE EXAMINATION: 1. ??AP, lateral, and oblique radiographs of the sacroiliac joints. 2. ??AP & lateral radiographs of the right hand. 3. ??AP & lateral radiographs of the left hand. 4. ??AP & lateral radiographs of the right knee. 5. ??AP & lateral radiographs of the left knee. HISTORY: Arthralgias of multiple joints and low back pain. COMPARISON: ?None FINDINGS: Right hand: No fracture or dislocation is present. The joint spaces are normal. Small osteophyte formation is noted at the first carpometacarpal joint indicating early degenerative change. No erosions are seen. ??Bone density appears normal. ??The soft tissues are normal. Left hand: No fracture or dislocation is present. The joint spaces are normal. Osteophytes are noted at the first carpometacarpal joint consistent with mild degenerative change. No erosions are seen. ??Bone density appears normal. ??The soft tissues are normal. Right knee: No fracture or dislocation is seen. There is an effusion. There is osteoarthritis, greatest in the medial compartment where it is severe with xctb-lk-igyy contact. This results in varus angulation of the knee. Tricompartmental osteophytes are noted. Subchondral cysts are seen, but no definite erosions are identified. Left knee: No fracture or dislocation is present. There is osteoarthritis, greatest in the medial compartment where it is severe with cpbh-bf-zfvy contact. Tricompartmental osteophytes are seen. There is varus angulation of the knee due to the severe medial compartment involvement. An effusion is noted. No erosions are seen. Sacroiliac joints: A small cortical lucency is seen along the iliac side of the right sacroiliac joint superiorly. A similar finding is noted on the left. These could represent erosions or variant appearance. Their location at the superior aspect of the sacroiliac joints is less common for erosions associated with an inflammatory sacroiliitis. The inferior aspects of the sacroiliac joints are normal without erosions. There is no widening, narrowing, sclerosis, or ankylosis on either side. Iliac crest enthesophytes are noted. The hip joint spaces are normal. No displaced fracture is seen. The pubic symphysis is normal. Procedure Note Sundar Cedillo MD - 11/27/2017 EXAMINATION: 1. AP, lateral, and oblique radiographs of the sacroiliac joints. 2. AP & lateral radiographs of the right hand. 3. AP & lateral radiographs of the left hand. 4. AP & lateral radiographs of the right knee. 5. AP & lateral radiographs of the left knee. HISTORY: Arthralgias of multiple joints and low back pain. COMPARISON: None FINDINGS: Right hand: No fracture or dislocation is present. The joint spaces are normal. Smallosteophyte formation is noted at the first carpometacarpal jointindicating early degenerative change. No erosions are seen. Bone densityappears normal. The soft tissues are normal. Left hand: No fracture or dislocation is present. The joint spaces are normal.Osteophytes are noted at the first carpometacarpal joint consistent withmild degenerative change. No erosions are seen. Bone density appearsnormal. The soft tissues are normal. Right knee: No fracture or dislocation is seen. There is an effusion. There isosteoarthritis, greatest in the medial compartment where it is severe gjfzxazf-mi-dlbe contact. This results in varus angulation of the knee.Tricompartmental osteophytes are noted. Subchondral cysts are seen, but no definite erosions are identified. Left knee: No fracture or dislocation is present. There is osteoarthritis, greatestin the medial compartment where it is severe with kzck-eh-eswm contact.Tricompartmental osteophytes are seen. There is varus angulation of theknee due to the severe medial compartment involvement. An effusion is noted. No erosions are seen. Sacroiliac joints: A small cortical lucency is seen along the iliac side of the rightsacroiliac joint superiorly. A similar finding is noted on the left. Thesecould represent erosions or variant appearance. Their location at thesuperior aspect of the sacroiliac joints is less common for erosions associated with an inflammatory sacroiliitis.The inferior aspects of the sacroiliac joints are normal without erosions.There is no widening, narrowing, sclerosis, or ankylosis on either side.Iliac crest enthesophytes are noted. The hip joint spaces are normal. No displaced fracture is seen. Thepubic symphysis is normal. IMPRESSION IMPRESSION: 1. Right hand: Minimal degenerative change of the first carpal metacarpaljoint. 2. Left hand: Mild degenerative change of the first carpal metacarpaljoint. 3. Right knee: Osteoarthritis, severe in the medial compartment resultingin varus deformity, and an effusion. 4. Left knee: Osteoarthritis, severe in the medial compartment resultingin varus deformity, and an effusion. 5. Sacroiliac joints: Small cortical defects along the iliac sides of bothjoints superiorly which could represent erosions or a variant appearance.Their location at the superior aspect of the sacroiliac joints is lesscommon for erosions associated with an inflammatory sacroiliitis. This report was dictated by Neal Gonzalez M.D. (vice president of engineering). Dr. SUNDAR Howe MD have personally reviewed and interpreted thisexamination/study. This report was electronically signed by SUNDAR CEDILLO MD on08/13/2017 12:23 PM . Jennifer Nuñez MD DIAGNOSTIC [facility] ORDERABLES * XR LUMBAR SPINE 2 OR 3VW (08/13/2017 11:17 AM EQUIPMENT OPERATOR WAREHOUSE) Anatomical Region Laterality Modality Spine Other Impressions 08/13/2017 3:18 PM EQUIPMENT OPERATOR WAREHOUSE IMPRESSION: 2 mm of anterolisthesis of L4 on L5 with moderate degenerative disc disease at L5-S1. Report dictated by Dakota Aquino M.D. (vice president of engineering) Dr. Satya Howe M.D. have personally reviewed and interpreted this examination/study. This report was electronically signed by Satya GAR M.D. ??on 08/13/2017 3:18 PM . Narrative 08/13/2017 3:18 PM EQUIPMENT OPERATOR WAREHOUSE EXAMINATION: XR SPINE LUMBAR 2 OR 3 VW HISTORY: low back pain FINDINGS: No prior study is available for comparison at the time of this dictation. There is 2 mm of anterolisthesis of L4 on L5. The vertebral body heights are normal. There is moderate L5-S1 degenerative disease. The sacroiliac joints are normal. Procedure Note Nedra Gar MD - 11/27/2017 EXAMINATION: XR SPINE LUMBAR 2 OR 3 VW HISTORY: low back pain FINDINGS: No prior study is available for comparison at the time of thisdictation. There is 2 mm of anterolisthesis of L4 on L5. The vertebral body heightsare normal. There is moderate L5-S1 degenerative disease. The sacroiliacjoints are normal. IMPRESSION IMPRESSION: 2 mm of anterolisthesis of L4 on L5 with moderate degenerative discdisease at L5-S1. Report dictated by Dakota Aquino M.D. (vice president of engineering) Dr. Satya Howe M.D. have personally reviewed and interpreted thisexamination/study. This report was electronically signed by Satya GAR M.D. on08/13/2017 3:18 PM . Jennifer Nuñez MD DIAGNOSTIC [facility] ORDERABLES Care Teams Pump Installation And Servicer Relationship Specialty Start Date End Date Demetrio Morgan MD [address] [address] PCP - General 03/27/15
--- OUTSIDE RECORDS SUMMARY | 2024-09-24 19:47 | XMS_ITS | Referral Summary ---
Author Organization [facility] Address [address] [place] [address] Care Team Providers Care Trailer Driver Name Role Phone Demetrio Morgan MD Primary Care Prov ider Allergies Active Allergy Reactions Criticality Noted Date Comments Ciprofloxacin Muscle pain Medium 06/21/2019 Codeine Headache,Other (See comments) Low 08/13/2017 SEVERE MIGRAINE Severe migraines. Levofloxacin Muscle pain Medium 02/09/2020 Naproxen Swollen tongue,Anaphylaxis High 04/18/2019 Nickel Rash Medium 06/02/2019 Cheap Metals Phenobarbital Other (See comments) Low 08/13/2017 SEIZURES Made seizures worse Medications busPIRone (BUSPAR) 15 mg tabletIndicatio ns:Generalized Anxiety Disorder Take 22.5 mg by mouth 2 (two) times a day 1.5 tablets BID 08/13/[address] (DEPAKOTE) 250 mg EC tabletIndicatio ns:Bipolar Disorder Take 500 mg by mouth 2 (two) times a day 08/13/20 17 Active furosemide (LASIX) 20 mg tabletIndicatio ns:Edema Take 80 mg by mouth as needed Active rOPINIRole (REQUIP) 1 mg tabletIndicatio ns:Restless Legs Syndrome Take 2 mg by mouth nightly Active pregabalin (LYRICA) 150 mg capsuleIndicati ons:Fibromyalgi a Take 150 mg by mouth 2 (two) times a day Active metoprolol (LOPRESSOR) 50 mg tabletIndicatio ns:hypertension Take 50 mg by mouth 2 (two) times a day Activ e sertraline (ZOLOFT) 100 mg tabletIndicatio ns:Anxiety with Depression,depr ession Take 100 mg by mouth every morning Activ e buPROPion XL (WELLBUTRIN XL) 300 mg 24 hr tabletIndicatio ns:Anxiety with Depression Take 300 mg by mouth every morning Activ e armodafiniL (NUVIGIL) 250 mg tablet Take 250 mg by mouth every morning Activ e albuterol HFA (PROVENTIL HFA,VENTOLIN HFA,PROAIR HFA) 90 mcg/actuation inhaler Inhale 2 puffs every 6 (six) hours as needed for wheezing Active nortriptyline (PAMELOR) 25 mg capsuleIndicati ons:headaches Take 25 mg by mouth nightly Active omeprazole (PriLOSEC) 20 mg capsuleIndicati ons:Treatment of Non-Bleeding Gastric Disorder Take 20 mg by mouth nightly Active metOLazone (ZAROXOLYN) 5 mg tablet Take 5 mg by mouth every morning With lasix Active potassium chloride ER (KLOR-CON) 10 mEq CR tabletIndicatio ns:hypokalemia prevention Take 10 mEq by mouth as needed Take with Lasix Active celecoxib (CeleBREX) 200 mg capsuleIndicati ons:Osteoarthri tis,Postoperati ve Acute Pain Take 1 tablet twice daily after surgery until prescription is finished. You should already have this prescription at home. 10 capsule 03/01/20 20 Active senna-docusate (PERICOLACE) 8.6-50 mgIndications:c onstipation Take 2 tablets by mouth 2 (two) times a day May increase to 4 tablets twice daily if needed. HOLD medication for diarrhea. 80 tablet 1 03/01/20 20 Active apixaban (ELIQUIS) 2.5 mg tabletIndicatio ns:VTE Prophylaxis Take 1 tablet (2.5 mg total) by mouth 2 (two) times a day 60 tablet 03/01/20 20 Active oxyCODONE-aceta minophen (PERCOCET) 10-325 mg per tablet Take 1 tablet by mouth every 4 (four) hours as needed for pain 04/10/20 23 Active traZODone (DESYREL) 150 mg tablet Take 1 tablet (150 mg total) by mouth nightly at bedtime. 02/28/20 23 Active EPINEPHrine 0.3 mg/0.3 mL auto-injection syringe INJECT 0.3 MG (0.3 ML) INTRAMUSCULARLY ONCE A SINGLE DOSE MAY REPEAT ONCE 04/02/20 Active Active Problems Problem Noted Date Diagnosed Date Anxiety with depression 09/21/2019 Primary osteoarthritis of right knee 07/21/2019 Overview (07/21/2019): Added automatically from request for surgery [id number] ADHD 06/13/2019 GERD (gastroesophageal reflux disease) 9 HTN (hypertension) 06/13/2019 Class 2 obesity in adult 06/13/2019 TAIWO (obstructive sleep apnea) 06/13/2019 Fibromyalgia 06/13/2019 COPD (chronic obstructive pulmonary disease) Primary osteoarthritis of left knee 05/23/2019 Overview (05/23/2019): Added automatically from request for surgery [id number] Immunizations Name Administration Dates Next Due Influenza, Quadrivalent, Spl it, Preservative Free, Intramuscular 06/21/2019 Social History Tobacco Use Types Packs/Day Years Used Date Smoking Tobacco: Former Cigarettes 1.5 30 1 992018 Smokeless Tobacco: Never Comments:1.5 - 2 packs per d ay Alcohol Use Standard Drinks/Week Comments Not Currently 0 (1 standard drink = 0.6 oz pur e alcohol) rare AUDIT-C Answer Date Recorded Frequency of Alcohol Consumption Never 04/18/2019 Average Number of Drinks Not on file 019 Frequency of Binge Drinking Not on file 03/31 Comments No Sex and Gender Information Value Date Recorded Sex Assigned at Not on file Legal Sex Female 9:53 PM COPPING MACHINE OPERATOR Gender Identity Female 01/24/2020 10:39 AM CDT Sexual Orientation Bisexual 01/24/2020 10 :39 AM CDT Last Filed Vital Signs Vital Sign Reading Time Taken Comments Blood Pressure 142/86 03/01/2020 7:20 AM CDT Pulse 70 03/01/2020 7:20 AM CDT Temperature 36.4 ??C (97.6 ??F) 03/01/2020 7:20 AM CD T Respiratory Rate 16 03/01/2020 7:20 AM CDT Oxygen Saturation 99% 03/01/2020 7:20 AM CDT Inhaled Oxygen Concentration - - Weight 90.3 kg (199 lb) 07/29/2023 9:30 AM COPPING MACHINE OPERATOR Height 154.9 cm (5' 1 ) 07/29/2023 9:30 AM COPPING MACHINE OPERATOR Body Mass Index 37.6 07/29/2023 9:30 AM COPPING MACHINE OPERATOR Plan of Treatment Not on file Medical Devices Implanted Type Area Petroleum Terminal Plant Operator Device Identifier Shelf Expiration Date Model / Serial / Lot [employer] 3122-040 Smartset Medium Viscosity Cement 40gm Bone Sterile - Sn/A - [id number] Implanted:Qty: 1 on 02/29/2020 by Delta Mejia MD at [facility] Bone Cement Right: Knee [employer] 03/30/2021 3122-040 / N/A / [id number] [employer] [id number] Smartset Medium Viscosity Cement 40gm Bone Gentamicin - Sn/A - [id number] Implanted:Qty: 1 on 02/29/2020 by Delta Mejia MD at [facility] Bone Cement Right: Knee [employer] 12/28/2020 [id number] / N/A / [id number] [employer] rtho [id number] Legion Cruciate Retain Knee Right 4n Narrow Component Femoral - Sn/A - [id number] Implanted:Qty: 1 on 02/29/2020 by Delta Mejia MD at [facility] Other - see comments Right: Knee [employer]/ Ortho [id number] 12/30/2028 [id number] / N/A / [id number] [employer] rtho [id number] Ila Ii Cement Right Knee 3 Baseplate Tibial Titanium - Sn/A - [id number] Implanted:Qty: 1 on 02/29/2020 by Delta Mejia MD at [facility] Other - see comments Right: Knee [employer]/ Ortho [id number] 12/13/2028 [id number] / N/A / [id number] [employer]/O rtho [id number] Legion 13mm Dished Knee 3-4 Insert Tibial Xlpe - Sn/A - [id number] Implanted:Qty: 1 on 02/29/2020 by Delta Mejia MD at [facility] Other - see comments Right: Knee [employer]/ Ortho [id number] 11/22/2027 [id number] / N/A / [id number] [employer]O r[employer]o [id number] Ila Ii Left Knee 3 Baseplate Tibial Titanium Nonporous - [id number] Implanted:Qty: 1 on 06/21/2019 by Delta Mejia MD at [facility] Left: Knee [employer]/ Ortho [id number] 09/13/2028 [id number] / / [id number] [employer]O rtho [id number] Legion Cruciate Retain Knee Left 4n Narrow Component Femoral - [id number] Implanted:Qty: 1 on 06/21/2019 by Delta Mejia MD at [facility] Left: Knee [employer]/ Ortho [id number] 04/03/2029 [id number] / / [id number] [employer]/O rtho [id number] Legion 15mm Dished Knee 3-4 Insert Tibial Xlpe - [id number] Implanted:Qty: 1 on 06/21/2019 by Delta Mejia MD at [facility] Left: Knee [employer]/ Ortho [id number] 07/24/2028 [id number] / / [id number] [employer] [id number] Smartset Medium Viscosity Cement 40gm Bone Gentamicin - [id number] Implanted:Qty: 1 on 06/21/2019 by Delta Mejia MD at [facility] Left: Knee [employer] 09/30/2020 [id number] / / [id number] [employer] 3122-040 Smartset Medium Viscosity Cement 40gm Bone Sterile - [id number] Implanted:Qty: 1 on 06/21/2019 by Delta Mejia MD at [facility] Left: Knee [employer] [id number] 09/30/2020 3122-040 / / [id number] Insurance [facility] CON [facility] GOLD REF [place] [facility] ADVANTAGE CON Advance Directives For more information, please contact: [phone] * Full Code (Latest Code Status on File) Date Activated Date Inactivated Comments 02/29/2020 12:37 PM 03/01/2020 2:32 PM * Full Code Date Activated Date Inactivated Comments 06/21/2019 1:02 PM 06/22/2019 4:36 PM Care Teams Trailer Driver Relationship Specialty Start Date End Date Demetrio Morgan MD [address] [place] [address] PCP - General 10/09/17
--- OUTSIDE RECORDS SUMMARY | 2024-09-24 19:47 | XMS_ITS | Clinical Summary ---
Author Organization [facility] Address [address] [place] [address] Care Team Providers Care Zoo Veterinarian Name Role Phone Demetrio Morgan MD Primary [...] (07/21/2019): Added automatically from request for surgery [id number] ADHD 06/13/2019 GERD (gastroesophageal reflux disease) 9 HTN (hypertension) 06/13/2019 Class 2 obesity in adult 06/13/2019 TAIWO (obstructive sleep apnea) 06/13/2019 Fibromyalgia 06/13/2019 COPD (chronic obstructive pulmonary disease) Primary osteoarthritis of left knee 05/23/2019 Overview (05/23/2019): Added automatically from request for surgery [id number] Immunizations Name Administration Dates Next Due Influenza, Quadrivalent, Spl it, Preservative Free, Intramuscular 06/21/2019 Surgical History Surgery Date Site/Laterality Comments CHOLECYSTECTOMY EAR SURGERY Left ear drum surgery MYRINGOTOMY W/ TUBES Bilateral TONSILLECTOMY AND ADENOIDECTOMY OVARIAN CYST SURGERY HYSTERECTOMY 08/31/2015 - 08/30/2016 REPLACEMENT TOTAL KNEE 06/21/2019 Left Medical History Medical History Date Comments ADHD (attention deficit hyperactivity disorder) Anxiety Arthritis Depression GERD (gastroesophageal reflux disease) COPD (chronic obstructive pulmonary disease) (HC C) Hypertension Obesity Osteoarthritis Fibromyalgia Chronic pain Sleep apnea PONV (postoperative nausea and vomiting) Gastric reflux Migraines Family History Medical History Relation Name Comments Alcohol abuse Brother Hypertension Brother Mental illness Brother Alcohol abuse Father Arthritis Father Hypertension Father Arthritis Mother Blood Clot Mother Cancer Mother Clotting disorder Mother Heart disease Mother Hypertension Mother Mental illness Mother Anesthesia problems Neg Hx Relation Name Status Comments Brother Father Alive Mother Alive Social History Tobacco Use Types Packs/Day Years Used Date Smoking Tobacco: Former Cigarettes 1.5 30 1 2018 Smokeless Tobacco: Never Comments:1.5 - 2 packs [...] on file Legal Sex Female 9:53 PM IN[employer] AGENT Gender Identity Female 01/24/2020 10:39 AM CDT Sexual Orientation Bisexual 01/24/2020 10 :39 AM CDT Obstetrics History Last Filed Vital Signs Vital Sign Reading Time Taken Comments Blood Pressure 142/86 03/01/2020 7:20 AM CDT Pulse 70 03/01/2020 7:20 AM CDT Temperature 36.4 ??C (97.6 ??F) 03/01/2020 7:20 AM CD T Respiratory Rate 16 03/01/2020 7:20 AM CDT Oxygen Saturation 99% 03/01/2020 7:20 AM CDT Inhaled Oxygen Concentration - - Weight 90.3 kg (199 lb) 07/29/2023 9:30 AM INBOUND CALL CENTER AGENT Height 154.9 cm (5' 1 ) 07/29/2023 9:30 AM INBOUND CALL CENTER AGENT Body Mass Index 37.6 07/29/2023 9:30 AM INBOUND CALL CENTER AGENT Plan of Treatment Health Maintenance Due Date Last Done Comments Breast Cancer Screening-Mammogram 1974 Colon Cancer Screening-Colonoscopy 1974 Depression Screening 1974 Hepatitis C Screening 1974 Pneumococcal vaccine <65 (1 of 2 - PCV) 1980 DTaP/Tdap/Td Vaccine (1 - Tdap) 1985 Hepatitis B Screening 1992 Regular Well Visit/Exam 18-64 1992 Lung Cancer Screening 2024 Zoster Vaccine (1 of 2) 2024 Influenza Vaccine (#1) 2024 05/13/2023, 2018 Medical Devices Implanted Type Area Rectangular Tank Cooper Device Identifier Shelf Expiration Date Model / Serial / Lot [employer] 3122-040 Smartset Medium Viscosity Cement 40gm Bone Sterile - Sn/A - [id number] Implanted:Qty: 1 on 02/29/2020 by Delta Mejia MD at [facility] Bone Cement Right: Knee [employer] 03/30/2021 3122-040 / N/A / [id number] [employer] [id number] Smartset Medium Viscosity Cement 40gm Bone Gentamicin - Sn/A - [id number] Implanted:Qty: 1 on 02/29/2020 by Delta Mejia MD at [facility] Bone Cement Right: Knee [employer] 12/28/2020 [id number] / N/A / [id number] [employer]/O rtho [id number] Legion Cruciate Retain Knee Right 4n Narrow Component Femoral - Sn/A - [id number] Implanted:Qty: 1 on 02/29/2020 by Delta Mejia MD at [facility] Other - see comments Right: Knee [employer]/ Ortho [id number] 12/30/2028 [id number] / N/A / [id number] [employer]/O rtho [id number] Ila Ii Cement Right Knee 3 Baseplate Tibial Titanium - Sn/A - [id number] Implanted:Qty: 1 on 02/29/2020 by Delta Mejia MD at [facility] Other - see comments Right: Knee [employer]/ Ortho [id number] 12/13/2028 [id number] / N/A / [id number] [employer]/O rtho [id number] Legion 13mm Dished Knee 3-4 Insert Tibial Xlpe - Sn/A - [id number] Implanted:Qty: 1 on 02/29/2020 by Delta Mejia MD at [facility] Other - see comments Right: Knee [employer]/ Ortho [id number] 11/22/2027 [id number] / N/A / [id number] [employer]/O rtho [id number] Ila Ii Left Knee 3 Baseplate Tibial Titanium Nonporous - [id number] Implanted:Qty: 1 on 06/21/2019 by Delta Mejia MD at [facility] Left: Knee [employer]/ Ortho [id number] 09/13/2028 [id number] / / [id number] [employer]/O rtho [id number] Legion Cruciate Retain Knee Left 4n Narrow Component Femoral - [id number] Implanted:Qty: 1 on 06/21/2019 by Delta Mejia MD at [facility] Left: Knee [employer]/ Ortho [id number] 04/03/2029 [id number] / / [id number] [employer]/O rtho [id number] Legion 15mm Dished Knee 3-4 Insert Tibial Xlpe - [id number] Implanted:Qty: 1 on 06/21/2019 by Delta Mejia MD at [facility] Left: Knee [employer]/ Ortho [id number] 07/24/2028 [id number] / / [id number] Dep[employer] [id number] Smartset Medium Viscosity Cement 40gm Bone Gentamicin - [id number] Implanted:Qty: 1 on 06/21/2019 by Delta Mejia MD at [facility] Left: Knee [employer] 09/30/2020 [id number] / / [id number] [employer] 3122-040 Smartset Medium Viscosity Cement 40gm Bone Sterile - [id number] Implanted:Qty: 1 on 06/21/2019 by Delta Mejia MD at [facility] Left: Knee [employer] [id number] 09/30/2020 3122-040 / / [id number] Insurance [facility] GOLD ADVANTAGE CON AETNA [facility] GOLD REF COVENTRY ADVANTRA GOLD ADVANTAGE CON AETNA MCR ADVANTRA Advance Directives For more information, please contact: [phone] * Full Code (Latest Code Status on File) Date Activated Date Inactivated Comments 02/29/2020 12:37 PM 03/01/2020 2:32 PM * Full Code Date Activated Date Inactivated Comments 06/21/2019 1:02 PM 06/22/2019 4:36 PM Care Teams Zoo Veterinarian Relationship Specialty Start Date End Date Demetrio Morgan MD [address] [place] [address] PCP - General 10/09/17
--- OUTSIDE RECORDS SUMMARY | 2024-09-24 19:47 | XMS_ITS | Clinical Summary ---
Author Organization [facility] Address [address] [place] [address] Phone Care Team Providers Care Risk Investigator Name Role Phone Demetrio Morgan MD Primary Care Provider + Allergies Active Allergy Reactions Criticality Noted Date Comments Codeine Other (see Comments) 04/02/2021 Severe migraines. Naproxen Anaphylaxis 04/02/2021 Phenobarbital Other (see Comments) 04/02/2021 Made seizures worse Medications pregabalin (Lyrica) 150 MG Capsule Take 150 mg by mouth 2 times daily. Active sulindac (CLINORIL) 200 MG Tablet Take 200 mg by mouth 2 times daily. Active metoprolol tartrate (LOPRESSOR) 50 MG Tablet Take 50 mg by mouth 2 times daily. Active divalproex (Depakote) 500 MG Tablet Delayed Response Take 500 mg by mouth daily. Active venlafaxine (Effexor XR) 150 MG CAPSULE SR 24 HR Take 150 mg by mouth daily. Active omeprazole (PriLOSEC) 20 MG CAPSULE DELAYED RELEASE Take 20 mg by mouth 2 times daily. Active estradiol (ESTRACE) 1 MG Tablet Take 1 mg by mouth daily. Hazardous: Medication requires special safe handling and disposal. Active atorvastatin (LIPITOR) 20 MG Tablet Take 20 mg by mouth daily. Active oxyCODONE-Aceta minophen (Percocet) 10-325 MG Tablet Take 1 Tablet by mouth every 4 hours as needed. Active ibuprofen (MOTRIN) 600 MG Tablet Take 1 Tablet by mouth every 6 hours as needed for Moderate or more severe pain or Fever. 60 Tablet Active Social History Tobacco Use Types Packs/Day Years Used Date Smoking Tobacco: Every Day Cigarettes Smokeless Tobacco: Never Alcohol Use Standard Drinks/Week Comments Never 0 (1 standard drink = 0.6 oz pur e alcohol) Comments No Sex and Gender Information Value Date Recorded Sex Assigned at Not on file Legal Sex Female 9:51 PM CDT Gender Identity Not on file Sexual Orientation Not on file Last Filed Vital Signs Vital Sign Reading Time Taken Comments Blood Pressure 133/77 04/02/2021 1:56 AM CDT Pulse 78 04/02/2021 1:56 AM CDT Temperature 36.3 ??C (97.3 ??F) 04/02/2021 1:56 AM CD T Respiratory Rate 18 04/02/2021 1:56 AM CDT Oxygen Saturation 98% 04/02/2021 1:56 AM CDT Inhaled Oxygen Concentration - - Weight 84.8 kg (187 lb) 04/02/2021 12:22 AM CDT Height 154.9 cm (5' 1 ) 04/02/2021 12:22 AM CDT Body Mass Index 35.33 04/02/2021 12:22 AM CDT Plan of Treatment Health Maintenance Due Date Last Done Comments Hepatitis C Virus (HCV) Screening 1974 TdaP Immunization 1974 Hepatitis B Immunization (1 of 3 - 19+ 3-dose series) 1993 Colonoscopy 2019 Colorectal Cancer Screening 2019 Cologuard 2024 Immunochemical Fecal Occult Blood 2024 Mammogram 2024 Pneumococcal Immunization (5 0+ years) (1 of 1 - PCV) 2024 Zoster Immunization (1 of 2) 2024 Influenza Immunization (#1) 2024 SARS-COV-2 Immunization ( - 2023-25 season) 2024 Respiratory Syncytial Virus (RSV) Immunization (Adult) (1 - 1-dose 75+ series) 2049 Meningococcal Immunization (ACWY) Aged Out No longer eligible based on patient's age to complete this topic Pneumococcal Immunization Combined Aged Out No longer eligible based on patient's age to complete this topic Rotavirus Immunization Aged Out No lo nger eligible based on patient's age to complete this topic Insurance MEDICARE C AETNA Care Teams Risk Investigator Relationship Specialty Start Date End Date Demetrio Morgan MD [address] [place] [address] PCP - General Family Medicine 04/02/21
--- NOTE | 2024-09-30 19:31 | WPDSLEEPSTUD ---
Sleep Study Date of Study: 09/24/24 Ordering Provider: Delta Joseph APRN Interpreting Physician: Sylwia Johnson MD Sleep Study Type: Polysomnogram Height: 1.55 m Weight: 90.718 kg Body Mass Index: 37.8 Neck Circumference (inches): 15.5 [place]: 11 Reason for Sleep Study Hypersomnolence History of obstructive sleep apnea, has used CPAP and sleep medication in the past * 02/09/2022, home sleep test using black stone, severe obstructive sleep apnea, AHI 35.3, lowest O2 saturation 77% * 10/26/2019, PSG, mild obstructive sleep apnea, AHI 5.2, more severe during supine REM 55.4. CPAP titration Sleep History Barbara Stewart is a 49-year-old woman with fatigue on waking and low energy for at least 6 years. She has a history of obstructive sleep apnea, and she has worn CPAP and has used sleeping aids in the past. She has medical comorbidities including depression, anxiety, bipolar illness, hypertension, acid reflux, fibromyalgia, COPD, arthritis.. She never awakens from sleep short of breath. She occasionally wakes at night with heartburn, belching or coughing.??She frequently snores, occasionally snores loudly enough that others complain. She constantly has trouble sleeping when she has a cold. She never wakes up gasping for breath during the night. She occasional has breathing problems at night reported to her by others. She frequently sweats excessively at night. She never notices her heart pounding or beating irregularly during the night. She constantly falls asleep during the day. She however does not fall asleep involuntarily, never falls asleep while driving. She never experiences loss of muscle tone with strong emotion. She never feels paralyzed on waking or falling asleep. She rarely experiences vivid dreams upon waking or falling asleep. She never feels afraid of going to sleep. She occasional has nightmares. She frequent recalls her dreams. She constantly has thoughts racing through her mind. She frequently feels sad or depressed. She frequently feels anxiety. She occasionally notices parts of her body jerk. She occasional kicks during the night. She frequently feels crawling or aching feelings in her legs. She constant feels leg pain at night. She never has morning jaw pain, and never grinds her teeth at night. She constantly feels bothered by pain during the day, is constantly awakened by pain during the night. She always wakes up feeling stiff in the morning, constantly wakes feeling sore or achy in the morning. She always awakens with pain in her neck, spine, or joints. Normal bedtime is 10:00 p.m., falling asleep within 20 minutes, waking twice during the night for a few minutes, goes to the bathroom, smokes a cigarette and gets a drink before returning to bed. These awakenings occur in the middle of the night. She wakes at 3:00 a.m., reports getting 4-6 hours of sleep per night. On weekends, bedtime is later, 12 midnight, her wake time is variable. She often stays in bed most of the day. She takes naps during the day. A short nap lasting 10-15 minutes is usually not refreshing. She is usually drowsy for 3 hours after waking. She frequently awakens with morning headaches. Habits:??Tobacco: 1 pack per day Caffeine: 5 servings per day Alcohol: None Recreational substances: Medical cannabis PMFSH Past Medical History Medical History Ventral hernia without obstruction or gangrene Gastro-esophageal reflux disease without esophagitis Obstructive sleep apnea (adult) (pediatric) Generalized anxiety disorder Mixed hyperlipidemia Major depressive disorder, recurrent, moderate Chronic use of opiate drug for therapeutic purpose Arthritis of carpometacarpal (CMC) joint of right thumb Depression Fibromyalgia IBS (irritable bowel syndrome) GERD (gastroesophageal reflux disease) HTN (hypertension) Surgical History Surgical History H/O ventral hernia repair lap ventral hernia repair 01/16/22 H/O knee surgery left tka 2018, Dr. mccauley right tka 2019, Dr. mccauley H/O: hysterectomy H/O laparoscopy History of cholecystectomy History of tonsillectomy History of ear surgery Lt typanoplasty Family History Family History Father Heart disease Hypertension Mother Heart disease Hypertension Melanoma Other Cerebrovascular accident Family history of arthritis Family history of cardiovascular disease Family history of malignant neoplasm Family history of mental disorder Social History Social History Social History: Caffeine-daily Smoking packs per day: 0.75 Smoking cigarettes per day: 15.0 Years smoked: 20 Smoking pack-years: 15.00 Smoking status: Current every day smoker Tobacco type: cigarettes and e-cigarettes/vaping Second hand tobacco smoke exposure: Yes Alcohol intake: never Substance use: current Substance use type: marijuana Other substance usage details: medical marijuana Do You Feel Safe in your Home?: Yes Lack of Transportation: No Lack of Food: Never True Current Housing: I Have Housing Concerned About Future Housing: No Difficulty Paying Gas/Electric Bills: No Difficulty Paying for Meds: No Currently Unemployed: No Education: High School Diploma/GED Difficulty w/ Childcare or Family Care: No Living arrangements: with family Occupation/Education: unemployed Additional occupation/education comments: disabled Gender identity (if verbalized by the patient): Female Sexual Orientation (if Verbalized by the Patient): Straight or Heterosexual Spiritual care concerns: No Agree to blood products: Yes Medications Home Medications ?Medication ?Instructions ?Recorded ?Confirmed ?Type epinephrine 0.3 mg/0.3 mL 0.3 mg (0.3 mL) IM ONCE #2 ea 01/06/23 07/18/24 Rx injection, auto-injector (EpiPen 2-Kirk) lorazepam 0.5 mg tablet 0.5 mg PO TID PRN anxiety #60 tabs 02/02/23 07/18/24 Rx baclofen 10 mg tablet 10 mg PO TID PRN muscle spasm #20 07/31/23 07/18/24 Rx tabs trazodone 150 mg tablet See Rx Instructions .Route 09/28/23 07/18/24 Rx .COMPLEX #90 tabs metoprolol tartrate 50 mg tablet 50 mg PO BID #180 tabs 01/08/24 07/18/24 Rx estradiol 0.5 mg tablet See Rx Instructions .Route 05/10/24 07/18/24 Rx .COMPLEX #90 tabs sertraline 100 mg tablet See Rx Instructions .Route 05/15/24 07/18/24 Rx .COMPLEX #90 tabs pregabalin 150 mg capsule 150 mg PO BID #180 caps 05/26/24 07/18/24 Rx atorvastatin 40 mg tablet See Rx Instructions .Route 06/03/24 07/18/24 Rx .COMPLEX #90 tabs mirabegron 25 mg tablet,extended See Rx Instructions .Route 06/05/24 07/18/24 Rx release 24 hr (Myrbetriq) .COMPLEX #90 tabs bupropion HCl 300 mg 24 hr tablet, See Rx Instructions .Route 06/08/24 07/18/24 Rx extended release .COMPLEX #90 tabs sulindac 200 mg tablet See Rx Instructions .Route 06/10/24 07/18/24 Rx .COMPLEX #60 tabs cariprazine 1.5 mg capsule 1.5 mg PO DAILY #90 caps 07/13/24 07/18/24 Rx (Vraylar) albuterol sulfate 90 mcg/actuation 1 - 2 inh inhalation Q4-6H PRN 07/18/24 07/18/24 Rx aerosol inhaler shortness of breath or wheezing #8.5 grams eszopiclone 2 mg tablet 2 mg PO ONCE #1 tablet 07/18/24 07/18/24 Rx nicotine (polacrilex) 2 mg buccal 2 mg buccal Q2-4H PRN nicotine 07/18/24 07/18/24 Rx lozenge cravings #108 ea nicotine See Rx Instructions transdermal 07/18/24 07/18/24 Rx 21mg/24hr-14mg/24hr-7mg/24hr daily .COMPLEX #56 patches transderm patches,sequentl oxycodone-acetaminophen 10 mg-325 1 tablet PO Q4H PRN pain #150 tabs 09/06/24 Rx mg tablet Sleep Procedure A full night polysomnogram using the [employer] multi-channel system recorded the standard physiologic parameters including EEG, EOG, submentalis EMG, anterior tibialis EMG, EKG, body position, nasal and oral airflow using nasal pressure sensor and thermistor. Respiratory parameters of chest and abdominal movements were recorded with Respiratory Inductance Plethysmography belts. Oxygen saturation was recorded by pulse oximetry. Video monitoring was also performed. Sleep stages, periodic limb movements, and EEG arousals were scored in 30 second epochs according to the criteria of the AASM Scoring Manual. The Apnea-Hypopnea Index was calculated using CMS guidelines for definition of hypopnea while scoring respiratory events. The patient self administered as zopiclone 2 mg at the beginning of the study. Sleep Architecture The total recording time was 488.3 minutes. The total sleep time was 447.5 minutes. Sleep latency was 16.6 minutes. REM latency was 115.5 minutes. Sleep efficiency was 91.7%. The patient had 20 awakenings for an awakening index of 2.7. Wake after sleep onset time was 24.0 minutes. The patient spent 25.0 minutes, 5.6% of total sleep time in Stage N1. The patient spent 219.0 minutes, 48.9% in Stage N2. The patient spent 55.5 minutes, 12.4% in Stage N3. The patient spent 148.0 minutes, 33.1% in Stage REM sleep. Respiratory Analysis The patient had 9 hypopneas, no obstructive apneas, no mixed apneas, and no central apneas for an overall Apnea Hypopnea Index of 1.2. The REM Apnea Hypopnea Index was 6.5. The NREM Apnea Hypopnea Index was 1.2. The patient had a Central Apnea Hypopnea Index of 0. There were no Respiratory Effort Related Arousals. The Respiratory Disturbance Index is 3.5 events per hour. There was no evidence of Demetrius-Bowden Respirations. Arousals There were 103 total arousals for an arousal index of 13.8. There were 54 spontaneous arousals for an index of 7.2. There were 10 arousals due to respiratory events for an index of 1.3. There were 2 arousals due to periodic limb movements for an index of 0.3. There were 34 arousals due to isolated limb movements for an index of 4.6. Periodic Limb Movements The patient had 44 isolated limb movements with an index of 5.9. The patient had 5 periodic limb movements with an index of 0.7. Patient had a total of 49 limb movements with a total limb movement index of 6.6. Oximetry Data The patient had an average oxygen saturation of 91.6% in sleep with a minimum oxygen saturation of 86.0% and a maximum oxygen saturation of 97.0%. The patient had 13 oxygen desaturations that were 4% or greater resulting in an Oxygen Desaturation Index of 1.7. The patient spent 1.8 minutes, 0.4% of total sleep time with an oxygen saturation below 88%. Snoring Profile Snoring was mild to moderate, worse in the supine position. Cardiac Profile The EKG showed normal sinus rhythm, average pulse rate of 61 bpm with a minimum pulse of rate of 54 bpm and a maximum pulse rate of 80 bpm. No arrhythmias noted. EEG Profile Unremarkable, no evidence of seizures. Assessment and Plan Assessment and Plan (1) Insomnia: Qualifiers: Insomnia type: unspecified Qualified Code(s): G47.00 - Insomnia, unspecified Code(s): G47.00 - Insomnia, unspecified Status: Acute Assessment and Plan: This basic nocturnal polysomnogram on September 24, 2024 does not show sleep disordered breathing. She had normal sleep architecture, a normal sleep latency, the overall apnea-hypopnea index was 1.2. The lowest saturation was 86%. She did not have limb movements interrupting her sleep. No clear correlate for the patient's symptoms. She does have some sleep hygiene issues, staying in bed for much of the day and napping, waking at night watching TV, during the night. She reports getting 4-6 hours of sleep per night at home. During this study she had over 7 hours of sleep with a high sleep efficiency and normal sleep architecture including stage 3 sleep, recovery sleep which suggests she is sleep deprived.. The patient spent almost the entire night in the left lateral position. She was supine she had several obstructive events but was only supine of fraction of the night. Sleep hygiene recommendations should be reviewed. She has mood disorder, and review of her medication, symptoms and perhaps discussion with her primary care or psychiatrist may be needed to assure that she is on proper management for these conditions. Mood disorders and sleep disorders have a bidirectional relationship. Depression can worsen sleep, poor sleep can worsen depression. Kimberlee does not have limb movements disturbing her sleep. Sleep history includes medical cannabis. Chronic use of marijuana can disrupt sleep quality. BMI is 37. Weight management is advised. Clinical data suggests that weight loss of 10% can reduce the severity of respiratory events and snoring and improve AHI by as much as 25%. Elevated weight itself can increased daytimes sleepiness, independent of sleep disordered breathing. Being heavy can increase sleepiness through hormonal activity. Data The data obtained during this sleep study is adequate for interpretation. Certification This sleep study has been reviewed by a board certified sleep medicine physician.
[2024-09-30 20:10] VITALS: BMI 37.8
== END 2024-09-25 06:56 | disposition home or self-care (01) ==
LOC: CHSCSM 19:45
PROVIDERS: PCP Family Medicine Adolescent Medicine; Visit Provider Nurse Practitioner Family
DX: G47.00 Insomnia, unspecified (principal); G47.30 Sleep apnea, unspecified
CPT/HCPCS: 95810

== ENCOUNTER 2025-08-28 09:56 | Outpatient (CLI) | payer MEDICARE, SELFPAY ==
--- NOTE | ~2025-08-28 | CT_ITS ---
CT lung screening INDICATION: Nicotine dependence, screening COMPARISON: None. TECHNIQUE: CT examination of the entire thorax without contrast was performed using low dose technique. Thin section axial, sagittal and coronal images were included to increase sensitivity for small lung nodules. FINDINGS: PULMONARY NODULES: No suspicious noncalcified pulmonary nodules. OTHER PULMONARY FINDINGS: No significant nonnodular pleural or parenchymal abnormality is noted. No emphysematous changes are present. No pathologically enlarged lymph nodes are present. Normal heart size. To the limits of a nondedicated CT there are no significant coronary artery calcifications. UPPER ABDOMEN AND PERIPHERAL SOFT TISSUE: Limited views of the upper abdomen and peripheral soft tissue demonstrated no abnormalities. OSSEOUS STRUCTURES: Bone window shows no aggressive blastic or lytic lesions. IMPRESSION: 1. Lung-RADS category 1: No nodules or definitely benign nodules. Recommendations: 1 or 2: Annual screening with low-dose CT in 12 months. 2. No emphysematous changes are present. All CT scans at this facility are performed using low dose modulation techniques as appropriate to perform exam including the following: automated exposure control; use of iterative reconstruction technique; adjustment of the mA and/or kV according to patient size (this includes techniques or standardized protocols for targeted exams where dose is matched to indication/reason for exam). Reviewed, dictated and finalized at location [facility] IMPRESSION: 1. Lung-RADS category 1: No nodules or definitely benign nodules. Recommendations: 1 or 2: Annual screening with low-dose CT in 12 months. 2. No emphysematous changes are present. All CT scans at this facility are performed using low dose modulation techniqu es as appropriate to perform exam including the following: automated exposure c ontrol; use of iterative reconstruction technique; adjustment of the mA and/or kV according to patient size (this includes techniques or standardized protocol s for targeted exams where dose is matched to indication/reason for exam).
--- OUTSIDE RECORDS SUMMARY | 2025-08-28 10:21 | XMS_ITS | Clinical Summary ---
Author Organization [facility] Address [address] [place] [address] Care Team Providers Care Bush Hog Operator Name Role Phone Demetrio Morgan MD Primary [...] (07/21/2019): Added automatically from request for surgery [id number] ADHD 06/13/2019 GERD (gastroesophageal reflux disease) 9 HTN (hypertension) 06/13/2019 Class 2 obesity in adult 06/13/2019 TAIWO (obstructive sleep apnea) 06/13/2019 Fibromyalgia 06/13/2019 COPD (chronic obstructive pulmonary disease) Primary osteoarthritis of left knee 05/23/2019 Overview (05/23/2019): Added automatically from request for surgery [id number] Immunizations Immunization Administration Dates Next Due Influenza, Quadrivalent, Spl [...] reflux disease) COPD (chronic obstructive pulmonary disease) Hypertension Obesity Osteoarthritis Fibromyalgia Chronic pain Sleep [...] on file Legal Sex Female 9:53 PM QUALITY SPECIALIST Gender Identity Female 01/24/2020 10:39 AM CDT Sexual Orientation Bisexual 01/24/2020 10 :39 AM CDT Last Filed Vital Signs Vital Sign Reading Time Taken Comments Blood Pressure 142/86 03/01/2020 7:20 AM CDT Pulse 70 03/01/2020 7:20 AM CDT Temperature 36.4 C (97.6 F) 03/01/2020 7:20 AM CDT Respiratory Rate 16 03/01/2020 7:20 AM CDT Oxygen Saturation 99% 03/01/2020 7:20 AM CDT Inhaled Oxygen Concentration - - Weight 90.3 kg (199 lb) 07/29/2023 9:30 AM QUALITY SPECIALIST Height 154.9 cm (5' 1) 07/29/2023 9:30 AM QUALITY SPECIALIST Body Mass Index 37.6 07/29/2023 9:30 AM QUALITY SPECIALIST Plan of Treatment Health Maintenance Due Date Last Done Comments Breast Cancer Screening-Mammogram 1974 Colon Cancer Screening-Colonoscopy 1974 Depression Screening 1974 Hepatitis C Screening 1974 DTaP/Tdap/Td Vaccine (1 - Tdap) 1985 Hepatitis B Screening 1992 Regular Well Visit/Exam 18-64 1992 Pneumococcal vaccine <65 (1 of 2 - PCV) 1993 Zoster Vaccine (1 of 2) 2024 Influenza Vaccine (#1) 2025 05/13/2023, 2018 Medical Devices Implanted Type Area Manager Marketing Communications Device Identifier Shelf Expiration Date Model / Serial / Lot [employer] 3122-040 Smartset Medium Viscosity Cement 40gm Bone Sterile - Sn/A - [id number] Implanted:Qty: 1 on 02/29/2020 by Delta Mejia MD at [facility] Bone Cement Right: Knee [employer] 03/30/2021 3122-040 / N/A / [id number] [employer] [id number] Smartset Medium Viscosity Cement 40gm Bone Gentamicin - Sn/A - [id number] Implanted:Qty: 1 on 02/29/2020 by Delta Mejia MD at [facility] Bone Cement Right: Knee [employer] 12/28/2020 [id number] / N/A / [id number] [employer]/O rtho [id number] Legion Cruciate Retain Knee Right 4n Narrow Component Femoral - Sn/A - [id number] Implanted:Qty: 1 on 02/29/2020 by Delta Mejia MD at [facility] Other - see comments Right: Knee [employer]/ Ortho [id number] 12/30/2028 [id number] / N/A / [id number] [employer]/O rtho [id number] Ila Ii Cement Right Knee 3 Baseplate Tibial Titanium - Sn/A - [id number] Implanted:Qty: 1 on 02/29/2020 by Delta Mejia MD at [facility] Other - see comments Right: Knee [employer]/ Ortho [id number] 12/13/2028 [id number] / N/A / [id number] [employer]/O rtho [id number] Legion 13mm Dished Knee 3-4 Insert Tibial Xlpe - Sn/A - [id number] Implanted:Qty: 1 on 02/29/2020 by Dleta Mejia MD at [facility] Other - see comments Right: Knee [employer]/ Ortho [id number] 11/22/2027 [id number] / N/A / [id number] [employer]/O rtho [id number] Ila Ii Left Knee 3 Baseplate Tibial Titanium Nonporous - [id number] Implanted:Qty: 1 on 06/21/2019 by Delta Mejia MD at [facility] Left: Knee [employer]/ Ortho [id number] 09/13/2028 [id number] / / [id number] [employer]/O rtho [id number] Legion Cruciate Retain Knee Left 4n Narrow Component Femoral - [id number] Implanted:Qty: 1 on 06/21/2019 by Delta Mejia MD at [facility] Left: Knee [employer]/ Ortho [id number] 04/03/2029 [id number] / / [id number] [employer]/O rtho [id number] Legion 15mm Dished Knee 3-4 Insert Tibial Xlpe - [id number] Implanted:Qty: 1 on 06/21/2019 by Delta Mejia MD at [facility] Left: Knee [employer]/ Ortho [id number] 07/24/2028 [id number] / / [id number] [employer] [id number] Smartset Medium Viscosity Cement 40gm Bone Gentamicin - [id number] Implanted:Qty: 1 on 06/21/2019 by Delta Mejia MD at [facility] Left: Knee [employer] 09/30/2020 [id number] / / [id number] [employer] 3122-040 Smartset Medium Viscosity Cement 40gm Bone Sterile - [id number] Implanted:Qty: 1 on 06/21/2019 by Delta Mejia MD at [facility] Left: Knee [employer] [id number] 09/30/2020 3122-040 / / [id number] Insurance [facility] GOLD ADVANTAGE CON AETNA [facility] GOLD REF [employer]ANTRA GOLD ADVANTAGE CON AETNA [facility] ADVANTRA Advance Directives For more information, please contact: [phone] * Full Code (Latest Code Status on File) Date Activated Date Inactivated Comments 02/29/2020 12:37 PM 03/01/2020 2:32 PM * Full Code Date Activated Date Inactivated Comments 06/21/2019 1:02 PM 06/22/2019 4:36 PM Care Teams Bush Hog Operator Relationship Specialty Start Date End Date Demetrio Morgan MD PCP - General 10/09/17
--- OUTSIDE RECORDS SUMMARY | 2025-08-28 10:21 | XMS_ITS | Clinical Summary ---
Author Organization [facility] Address [address] [place] [address] Phone Care Team Providers Care Cdl Bulk Driver Name Role Phone Demetrio Morgan MD [...] 78 04/02/2021 1:56 AM CDT Temperature 36.3 C (97.3 F) 04/02/2021 1:56 AM CDT Respiratory Rate 18 04/02/2021 1:56 AM CDT Oxygen Saturation 98% 04/02/2021 1:56 AM CDT Inhaled Oxygen Concentration - - Weight 84.8 kg (187 lb) 04/02/2021 12:22 AM CDT Height 154.9 cm (5' 1) 04/02/2021 12:22 AM CDT Body Mass Index 35.33 04/02/2021 12:22 AM CDT Plan of Treatment Health Maintenance Due Date Last Done Comments Hepatitis C Virus (HCV) Screening 1974 TdaP Immunization 1974 Hepatitis B Immunization (1 of 3 - 19+ 3-dose series) 1993 Cologuard 2019 Colonoscopy 2019 Colorectal Cancer Screening 2019 Immunochemical Fecal Occult Blood 2019 Medicare Initial AWV [id number] 04/02/2022 Pneumococcal Immunization (5 0+ years) (1 of 1 - PCV) 2024 Zoster Immunization (1 of 2) 2024 Influenza Immunization (#1) 2025 SARS-COV-2 Immunization ( - 2024- season) 2025 Respiratory Syncytial Virus (RSV) Immunization (Adult) (1 - 1-dose 75+ series) 2049 Human Papillomavirus (HPV) Immunization (No Doses Required) Completed Meningococcal Immunization (ACWY) Aged Out No longer eligible based on patient's age to complete this topic Rotavirus Immunization Aged Out No lo nger eligible based on patient's age to complete this topic Insurance MEDICARE C AETNA Care Teams Cdl Bulk Driver Relationship Specialty Start Date End Date Demetrio Morgan MD PCP - General Family Medicine 04/02/21
--- OUTSIDE RECORDS SUMMARY | 2025-08-28 10:21 | XMS_ITS | Clinical Summary ---
Author Organization [facility] Address [address] [place] [address] Care Team Providers Care Sausage Meat Trimmer Name Role Phone Demetrio Morgan MD Primary Care Provider + Source Comments [facility],non-owned Affiliates and Associated Physician Practices is amultiple site organization consisting of ambulatory clinics and hospital sitesin [place], [place], [place] and [place]. This disclosure is being madepursuant to the Care Everywhere program and may not contain all information available regarding this patient. Last updated 18.[facility] Allergies Active Allergy Reactions Criticality Noted Date Comments Codeine Other Low 08/13/2017 SEVERE MIGRAINE Lidocaine Rash Medium 01/21/2018 Phenobarbital Other Low 08/13/2017 SEIZURES Quetiapine Anxiety Low 08/13/2017 JUMPY MUSCLES Medications * Be aware that medications may not be up to date on this document. Alwaysverify current medications with the patient. divalproex DR (DEPAKOTE) 250 MG tablet Take [...] 60 mg by mouth DAILY. 08/13/2017 Active [facility] Natural Products (OCTACOSANOL) 1000-5 MCG-UNIT Take by mouth BID. 08/13/2017 Active lisinopril (PRINIVIL; ZESTRIL) 20 MG tablet Take 20 mg by mouth DAILY. 08/13/2017 Active metoclopramide (REGLAN) 10 MG tablet Take 10 mg by mouth. 08/13/2017 Active LORazepam (ATIVAN) 1 MG tabletIndicatio ns:Chronic 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,Restle ss legs syndrome,Other insomnia,Myalgi a,Other fatigue Take 1 mg by mouth every 8 hours as needed for Anxiety Active baclofen (LIORESAL) 10 MG tabletIndicatio ns:Chronic 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,Restle ss legs syndrome,Other insomnia,Myalgi a,Other fatigue Take 10 mg by mouth 3 times daily May cause drowsiness. Active diclofenac potassium (CATAFLAM) 50 MG tabletIndicatio ns:Chronic 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,Restle ss legs syndrome,Other insomnia,Myalgi a,Other fatigue Take 50 mg by mouth 2 times daily Active SYMPROIC 0.2 MG TABSIndications :Chronic 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,Restle ss legs syndrome,Other insomnia,Myalgi a,Other fatigue 12/17/2017 Act anshul ondansetron (ZOFRAN) 4 MG tabletIndicatio ns:Chronic 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,Restle ss legs syndrome,Other insomnia,Myalgi a,Other fatigue Take 4 mg by mouth every 6 hours as needed for Nausea/Vomit ing Active furosemide (LASIX) 40 MG tabletIndicatio ns:Chronic 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,Restle ss legs syndrome,Other insomnia,Myalgi a,Other fatigue 01/08/2018 Act anshul LYRICA 150 MG capsuleIndicati ons:Chronic 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,Restle ss legs syndrome,Other insomnia,Myalgi a,Other fatigue 01/11/2018 Act anshul prochlorperazin e (COMPAZINE) 10 MG tabletIndicatio ns:Chronic 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,Restle ss legs syndrome,Other insomnia,Myalgi a,Other fatigue 12/08/2017 Act anshul tobramycin (TOBREX) 0.3 % ophthalmic solutionIndicat ions:Chronic 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,Restle ss legs syndrome,Other insomnia,Myalgi a,Other fatigue 10/22/2017 Act anshul Active Problems Problem Noted Date Diagnosed Date [...] = 0.6 oz pur e alcohol) Comments Unknown Sex and Gender Information Value Date Recorded Sex Assigned at Not on file Legal Sex Female 5:13 PM BEAM RACKER Gender Identity Not on file Sexual Orientation Not on file Last Filed Vital Signs Vital Sign Reading Time Taken Comments Blood Pressure 130/82 01/21/2018 3:12 PM CDT Pulse 84 01/21/2018 3:12 PM CDT Temperature 36.8 C (98.3 F) 01/21/2018 3:12 PM CDT Respiratory Rate - - Oxygen Saturation - - Inhaled Oxygen Concentration - - Weight 91.2 kg (201 lb) 01/21/2018 3:12 PM CDT Height 157.5 cm (5' 2) 01/21/2018 3:12 PM CDT Body Mass Index [...] SCREENING 1974 LIPID TESTING 1974 MAMMOGRAM 1974 HIV SCREENING 1989 DTAP/TDAP/TD VACCINES (1 - Tdap) 1993 HEPATITIS B VACCINE (1 of 3 - 19+ 3-dose series) 1993 PNEUMOCOCCAL VACCINE 50+ (1 of 2 - PCV) 1993 SCREENING FOR DIABETES 08/13/2020 08/13/2017 ZOSTER VACCINE (1 of 2) 2024 DEPRESSION SCREENING 08/31/2024 COVID-19 VACCINE (1 2024-2 6 season) 2025 INFLUENZA VACCINE (#1) 2025 HEPATITIS C SCREENING Completed 08/13/2017 HIB VACCINE Aged Out No longer eligi ble based on patient's age to complete this topic HPV VACCINE Aged Out No longer eligi ble based on patient's age to complete this topic MENINGOCOCCAL (Group B) VACC INE SHARED DECISION-MAKING Aged Out No longer eligibl e based on patient's age to complete this topic MENINGOCOCCAL GROUPS A/C/Y/W VACCINE Aged Out No longer eligible b ased on patient's age to complete this topic Procedures Procedure Name Priority Date/Time Associated Diagnosis Comments COMPREHENSIVE METABOLIC PANEL Routine 08/13/2017 11:37 AM BEAM RACKER HEPATITIS C ANTIBODY Routine 08/13/2017 11:37 AM BEAM RACKER from Last 3 Months or Most Recently Relevant to Health Maintenance Results * (ABNORMAL) COMPREHENSIVE METABOLIC PANEL (08/13/2017 11:37 AM BEAM RACKER) BUN 16 7 - 26 mg/dL [facility] Creatinine 0.7 0.6 - 1.2 mg/dL [facility] Sodium 140 136 - 145 mmol/L [facility] Potassium 4.1 3.5 - 4.5 mmol/L [facility] Chloride 106 98 - 107 mmol/L [facility] CO2 25 22 - 29 mmol/L [facility] Glucose 96 70 - 115 mg/dL [facility] Calcium 9.0 8.4 - 10.2 mg/dL [facility] Protein Total 7.1 6.0 - 8.3 g/dL [facility] Albumin 3.3(L) 3.4 - 5.0 g/dL [facility] Bilirubin Total 0.2 0.2 - 1.2 mg/dL [facility] Alkaline Phosphatase 85 40 - 150 Units/L [facility] ALT 15 0 - 55 Units/L [facility] AST 15 5 - 34 Units/L [facility] Anion Gap 13 8 - 18 [facility] BUN/Creatinine Ratio 23 7 - 23 [facility] Osmolality Calculated 291 270 - 300 mOsm/kg [facility] Albumin/Globulin Ratio 0.9(L) 1.1 - 2.3 [facility] eGFR >60 >60 mL/min/1.7 3 m2 [facility] Blood specimen (specimen) BLOOD SPECIMEN / Unknown 08/13/2017 11:37 AM BEAM RACKER 08/13/2017 12:04 PM BEAM RACKER Jennifer Nuñez MD LAB - CHEMISTRY [place] [address], [facility] [phone] * HEPATITIS C ANTIBODY (08/13/2017 11:37 AM BEAM RACKER) Hepatitis C Antibody Non-react [facility] Comment: Hepatitis C Antibody screen indicates no serologic evidence of past or current infection with Hepatitis C Virus. Patients with unexplained liver disease who are immunocompromised or suspected of having acute Hepatitis C infection may benefit from Nucleic Acid Test (JOAO) for Hepatitis C Viral RNA to confirm Hepatitis C status. Blood specimen (specimen) BLOOD SPECIMEN / Unknown 08/13/2017 11:37 AM BEAM RACKER 08/13/2017 12:06 PM BEAM RACKER Jennifer Nuñez MD LAB - CHEMISTRY [place] [address], [facility] [phone] from Last 3 Months or Most Recently Relevant to Health Maintenance Care Teams Sausage Meat Trimmer Relationship Specialty Start Date End Date Demetrio Morgan MD [address] [place] [id number] PCP - General 03/27/15
== END 2025-08-28 09:57 | disposition home or self-care (01) ==
LOC: CHSIMG 09:57
PROVIDERS: PCP Family Medicine Adolescent Medicine; Visit Provider Nurse Practitioner Family
DX: Z12.2 Encounter for screening for malignant neoplasm of respiratory organs (principal); Z87.891 Personal history of nicotine dependence
CPT/HCPCS: 71271